=== PATIENT | female | born 1975 | race Caucasian/White ===

== ENCOUNTER → 2017-01-09 | Outpatient (CLI) | payer MEDICAID ==
--- NOTE | 2017-01-09 11:14 | US ---
Complete Abdominal Ultrasound CLINICAL HISTORY: 41-year-old female with a history of some "gurgling" abdominal symptoms and weight gain. ICD 10 Diagnostic Code: R 19.8. TECHNIQUE: A curvilinear 5 MHz transducer was used to sonographically evaluate the upper abdomen. Col or Doppler was used. COMPARISON STUDY: None. FINDINGS: The pancreatic contour is normal, and mildly echogenic, consistent with some fatty infiltra tion. The abdominal aorta is normal in size, and tapers normally. The visualized IVC is normal in torie iber. The hepatic vein trifurcation is normal. The main portal vein is patent. The liver is enlarged and diffusely echogenic, consistent with steatosis, measuring 19.1 cm along the right midaxillary fanny e. There is no intra or extrahepatic bile duct dilatation. The common bile duct measures 4.6 mm. The gallbladder is moderately distended, and there is no evidence of cholelithiasis, sludge, polyp, wall thickening, pericholecystic fluid, or sonographic Tam sign. The gallbladder wall thickness is 1.9 mm. The right and the left kidneys are normal in size, shape, and contour, with a normal renal cortic al thickness, and no focal renal mass or hydronephrosis. The right kidney measures 10.8 x 4.6 x 4.8 c m, and the left kidney measures 9.5 x 5.2 x 5.2 cm. The spleen is mildly enlarged, and homogeneous in echotexture, measuring 12.5 x 4.8 x 12.4 cm. There is no ascites or pleural effusion. IMPRESSION: 1. Hepatomegaly with diffuse steatosis. 2. Mild splenomegaly. 3. Normal appearance of the gallbladder with no cholelithiasis, cholecystitis, or bile duct dilatatio n.
== END ==
LOC: FIMAGING 10:06
PROVIDERS: ATTEND Physician Assistant
DX: R19.8 Other specified symptoms and signs involving the digestive system and abdomen (principal); R63.5 Abnormal weight gain; R16.2 Hepatomegaly with splenomegaly, not elsewhere classified

== ENCOUNTER 2018-06-11 12:42 | Emergency (ER) | payer MEDICAID, OTHER ==
--- NOTE | 2018-06-11 12:57 | EDPHY ---
H & P Smoking Status: Current every day smoker Time Seen by Provider: 06/11/18 12:57 HPI/ROS: CHIEF COMPLAINT: M1 hold HISTORY OF PRESENT ILLNESS: 43-year-old female with a known history of schizoaffective disorder presents to the emergency department on an M1 hold. The patient has a history of schizophrenia and has been noncompliant with her medications. She went to [facility] today and they placed on M1 hold brought her to the emergency department for evaluation. She states that she has been eating and drinking normally. She does not feel suicidal or homicidal. She denies auditory or visual hallucinations. She has been hospitalized multiple times for mental illness, most recently was 2 years ago to get stabilized on medication. REVIEW OF SYSTEMS: Constitutional: No fever, no chills. Eyes: No double or blurry vision. ENT: No sore throat. Respiratory: No cough, no shortness of breath. Cardiac: No chest pain. Gastrointestinal: No abdominal pain, vomiting or diarrhea. Genitourinary: No dysuria. Musculoskeletal: No neck or back pain. Skin: No rashes. Neurological: No headache. (Alicia Lombardi) Past Medical/Surgical History: Schizoaffective disorder (Alicia Lombardi) Social History: Lives alone in [place] (Alicia Lombardi) Physical Exam: General Appearance: Alert, no distress. Tearful. No signs of trauma to her head. Eyes: Pupils equal and round. Extraocular motions are all intact. ENT: Mouth: Mucous membranes moist. Respiratory: No wheezing, rhonchi, or rales, lungs are clear to auscultation. Cardiovascular: Regular rate and rhythm. Gastrointestinal: Abdomen is soft and nontender, no masses, no rebound or guarding, bowel sounds normal. Neurological: Alert and oriented x 3, cranial nerves II through XII grossly intact Skin: Warm and dry, no rashes. Musculoskeletal: Nontender to palpate along the cervical, thoracic or lumbar spine. Neck is supple. Extremities: Full range of motion and no peripheral edema. Psychiatric: Patient is oriented X 3, there is no agitation. (Alicia Lombardi) Constitutional: Initial Vital Signs Temperature (C) 37.0 C 06/11/18 13:01 Heart Rate 100 06/11/18 13:01 Respiratory Rate 18 06/11/18 13:01 Blood Pressure 157/98 H 06/11/18 13:01 O2 Sat (%) 93 06/11/18 13:01 O2 Delivery Mode Room Air Allergies/Adverse Reactions: No Known Allergies Allergy (Verified 06/11/18 13:03) Home Medications: Medication Instructions Recorded LORazepam [Ativan (*)] 1 mg PO DAILY #30 tab 08/29/16 cloZAPine [Clozaril (*)] 300 mg PO DAILY #90 tab 08/29/16 Medical Decision Making ED Course/Re-evaluation: 43-year-old female known history of schizoaffective disorder presents noncompliant with her medications. She is on an M1 hold. The patient was given 10 mg of IM Haldol. She was sent for medical clearance for likely inpatient placement to stabilize on medication. (Alicia Lombardi) 0616: Patient noted be rather psychotic. We have ordered her Zyprexa. She received Ativan in the evening earlier as well as Benadryl. She appears acutely psychotic. Zyprexa will be given will re-evaluate. Patient be signed over to Dr. Torrez at 7:00 a.m. Shift change. (Angelito Cash) Patient her some remained stable. At 7:45 a.m. The patient has been accepted to [facility] under the care of . (Angel Torrez) Differential Diagnosis: Depression including functional and major depression, situational depression, medication side effect, drugs and alcohol abuse. (Alicia Lombardi) - Data Points Laboratory Results: Laboratory Results 06/11/18 12:35 06/11/18 12:35 Medications Given: Discontinued Medications Diphenhydramine HCl (Benadryl) 50 mg PO EDNOW ONE Stop: 06/12/18 02:01 Last Admin: 06/12/18 02:05 Dose: 50 mg Haloperidol Lactate (Haldol Injection) 10 mg IM EDNOW ONE Stop: 06/11/18 15:36 Last Admin: 06/11/18 19:08 Dose: Not Given Lorazepam (Ativan) 2 mg PO EDNOW ONE Stop: 06/11/18 15:33 Last Admin: 06/11/18 16:15 Dose: 2 mg Lorazepam (Ativan) 2 mg PO EDNOW ONE Stop: 06/11/18 22:53 Last Admin: 06/11/18 22:53 Dose: 2 mg Lorazepam (Ativan) 1 mg PO EDNOW ONE Stop: 06/12/18 06:12 Last Admin: 06/12/18 06:13 Dose: 1 mg Olanzapine (Zyprexa Zydis) 10 mg PO EDNOW ONE Stop: 06/12/18 06:13 Last Admin: 06/12/18 06:13 Dose: 10 mg Departure - Departure Disposition: Other Psych, Not [facility] Clinical Impression: Schizoaffective disorder Qualifiers: Schizoaffective disorder type: unspecified Qualified Code(s): F25.9 - Schizoaffective disorder, unspecified Condition: Fair Referrals: Patient,NotPresent [Unknown] - As per Instructions
--- NOTE | 2018-06-11 13:09 | EDPHY ---
H & P Time Seen by Provider: 06/11/18 12:57 HPI/ROS: CHIEF COMPLAINT: M1 hold HISTORY OF PRESENT ILLNESS: [must have 4 elements] REVIEW OF SYSTEMS: Constitutional: [No fever, no chills.] Eyes: [No double or blurry vision.] ENT: [No sore throat.] Respiratory: [No cough, no shortness of breath.] Cardiac: [No chest pain.] Gastrointestinal: [No abdominal pain, vomiting or diarrhea.] Genitourinary: [No dysuria.] Musculoskeletal: [No neck or back pain.] Skin: [No rashes.] Neurological: [No headache.] Smoking Status: Current every day smoker Constitutional: Initial Vital Signs Temperature (C) 37.0 C 06/11/18 13:01 Heart Rate 100 06/11/18 13:01 Respiratory Rate 18 06/11/18 13:01 Blood Pressure 157/98 H 06/11/18 13:01 O2 Sat (%) 93 06/11/18 13:01 O2 Delivery Mode Room Air Allergies/Adverse Reactions: No Known Allergies Allergy (Verified 06/11/18 13:03) Home Medications: Medication Instructions Recorded LORazepam [Ativan (*)] 1 mg PO DAILY #30 tab 08/29/16 cloZAPine [Clozaril (*)] 300 mg PO DAILY #90 tab 08/29/16 Departure - Departure Referrals: Patient,NotPresent [Primary Care Provider] - As per Instructions
[2018-06-11 13:50] LABS: PLATELET COUNT 260 10^3/uL (150-400)
[2018-06-11] MEDS ORDERED: LORazepam 1 MG TAB PO ONE ×2 (15:32→22:52)
[2018-06-11] MEDS ORDERED: HALOPERIDOL LACT 5 MG/ML INJ IM ONE (15:35)
[2018-06-11] MEDS ORDERED: LORazepam 1 MG TAB ONE (22:50)
[2018-06-12] MEDS ORDERED: diphenhydrAMINE 25 MG CAP PO ONE (02:00)
[2018-06-12] MEDS ORDERED: OLANZapine 10 MG/2 ML VIAL IM ONE (05:58)
[2018-06-12] MEDS ORDERED: OLANZapine DISINTEGR 10 MG TAB ONE (06:00)
[2018-06-12] MEDS ORDERED: LORazepam 1 MG TAB ONE (06:07)
[2018-06-12] MEDS ORDERED: LORazepam 1 MG TAB PO ONE ×2 (06:11→09:08)
[2018-06-12] MEDS ORDERED: OLANZapine DISINTEGR 10 MG TAB PO ONE (06:12)
[2018-06-12 09:42] VITALS: BP 129/85
== END 2018-06-12 09:39 ==
LOC: EDUNIT#
DX: F25.9 Schizoaffective disorder, unspecified (principal); F17.200 Nicotine dependence, unspecified, uncomplicated
CPT/HCPCS: 80305; G0480; J1630

== ENCOUNTER 2018-11-27 13:42 | Inpatient (IN) | payer MEDICAID, OTHER ==
[2018-11-27] MEDS ORDERED: OLANZapine 10 MG/2 ML VIAL IM ONE (13:56)
--- NOTE | 2018-11-27 13:56 | EDPHY ---
H & P Source: Patient Exam Limitations: No limitations - Medical/Surgical History Hx Asthma: No Hx Chronic Respiratory Disease: No Hx Diabetes: No Hx Cardiac Disease: No Hx Renal Disease: No Hx Cirrhosis: No Hx Alcoholism: No Hx HIV/AIDS: No Hx Splenectomy or Spleen Trauma: No Other PMH: schizoaffective disorder - Social History Smoking Status: Current every day smoker Time Seen by Provider: 11/27/18 13:45 HPI/ROS: CHIEF COMPLAINT: M1 psychiatric hold HISTORY OF PRESENT ILLNESS: The patient presents the emergency department on M1 psychiatric hold. She has a history of schizoaffective disorder. The patient reportedly has been off of her regular medications. She was found psychotic in the [employer] the parking lot. In the emergency department the patient is quite disorganized and psychotic. She is unable to provide any significant history. The patient typically is followed at [facility]. The patient's mother is reportedly in route to the emergency department. REVIEW OF SYSTEMS: A comprehensive 10 point review of systems is otherwise negative aside from elements mentioned in the history of present illness. To the emergency department. (Zoran Collins) - Physical Exam Exam: General Appearance: Disheveled female Eyes: Pupils equal and round no pallor or injection ENT, Mouth: Mucous membranes moist Respiratory: There are no retractions, lungs are clear to auscultation Cardiovascular: Regular rate and rhythm Gastrointestinal: Abdomen is soft and nontender, no masses, bowel sounds normal Neurological: 5/5 strength all 4 extremities Skin: Warm and dry, no rashes Musculoskeletal: Neck is supple nontender Extremities: symmetrical, full range of motion Psychiatric: Psychotic (Zoran Collins) Constitutional: Initial Vital Signs Temperature (C) 36.4 C 11/27/18 13:45 Heart Rate 108 H 11/27/18 13:45 Respiratory Rate 18 11/27/18 13:45 Blood Pressure 183/74 H 11/27/18 13:45 O2 Sat (%) 94 11/27/18 13:45 O2 Delivery Mode Room Air Allergies/Adverse Reactions: No Known Allergies Allergy (Verified 06/11/18 13:03) Home Medications: Medication Instructions Recorded NK [No Known Home Meds] 11/28/18 Medical Decision Making ED Course/Re-evaluation: The patient presents the ED with acute psychosis. The patient did receive Zyprexa upon arrival. The patient is quite uncooperative and refuses to be examined even after taking this medication. The patient was placed on an M1 72 hr hold. Screening laboratories have been sent which do demonstrate a leukocytosis, evidence of dehydration and a slight lactic lactic acidosis. The patient's mother is reliable historian and has come to the emergency department. She tells me she has been concerned about the patient's increasing abdominal distension in the setting of her long-term psychiatric medications. The patient apparently has not consented to any laboratory testing or imaging in the past. The patient currently denies any complaints of abdominal pain and refuses to let me perform a adequate abdominal examination. The patient does consent to receiving IV fluids. She received an additional 1 mg of Ativan. In the setting of her leukocytosis I have ordered a CT scan of the abdomen pelvis. Patient is noted to have nonspecifically elevated liver function test. The patient was seen by the psychiatric service. She is tentatively accepted at [address] [place] [address] however the on-call psychiatrist would not accept her until her " labs looked better." The patient will receive 2 L of normal saline and have her laboratory studies repeated. Patient will be transferred to Dr. Logan at 9pm. (Zoran Collins) Differential Diagnosis: The differential diagnosis considered includes psychosis, bipolar mood disorder , dehydration, metabolic abnormalities, substance intoxication (Zoran Collins ) Other Provider: Care assumed from Dr. Collins at 9:00 p.m., plan for abdominal CT. Additionally CBC LFTs and chemistry will be repeated after IV fluids. 2124: CT report reviewed. 2204: Results and plan including CT reading discussed with the mother at this time, by myself. Signed out to Dr. Candelario Lemus with plan for repeat labs after IV fluids, psychiatric inpatient placement. (Gustavo Logan) [address] Logan pending IV hydration and reassessment of laboratory values for planned medical clearance for mental health facility. [address] corea are improved. I anticipate patient can be transferred to [address] [place] [address] in the morning. (Dean Lemus) I assumed care of this patient from Dr. Lemus at 7:00 a.m. On 11/28/2018. The patient has been somewhat agitated and was given a dose of Ativan 1 mg IV. Her last dose of Ativan was at 1:30 a.m.. This will be her 4th dose of Ativan since her admission to the emergency department. She also received Zyprexa 10 mg yesterday. Her agitation worsened after she was notified that she would be admitted to [address] [place] [address]. I reviewed her original labs and the repeat labs, drawn after she was hydrated. Her sodium has normalized. I reviewed her 8:00 a.m. Vital signs and she is no longer tachycardic. I feel that she is medically safe for admission to [address] [place] [address]. EMTALA form has been completed. Transfer will be arranged. (Zee Mosley) - Data Points Laboratory Results: Laboratory Results 11/27/18 22:30 11/27/18 22:30 Medications Given: Clozapine (Clozaril) 25 mg PO HS LYNDON Stop: 05/27/19 20:59 Last Admin: 11/28/18 22:11 Dose: 25 mg Discontinued Medications Sodium Chloride (Ns) 1,000 mls @ 0 mls/hr IV EDNOW ONE; Wide Open PRN Reason: Protocol Stop: 11/27/18 18:17 Last Admin: 11/27/18 19:09 Dose: Not Given Sodium Chloride (Ns) 1,000 mls @ 0 mls/hr IV EDNOW ONE; Wide Open PRN Reason: Protocol Stop: 11/27/18 18:17 Last Admin: 11/27/18 19:10 Dose: Not Given Sodium Chloride (Ns) 1,000 mls @ 0 mls/hr IV EDNOW ONE; Wide Open PRN Reason: Protocol Stop: 11/27/18 19:53 Last Admin: 11/27/18 19:53 Dose: 1,000 mls Sodium Chloride (Ns) 1,000 mls @ 0 mls/hr IV EDNOW ONE; Wide Open PRN Reason: Protocol Stop: 11/27/18 20:40 Last Admin: 11/27/18 20:40 Dose: 1,000 mls Lorazepam (Ativan Injection) 1 mg IVP EDNOW ONE Stop: 11/27/18 19:53 Last Admin: 11/27/18 19:54 Dose: 1 mg Lorazepam (Ativan Injection) 1 mg IVP EDNOW ONE Stop: 11/28/18 01:42 Last Admin: 11/28/18 01:42 Dose: 1 mg Lorazepam (Ativan Injection) 1 mg IVP EDNOW ONE Stop: 11/28/18 07:36 Last Admin: 11/28/18 07:45 Dose: 1 mg Lorazepam (Ativan Injection) 1 mg IVP EDNOW ONE Stop: 11/28/18 09:16 Last Admin: 11/28/18 09:23 Dose: 1 mg Olanzapine (Zyprexa Injection) 10 mg IM EDNOW ONE Stop: 11/27/18 13:57 Last Admin: 11/27/18 14:06 Dose: 10 mg Paliperidone (Invega) 6 mg PO ONCE ONE Stop: 11/28/18 10:50 Last Admin: 11/28/18 11:50 Dose: Not Given Departure - Departure Disposition: [facility] IP Clinical Impression: Dehydration Psychosis Qualifiers: Psychosis type: schizotypal disorder Qualified Code(s): F21 - Schizotypal disorder Schizoaffective disorder Qualifiers: Schizoaffective disorder type: unspecified Qualified Code(s): F25.9 - Schizoaffective disorder, unspecified Condition: Fair
[2018-11-27 16:26] LABS: PLATELET COUNT 327 10^3/uL (150-400)
[2018-11-27] MEDS ORDERED: NS 1,000 ML IV ONE ×4 (18:16→20:39)
[2018-11-27] MEDS ORDERED: LORazepam 2 MG/ML INJ ONE (19:41)
[2018-11-27] MEDS ORDERED: LORazepam 2 MG/ML INJ IVP ONE (19:52)
[2018-11-27] MEDS ORDERED: IOPAMIDOL (ISOVUE-300) 100 ML BTL ONE (20:11)
[2018-11-27 23:21] LABS: PLATELET COUNT 269 10^3/uL (150-400)
[2018-11-28] MEDS ORDERED: LORazepam 2 MG/ML INJ ONE (01:33)
[2018-11-28] MEDS ORDERED: LORazepam 2 MG/ML INJ IVP ONE ×3 (01:41→09:15)
--- NOTE | 2018-11-28 07:48 | ASMTTLCEVL ---
TLC Evaluation - Basic Information Evaluation Start Date and 11/27/2018 06:30 PM Time Hospital Status Answers: Court-Ordered Court-Ordered Start Date 09/30/2018 08:20 PM and Time Patient statement Notes: Im just really mad at people. No, Im just fine. Narrative Notes: Pt is a 43 year old female with a hx of schizophrenia, on a terminal clerk cert from Dr. Carmona at [facility]. Pt is an open client at [facility]. Per mother, Maddison, for the past weeks she has noticed pt declining. Maddison states pt believes she is a [employer] general and is saluting people, believes she is a doctor of psychiatry and insists people call her Dr. Clayton. Pt did tell this ad copy writer Dr. Clayton was her name. Maddison stated that pt also has been chanting in Telugu and talking to spirits. Maddison stated that today she called pt several time but she did not answer the phone so she went to her apt to check on her but pt would not answer the door. Maddison stated that is unlike her. Mother states she does have a mercado to pts apt and when he went inside, it appeared that nobody has been staying there for a while. Mother stated that the police believe she has been living on the streets. Mother stated that when pt stays on her medications she is able to function independlty. Per Dr. Carmona letters for [facility], Ms. Saleem has a serious mental illness and as a result, remains gravely disabled, Pt accepts voluntary but evidence suggests she would not follow recommended treatment if not on a court order. She is not competent to participate in decisions. Without medications, she is unable to meet her basic needs for survival. Pt was unable to participate in the evaluation. Information for this eval was obtained from [facility] and Mother Waldemar. Diagnosis History Notes: Pt has a hx of schizophrenia. Prior suicide attempts Notes: None reported. Prior hospitalizations Notes: Pt has a hx of 19 hospitalizations with her first one when she was 20 years old. Pt has been to [facility] multiple times and has stayed for a couple months. Pt was also at [facility] in June 2018. Pt was at [facility] on 08/2016. Treatment Responses Notes: Mother Maddison states that the longer pt stays in the hospital, the better she does when she discharges. History of violence Notes: None reported. Psychiatrist: Dr. Tristen Carmona Medications (name, dosage, route, freq uency) Notes: Clozapine. Per mother, pt has a hx of checking her meds. Mother suspects pt may not be taking her medications. Allergies/Reaction Notes: Nka Sleep Notes: Per mother, she doesnt believe pt has been sleeping. Appetite Notes: Unable to assess. Medical/Surgical history Notes: Mother suspects pt may have type 2 diabetes and reports she has had difficulty breathing and worries about sleep apnea. Substance use history (frequency, intensity, his tory, duration) Notes: Unable to assess. Pts utox was positive for marijuana. Family composition Notes: Pt has 2 sisters and 1 brother. Mother reports they are all very supportive of pt. Need for family Answers: Yes participation in patient's care Family psychiatric/substance abuse history Notes: Pts mother stated she suspects her mother may have been bipolar but was never dx. Mother stated that pts GMOC experienced extreme highs and lows and stated, I went through hell growing up. Mother also reported that on pts paternal side, someone in a mental institution but nobody would talk about it. Developmental history Notes: Mother stated that pt is highly intelligent and has tested at "a genius level." Mother stated prior to pt becoming ill, she was at the top of her class in high school. Abuse concerns Answers: None Marital status/children Notes: Unmarried, pt has one 8 year old daughter adopted. Living situation Notes: Pt lives alone in [address] 8 housing in [place]. Pt mother states she goes and checks on pt frequently. Sexual history/orientation Notes: Pt is heterosexual Peer support/family strengths Notes: Pts primary support is mother and therapeutic relationships. Education level/history Notes: Pt is reported to have always been artistic and earned several scholar ships to attend art school. However according to pts mother pt has only completed one year of college. 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 Notes: None reported. Legal Notes: Pt has a hx of being in [facility]ci. Reason unclear. Taoism/Spiritual Notes: Pt is reportedly Judaism and speaks Telugu well. Leisure Notes: Per mother, pt is artistic. Collateral Notes: Mother-Maddison MHP Patient's strengths Answers: Artistic/Creative/Musical (Please select at least TWO strengths): Intelligent Supportive Family [facility] Evaluation - Mental Status Exam Appearance: Answers: Unkempt Disheveled Eye Contact: Answers: Avoiding Mood: Answers: Irritable Affect: Answers: Distracted Hostile Behavior: Answers: Uncooperative Restless Wandering Speech: Answers: Illogical Thought Process: Answers: Disorganized Disoriented Insight: Answers: Poor Judgement: Answers: Poor Hallucinations: Answers: Auditory Command Delusions: Answers: Taoism/Spiritual Pt reported to have Answers: No suicidal/self-injuring ideation/behavior? Pt reported to be making Answers: No suicidal/self-injuring threats? Pt reported to have Answers: No aggression/assault ideation/behavior? Pt reported to be making Answers: No aggression/assault threats? Pt exhibits inability to Answers: Yes care for self/grave disability? Ideation/behavior is Answers: Yes chronic? Patient has a specific Answers: No plan? History of Answers: No suicidal/self-injuring ideation, behavior, or threats? History of Answers: No aggressive/assaultive ideation, behavior, or threats? History of serious Answers: No physical harm to self/others while in treatment setting? [facility] Evaluation - Suicide/Homicide Risk Suicide Risk Factors: Answers: Agitation Impulsivity Schizoaffective Disorder Schizophrenia Homicide/violence risk Answers: None factors: Current Suicidal Answers: No Ideation? Current Suicidal Ideation Answers: No in the Past 48 Hours? Current Suicidal Ideation Answers: No in the Past Month? Current Suicidal Answers: No Ideation, Worst Ever? Suicide Internal Answers: Taoism Beliefs Protective Factors: Suicide External Answers: Responsibility to Protective Factors: Children Social Support Ranking of patient's Answers: Moderate suicidal risk: Ranking of patient's Answers: Low homicidal risk: TLC Evaluation - Wrap-up BDI Total Score: Unable to complete BSS Total Score: Unable to complete AXIS I Diagnosis (include DSM-V and ICD-10 codes), must also be entered in [employer], which is the source of truth. Notes: Schizophrenia 295.90 (F20.9) In consultation with [facility] ED physician, Zee Mosley MD and on-call psychiatric clinican, Lemuel Mendez both concurred that pt appears to meet 27-65 criteria requiring psychiatric hospitalization as pt appears to be gravely disabled due to a mental illness condition. Evaluation End Date and 11/27/2018 08:35 PM Time (HH:SHRAVAN): Date Signed: 11/28/2018 07:48 AM Electronically Signed By:Violet Calle
--- NOTE | 2018-11-28 07:51 | ASMTLCPROG ---
Notes Note: Notes: TLC attempted to explain to pt need for inpt hospitalization and informed of admission to 3 with no success. Pt refused to sign pt. rights. TLC met with mother to inform of [facility] admission. Mother expressed agreement to pt.'s admission and satisfactiion with 3 admission since pt had been successfully treated at [facility] MH unit in the past. TLC informed MHP of pt.'s dispo, spoke jones Owusu who will initiate transfer of cert to . Date Signed: 11/28/2018 07:51 AM Electronically Signed By:Violet Calle
--- NOTE | 2018-11-28 07:53 | ASMTTCLDSP ---
TLC Discharge Disposition Disposition: Answers: Admit Disposition Notes: Notes: In consultation with [facility] ED physician, Zee Mosley MD and on-call psychiatric clinican, Lemuel Mendez both concurred that pt appears to meet 27-65 criteria requiring psychiatric hospitalization as pt appears to be gravely disabled due to a mental illness condition. For inpatient Lemuel Mendez [facility] admission, the following psychiatrist agreed to accept patient for admission to [facility] ([facility]): Hold initiated by: Answers: Other Notes: retirement certification Date Signed: 11/28/2018 07:52 AM Electronically Signed By:Violet Calle
[2018-11-28] MEDS ORDERED: MAGNESIUM HYDROXIDE 30 ML UDCUP PO PRN (10:43)
[2018-11-28] MEDS ORDERED: MAG HYDROX/AL HYDROX/SIMETH 30 ML UDCUP PO PRN (10:43)
[2018-11-28] MEDS ORDERED: OLANZapine DISINTEGR 10 MG TAB PO PRN (10:43)
[2018-11-28] MEDS ORDERED: LORazepam 0.5 MG TAB PO PRN ×2 (10:43→10:53)
[2018-11-28] MEDS ORDERED: ACETAMINOPHEN 325 MG TAB PO PRN (10:43)
[2018-11-28] MEDS ORDERED: PALIPERIDONE 3 MG TAB.ER PO ONE (10:49)
--- NOTE | 2018-11-28 13:28 | BAPA ---
DATE OF SERVICE: 11/28/2018 CHIEF COMPLAINT: "I am also a doctor. I am a doctor from the [facility]." HISTORY OF PRESENT ILLNESS: Patient refuses to meet with this MOLDER MACHINE for psychiatric assessment and history. The following information will be taken from previous records, emergency department note, TLC evaluation, and records from patient's outpatient provider at [facility]. From the ED note dated 11/27/2018, the patient presents to the emergency department on M1 psychiatric hold. The patient reportedly has a history of schizoaffective disorder. The patient has reportedly been off her regular medications. The patient was found psychotic in the [employer] parking lot. Patient presents to the emergency department disorganized and psychotic. The patient was unable to provide any significant information during ED evaluation. The patient is followed by [facility] for outpatient treatment. From the TLC evaluation dated 11/27/2018, patient is currently on a long-term certification and court-ordered medications from [facility]. The court-ordered start time of 09/30/2018, at 8:20 p.m. Patient reported to the [facility] seaman officer, "I'm just really mad at people. No, I'm just fine." The patient has a history of schizophrenia and is currently on a long-term certification from Dr. Carmona at [facility]. The patient is an open client at [facility]. The patient's mother reported she has noticed the patient has been declining over the past several weeks. Mother reports patient believes she is a [employer] and is saluting people, believes she is a doctor of Psychiatry and insists people call her Dr. Clayton. Patient did report to the [facility] seaman officer that her name is Dr. Clayton. Mother reported she visited the patient's apartment, and when she went inside, it appeared that nobody had been staying there for quite some time. Mother reported she believes patient has been living on the streets. Mother reported when patient is adherent with medications, she is able to function independently. The patient is currently on long-term certification and court- ordered medications due to being gravely disabled due to her mental illness. From the patient's outpatient provider, [facility], the patient did not present for daily monitored meds on Saturday after a 5-day med pass. Due to patient decompensating so quickly, outpatient providers are concerned she may have stopped taking medications over the holiday break. [facility] RN left patient a message recommending that she come in to the office before noon yesterday. The patient did not present, so a 24-hour post was delivered at 1:30 p.m. According to the outpatient provider's message, the patient has been not adherent to her outpatient medications. PAST PSYCHIATRIC HISTORY: From the TLC evaluation, the patient has a history of schizophrenia. Reportedly patient has a history of 19 hospitalizations with her first hospitalization when she was 20 years old. The patient has been hospitalized at [facility] at multiple times and has stayed for a course of a couple months. The patient has also been hospitalized at [facility] [place] in June of 2018. The patient was most recently hospitalized at [address] in August of 2016. The patient's mother reports that patient does respond well to treatment, and typically, the longer her hospital stay, the better she does when she discharges. The patient's mother reports the patient does have a history of cheeking her medications, and Mother reported she suspects the patient has not been taking her medications as prescribed. The patient is currently prescribed Clozaril, and this is a medication that is listed on her court-ordered medication from the court. Mother reported during the TLC evaluation, she believes patient has not been sleeping. ALLERGIES: No known allergies. CURRENT MEDICATIONS: 1. Zyprexa Zydis 10 mg p.o. q.4 hours p.r.n. for acute agitation and psychosis. 2. Ativan 1 mg p.o. q.4 hours p.r.n. for acute agitation. 3. Clozaril 25 mg p.o. q.h.s. PAST MEDICAL HISTORY: From the TLC evaluation, Mother reported to the [facility] seaman officer she suspects patient may have type 2 diabetes and reports patient has difficulty breathing and worries about sleep apnea. SOCIAL HISTORY: The patient has 2 sisters and 1 brother. The patient reports the family is very supportive of patient. The patient's mother reports patient has a history of being highly intelligent and has tested at a "genius level." The patient's mother reported that before becoming ill, patient was at the top of her class in high school. The patient is not and has one 8-year-old daughter who is adopted. The patient currently lives alone in [place] [address] in [place]. The patient's mother states she goes and checks on the patient frequently. The patient's sexual orientation is reported as heterosexual. The patient's primary support is her mother and her therapeutic relationships. The patient is reported to have always been artistic and earned several scholarships to attend art school. According to patient's mother, patient has only completed 1 year of college. 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 The patient has no history of duty. The patient does have a history of being in half-way for an unknown reason. The patient is reportedly Mormonism and speaks Korean well. SUBSTANCE USE HISTORY: From the TLC evaluation, this was unable to be assessed. The patient's urine toxicology was positive for marijuana and was negative for all other substances screened and negative for ethyl alcohol. FAMILY PSYCHIATRIC HISTORY: From the TLC evaluation, the patient's mother reported she suspects mother may have been bipolar but was never diagnosed. The patient's mother reports that the patient's maternal grandmother experienced extreme highs and lows. ADMISSION LABS AND STUDIES: 1. CBC from 11/27/2018, within normal limits except white blood cells were elevated at 16.79. Neutrophils were elevated at 82.4. Lymphocytes were low at 5.8. Eosinophils were low at 0.1. Basophils were low at 0.1. Absolute neutrophils were elevated at 13.83. Absolute lymphocytes low at 0.97. Absolute monocytes were elevated at 1.85. Absolute eosinophils were low at 0.02. 2. VBG lactic acid within normal limits at 1.33. 3. BMP within normal limits except chloride was elevated at 115. Carbon dioxide was low at 20. BUN was elevated at 48. Glucose was elevated at 110. 4. Liver function from 11/27/2018, within normal limits except conjugated bilirubin was elevated at 0.8. AST was elevated at 228. ALT elevated at 158, and albumin was elevated at 5.3. 5. Toxicology from 11/27/2018, non-negative for THC. Negative for all other substances screened and negative for ethyl alcohol. MENTAL STATUS EXAM: The patient is a well-nourished female looking older than stated chronological age. Attire is appropriate. Dress is hospital garb. Grooming status is inappropriate and disheveled. Ambulation is independent. Gait is normal and coordinated. Posture is normal and relaxed. Eye contact is inappropriate, at times staring, other times avoided. Motor activity is appropriate with purposeful, organized coordinated movements with no involuntary movements noted. Attitude is uncooperative, guarded, defensive, and irritable. The patient appears disinterested and does not relate well to this interviewer. Language production is spontaneous. Rate is rapid. Latency of response is shortened with irritable tone and high volume. Amount is at times, hyper talkative. Articulation is clear. Patient reports mood as okay with constricted, flat, and incongruent inappropriate affect. The patient's thought process is nonlinear and illogical with loose associations. The patient does not report suicidal, homicidal thoughts, ideas, or plans. The patient denies auditory or visual hallucinations. Patient reports delusions. The patient specifically reports delusions being a psychiatrist. The patient does not appear to be attending to internal stimuli. The patient is oriented to person and place. The patient's attention and concentration are poor. The patient's insight and judgment are poor. The patient does not report undesirable side effects from current medications. DIAGNOSES: Based on the patient's history and current presentation, the patient 's diagnoses are: 1. Schizophrenia. 2. Cannabis use disorder. FORMULATION: The patient is a 43-year-old female single, unemployed, currently living in [place], has most recently been reported homeless and not staying in her apartment, presents to the hospital involuntarily and currently on a long- term certification and court-ordered medications due to being gravely disabled. The patient requires continued inpatient care because of current psychosis. The patient presents with problems of increased psychosis that have likely been steadily increasing over the past week due to patient's nonadherence to outpatient medications. The patient's life has been affected by these problems including inability to test reality, communicate her basic needs, and attend to her ADLs. The exacerbation of symptoms was likely preceded by the patient's nonadherence to outpatient medications. The patient has a past psychiatric history of schizophrenia with multiple psychiatric hospitalizations since the age of 20. The patient is a high safety risk due to current psychosis, inability to test reality, communicate her basic needs, and independently care for herself. Protective factors while hospitalized include ongoing safety checks, active involvement in treatment, and support from our treatment team. The patient could benefit from inpatient hospitalization for safety, crisis stabilization, and medication evaluation. PLAN: 1. Psychotropic medications: After reviewing options, risks, and benefits with the patient, the patient agrees to continue current medications listed above. No other medication changes at this time as more time is needed to determine ongoing tolerability and efficacy. Plan is to continue to observe patient for response and side effects from medications, and ongoing monitoring and evaluation. 2. Review with patient informed consent and recommendations for psychotropic medication treatment listed below 3. Labs: A1c, lipid panel, TSH 4. Therapy: continue milieu and group therapy 5. Further investigation including gathering information from patients relatives and review of past case records to inform treatment plan. 6. Safety/Wellness plan and follow-up outpatient appointments to be established prior to discharge. Next steps are for patient to meet with career technical counselor to plan a safe discharge plan and establish outpatient services for ongoing treatment. 7. Confer with inpatient treatment team regarding treatment plan. 8. Address psychosocial stressors by meeting with special needs caregiver to establish discharge plan including referrals for outpatient services. 9. Legal status: LTC / COM 10. Consider discharge next week if patient is in stable condition, safe, and has a safe discharge plan. ESTIMATED LENGTH OF STAY: 7-10 days PSYCHOTROPIC MEDICATION TREATMENT INFORMED CONSENT and RECOMMENDATIONS: Review nature of condition, diagnosis, and prognosis. Review nature and purpose of psychotropic medication treatment. Review type of psychotropic medications being ordered. Review risk and benefits of psychotropic medication treatment. Review probable length of time will need to take medications. Review risk and benefits of not undergoing psychotropic medication treatment. Review alternative treatments to psychotropic medications. Review psychotropic medications contraindications, drug-drug interactions, side effects, and importance of reporting any side effects to a psychiatric provider or nurse during inpatient hospitalization, and upon discharge to patients psychiatric outpatient provider, primary care provider, or other health direct care counselor. Review importance of asking a nurse, psychiatric provider, or primary care provider any questions or problems concerning the psychotropic medications. Verify patient understands the information that has been provided, and understands, accepts, and agrees to psychotropic medications. Review patients safety plan and importance of patient to communicate to staff while hospitalized if patient is ever a danger to self/others, or unable to care for self, and upon discharge, the importance for patient to contact [facility] or [facility], or go to the nearest emergency room, if patient is ever a danger to self/others, or unable to care for self. Recommend that upon discharge patient establish medication management treatment with a psychiatric provider, establishes routine therapy appointments, and follow-up with primary care provider. Verify patient understands and agrees to these recommendations. /[id number]/MODL MTDD
--- NOTE | 2018-11-28 14:27 | PDMN ---
Medical Necessity Medical necessity: Pt meets inpt criteria per MD order and [facility] B-[id number], Schizophrenia Spectrum Disorders, Adult: Inpatient Care, 6 days. 43 y/o presenting on M1 hold and currently on terminal system operator certification and court- ordered medications due to being gravely disabled, hx of schizophrenia, now admitted w/schizophrenia w/current and increased psychosis requiring inpt psychiatric hospitalization.
--- NOTE | 2018-11-28 15:04 | BCON ---
INTERNAL MEDICINE CONSULTATION DATE OF CONSULTATION: 11/28/2018 REASON FOR REFERRAL: Medical clearance for inpatient behavioral health stay. HISTORY OF PRESENT ILLNESS: This patient came to the emergency department yesterday on an M1 hold. Reportedly, she had been off her psychiatric medications and was found psychotic in a parking lot at a shopping center in [place]. She was disorganized and psychotic in the emergency room and eventually had some improvement after treatment with olanzapine. She was evaluated by the mental health team and admitted for further psychiatric care. She currently complains of foot pain and requests ibuprofen but specifically requests real ibuprofen rather than substitute. PAST MEDICAL HISTORY: 1. Schizoaffective disorder. 2. Obesity. PAST SURGICAL HISTORY: She denies any history of surgeries. MEDICATIONS: 1. Clozapine daily. 2. Lorazepam 1 mg p.o. daily. SOCIAL HISTORY: She lives in supported housing by herself. She is a smoker. She does not use alcohol. Her toxicology screen was non-negative for marijuana. FAMILY HISTORY: Noncontributory. REVIEW OF SYSTEMS: On detailed discussion of her foot pain, she actually relates numbness in her feet. She denies any recent weight change but reports she has had considerable weight gain since she came into psychiatric care. She denies cough or dyspnea, fevers or chills, nausea, vomiting, constipation, or diarrhea, though she does relate that in the past week she was drinking aloe supplement and that did something to her stomach. She denies that she had diarrhea. She feels thirsty. Otherwise, a 10-point review of systems is negative. PHYSICAL EXAM: VITALS: Blood pressure is 132/91, heart rate is 123, respiratory rate is 16, oxygen saturation is 98% on room air, temperature is 36.5 degrees centigrade. Blood pressure on presentation to the emergency department was 183/74. She has not been weighed, but she is obese appearing. GENERAL: This is an obese woman, dressed in hospital smock, sitting up in bed, cooperative and in no acute distress. HEENT: Extraocular movements are intact. She is not compliant with gaze to assess pupillary response. Mucous membranes are somewhat dry. She has a crowded airway, Mallampati class 4. Dentition is in good condition. NECK: Supple. HEART: There is a regular rate and rhythm. She is tachycardic. There are no murmurs, rubs, or gallops. LUNGS: Clear to auscultation bilaterally. ABDOMEN: Obese and benign. EXTREMITIES: There is no cyanosis, clubbing, or edema. Radial and dorsalis pedis pulses are 2+ bilaterally. NEUROLOGIC: She is alert. Orientation was not checked, though she knows she is in a psychiatric hospital. Cranial nerves 2-12 to the extent that she was cooperative are grossly intact. There is no obvious focal weakness, and she is able to move all extremities. Sensation is absent to light touch on her great toes and reduced on the plantar surfaces of her feet bilaterally. LABORATORY STUDIES: Drawn yesterday in the emergency department, she had considerable leukocytosis initially with a white blood cell count of 25 and a mild right shift with 0.2, immature granulocytes. Subsequently after hydration white blood cell count was 16.79. The left shift had resolved. It was predominantly neutrophils and monocytes. There was no anemia, and platelets were normal. Venous blood gas revealed lactic acid at 1.3, which is within normal range. Serum chemistry was consistent with dehydration initially with a BUN of 53 and a creatinine of 1.3. Sodium was elevated at 147. After hydration , sodium had normalized at 141 and BUN had improved from 53 to 48. Creatinine had normalized to 1.0. She had an elevated chloride at 115 and a reduced carbon dioxide at 20. Glucose was elevated at 110 on the second determination and 142 initially. Liver function tests revealed an elevated bilirubin at 0.8, and AST and ALT were elevated at 228 and 158. Albumin was slightly high at 5.3. After hydration, bilirubin was still mildly high at 0.7 and AST and ALT had improved but were still elevated at 168 and 122. Lipid panel was done. Triglycerides were high at 191, cholesterol was low at 115, LDL was low at 42, and HDL was low at 35. Lipase was 112. TSH was normal at 0.546. Toxicology screen in the serum was negative for ethyl alcohol, and the urine was non- negative for marijuana but negative for other substances of abuse. On chart review within the past 2 years she had serologic testing for hepatitis and HIV, and these were all negative. ASSESSMENT/RECOMMENDATIONS: 1. Schizoaffective disorder and likely medication noncompliance: Pending further evaluation and management per Psychiatry and the mental health team. 2. Hepatic steatosis: Hemoglobin A1c has been ordered. If she has an elevated hemoglobin A1c, metformin would be a good medication both to treat diabetes or prediabetes and to treat hepatic steatosis. Metformin might help with weight loss as well. Advise that after discharge she be referred to Gastroenterology for further evaluation regarding her liver disease. 3. Obesity: This may be partly due to psychiatric medications. Advise consideration of avoiding medications that might cause further weight gain, but her psychosocial stabilization takes priority at present. 4. Dehydration: She was still dehydrated on the 2nd set of labs that were drawn after IV hydration in the emergency department. She currently is requesting water. Advise encouraging increased fluid intake. 5. Peripheral neuropathy of unclear etiology: Hesitate to prescribe any medications. I will add on a B12 to the labs that have already been drawn to rule out a B12 deficiency as contributory. Await hemoglobin A1c to evaluate for diabetes. She might benefit from gabapentin or pregabalin more so than ibuprofen. 6. Tobacco dependence syndrome: Advised smoking cessation. 7. Possible prediabetes or diabetes: Option of treatment with medication with metformin as discussed above. She would benefit from weight loss and dietary compliance, though these may be difficult given her psychiatric state. I see no medical contraindications to this patient's continued stay on the inpatient behavioral health unit or to any psychiatric medications or procedures. Thank you very much for including me in the care of this patient, and please do not hesitate to contact me or the hospitalist service should there be need for further medical evaluation. /[id number]/MODL MTDD
[2018-11-28] MEDS: cloZAPine 25 MG TAB PO SCH (22:11)
[2018-11-29 06:55] VITALS: BP 130/77
[2018-11-29] MEDS ORDERED: PALIPERIDONE 3 MG TAB.ER PO SCH (09:00)
--- NOTE | 2018-11-29 11:25 | ASMTBHMTP ---
Master Treatment Plan Master Treatment Plan Answers: Impaired Reality for: Date: 11/29/2018 Diagnosis on Admission: Schizophrenia 295.90 Expected length of stay: 3-5 Days Reason for admission: Notes: Per TLC Evaluation - Pt. is a 43 year old female with a hx of schizophrenia, on a sheet layer cert from Dr. Carmona at [facility]. Pt. is an open client at [facility]. Per mother, Maddison, for the past weeks she has noticed pt. declining. Maddison states pt believes she is a [employer] general and is saluting people, believes she is a doctor of psychiatry and insists people call her Dr. Clayton. Pt. did tell this write Dr. Clayton was her name. Maddison stated that pt. also has been chanting in Sinhala and talking to spirits. Maddison stated that today she called pt. several times but she did not answer the phone so she went to her apt to check on her but pt. would not answer the door. Maddison stated that is unlike her. Mother states she does have a mercado to pt's apt and when she went inside, it appeared that nobody has been staying there for a while. Mother stated that the police believe she has been living on the streets. Mother stated that when pt. stays on her medication, she is able to function independently. Pt. accepts voluntary but evidence suggests she would not follow recommended treatment if not on a court order. She is not competent to participate in decisions. Without medications, she is unable to meet her basic needs for survival." Pt. was unable to participate in the evaluation. Information for this eval was obtained from [facility] and Mother Maddison. Patient's stated presenting problems: Notes: Pt. stated she was "stripped out in a bad way" adding the police stated they had received a call from pt's mother. Patient's goals for treatment: Notes: "Get cleaned up and get out soon" Patient's strengths: Notes: Pt. stated "Not up for any of this" Identify supports outside of hospital: Notes: Pt. stated she "hates [facility]" Discharge criteria: Notes: Psychotic symptoms will be reduced or eliminated with return to baseline functioning in affect, thinking and behavior prior to discharge. Initial disposition plan/considerations: Notes: Return to apartment in [place] Master Treatment Plan Required Signatures Psychiatrist signature: Answers: Psychiatrist: RN on-shift signature: Answers: RN: Patient signature: Answers: Patient: Date Signed: 11/29/2018 11:24 AM Electronically Signed By:Codie Herrera
[2018-11-29] MEDS ORDERED: LORazepam 1 MG TAB PO PRN (13:30)
--- NOTE | 2018-11-29 15:01 | ASMTCMCOM ---
CM Note CM Note Notes: Pt and CC completed MTP and placed in pt's chart. Pt. stated she wants to be called "Dr. Clayton". Pt. stated "in the celestial timing of things this is a bad time for me to be here". Pt. reports being upset with her family for calling the police on her. Pt. stated she does not want any of her family allowed on the unit. Pt. stated she has had "issues with apartment" but declined to share more. Pt. stated she hates Dr. Carmona. Pt. declined to speak to CC further. Pt. presents as alert, disorganized, delusional, responding to internal stimuli, making odd gestures, and lacking eye contact. Staff report pt sleeping 6.5 hours and being medication compliant. Date Signed: 11/29/2018 03:01 PM Electronically Signed By:Codie Herrera
--- NOTE | 2018-11-29 16:07 | SOAPPROG ---
SOAP Progress Note Assessment/Plan: Assessment: 43 yo woman with h/o schizoaffective disorder who had been living on street was admitted to on M1 hold d/t grave disability after stopping her psych meds and exhibiting sxs of psychosis. Per ED note: The patient presents the emergency department on M1 psychiatric hold. She has a history of schizoaffective disorder. The patient reportedly has been off of her regular medications. She was found psychotic in the [place] the parking lot. In the emergency department the patient is quite disorganized and psychotic. She is unable to provide any significant history. The patient typically is followed at [facility]. The patient's mother is reportedly in route to the emergency department. Plan: 11/29/18 16:03 1. Patient is on LTC/COM. Per [facility] liaison, Antonella Lange, patient was last given Clozaril at [facility] clinic on 11/20/18. 2[address]. Carmona feels patient was doing well on Clozaril 300mg daily and would prefer no med changes, according to Antonella. Dr. Carmona claims patient is usually cooperative with taking PO meds when she's in hospital. 3. Patient took Clozaril 25mg last night. 4. CCM Subjective: Patient standing in hallway saluting peers. She told staff she is a "[employer] general." She also insists staff address her as "Dr. Clayton." She wants staff to know she is a "psychological doctor." Patient is angry that her family called police b/c she had left her apartment. She claims she is having "issues" with her apartment, but refuses to talk about it. Police found patient in parking lot acting bizarrely. Family believes she has been sleeping on street for several days b/c she was too scared at her apartment. The P liaison stated that patient was last given Clozaril at [facility] clinic on 11/20/18. Objective: Vital Signs Temp Pulse Resp BP Pulse Ox 36.5 C 128 H 16 130/77 H 97 11/28/18 10:52 11/29/18 06:00 11/29/18 06:00 11/29/18 06:00 11/29/18 06:00 MSE: Affect: Blunted Mood: "OK" TP: Disorganized, illogical TC: Denies any SI /HI, paranoid, delusional Insight/Judgment: Impaired - Time Spent With Patient Time Spent With Patient: 15" - Pending Discharge Pending Discharge Within 24 Hours: No Pending Discharge Within 48 Hours: No ICD10 Worksheet Patient Problems: Problems Problem Status Onset Dehydration Acute Psychosis Acute Schizoaffective disorder Acute Acute psychosis Acute
[2018-11-29] MEDS: cloZAPine 25 MG TAB PO SCH (19:20)
--- NOTE | 2018-11-30 17:08 | SOAPPROG ---
SOAP Progress Note Assessment/Plan: Assessment: 43 yo woman with h/o schizoaffective disorder who had been living on street was admitted to on M1 hold d/t grave disability after stopping her psych meds and exhibiting sxs of psychosis. Per ED note: The patient presents the emergency department on M1 psychiatric hold. She has a history of schizoaffective disorder. The patient reportedly has been off of her regular medications. She was found psychotic in the [place] the parking lot. In the emergency department the patient is quite disorganized and psychotic. She is unable to provide any significant history. The patient typically is followed at [facility]. The patient's mother is reportedly in route to the emergency department. Plan: 11/29/18 16:03 1. Patient is on LTC/COM. Per [facility] liaison, Antonella Lange, patient was last given Clozaril at [facility] clinic on 11/20/18. 2[address]. Carmona feels patient was doing well on Clozaril 300mg daily and would prefer no med changes, according to Antonella. Dr. Carmona claims patient is usually cooperative with taking PO meds when she's in hospital. 3. Patient took Clozaril 25mg last night. 4. CCM 11/30/18 17:05 1. Patient reluctantly taking Clozaril at HS. 2. Patient still quite psychotic, talking to herself, +RIS, insists she is "doctor." 3. Patient did not sleep last night. 4. CCM Subjective: Patient pacing in halls, talking to herself. When MD approached patient, she saluted. Last night, staff report patient stayed awake and washed her shoes in sink. She didn't believe she was given right meds until she looked at packaging herself and eventually took Clozaril. Objective: Vital Signs Temp Pulse Resp BP Pulse Ox 36.5 C 128 H 16 130/77 H 97 11/28/18 10:52 11/29/18 06:00 11/29/18 06:00 11/29/18 06:00 11/29/18 06:00 MSE: Affect: Irritable, labile Mood: "No" TP: Disorganized, illogical TC: Denies any SI/HI, +paranoid, +grandiose delusions Perception: Denies AH/VH Insight/Judgment: Impaired - Time Spent With Patient Time Spent With Patient: 15" - Pending Discharge Pending Discharge Within 24 Hours: No Pending Discharge Within 48 Hours: No ICD10 Worksheet Patient Problems: Problems Problem Status Onset Dehydration Acute Psychosis Acute Schizoaffective disorder Acute Acute psychosis Acute
[2018-11-30] MEDS: cloZAPine 25 MG TAB PO SCH (20:34)
[2018-12-01] MEDS ORDERED: cloZAPine 25 MG TAB PO SCH (06:32)
--- NOTE | 2018-12-01 06:38 | SOAPPROG ---
SOAP Progress Note Assessment/Plan: Assessment: Schizoaffective Disorder, Bipolar Type. No improvement noted. (see subjective/ objective note). Patient is not safe to discharge at this time as patient continues to exhibit signs of psychosis, and express psychosis symptoms. Patient requires continued inpatient care because of current psychosis, and requires inpatient level of care to stabilize in order to no longer be gravely disabled due to mental illness. Patient is unable to communicate her basic needs, unable to test reality, and continues to require prompting and direction from staff for all ADLs. Patient exhibits inability to provide for herself, neglecting self-care, withdrawn from social interactions, currently shows inability to maintain any appropriate aspect of personal responsibility as an adult, patient becomes agitated and irritable easily and continues exhibited irritable behavior toward staff, refusing PRN medications for acute agitation. Support system has inability to manage functional impairment at lower level of care. Patient could benefit from continued inpatient hospitalization for crisis stabilization, safety, and medication evaluation. Plan: 1. Psychotropic medications: After reviewing options, risks, and benefits patient agrees to continue current medications and agrees to increase Clozaril to 50 mg po QHS. No other medication changes at this time as more time is needed to determine ongoing tolerability and efficacy. Plan is to continue to observe patient for response and side effects from medications, and ongoing monitoring and evaluation. 2. Review with patient informed consent and recommendations for psychotropic medication treatment listed below 3. Labs: CBC (ANC) 12/04/17 4. Therapy: continue milieu and group therapy 5. Further investigation including gathering information from patients relatives and review of past case records to inform treatment plan. 6. Safety/Wellness plan and follow-up outpatient appointments to be established prior to discharge. Next steps are for patient to meet with dog daycare provider to plan a safe discharge plan and establish outpatient services for ongoing treatment. 7. Confer with inpatient treatment team regarding treatment plan. 8. Psychosocial stressors addressed through disability case manager 9. Legal status: LTC / COM 10. Consider discharge next week if patient is in stable condition, safe, and has a safe discharge plan. PSYCHOTROPIC MEDICATION TREATMENT INFORMED CONSENT and RECOMMENDATIONS: Review nature of condition, diagnosis, and prognosis. Review nature and purpose of psychotropic medication treatment. Review type of psychotropic medications being ordered. Review risk and benefits of psychotropic medication treatment. Review probable length of time patient will need to take medications. Review risk and benefits of not undergoing psychotropic medication treatment. Review alternative treatments to psychotropic medications. Review psychotropic medications contraindications, drug-drug interactions, side effects, and importance of reporting any side effects to a psychiatric provider or nurse during inpatient hospitalization, and upon discharge to patients psychiatric outpatient provider, primary care provider, or other health child day care center worker. Review importance of asking a nurse, psychiatric provider, or primary care provider any questions or problems concerning the psychotropic medications. Verify patient understands the information that has been provided, and understands, accepts, and agrees to psychotropic medications. Review patients safety plan and importance of patient to report to staff while hospitalized if patient is ever a danger to self/others, or unable to care for self, and upon discharge, the importance for patient to contact [facility] or [facility], or go to the nearest emergency room, if patient is ever a danger to self/others, or unable to care for self. Recommend that upon discharge patient establish medication management treatment with a psychiatric provider, establishes routine therapy appointments, and follow-up with primary care provider. Verify patient understands and agrees to these recommendations. 12/01/18 06:36 Subjective: Following up with patient for evaluation of psychosis, suzi, and safety. Patient states, "My name is Dr. Clayton." Patient reports taking medications as prescribed, and reports no side effects. Patient agrees to continue current medications. Objective: Vital Signs Temp Pulse Resp BP Pulse Ox 36.5 C 128 H 16 130/77 H 97 11/28/18 10:52 11/29/18 06:00 11/29/18 06:00 11/29/18 06:00 11/29/18 06:00 NURSING REPORT: Consulted with nursing for update on patients progress in treatment. Nurses report patient is not engaged in treatment, does not attend groups, slept 0 hours, was up most of the night standing in the hallway, refused PRN meds; expresses the following psychiatric symptoms: anxious and irritable; exhibits the following psychiatric symptoms: loss of reality testing , irritable, disorganized, tangential, loose associations; is eating all meals, requires continued prompting and direction from staff for ADLs, and is unable to communicate her basic needs; is agreeable to scheduled medications and taking as prescribed with no report of side effects, with no s/s of EPS/ akathisia, and denies SI/HI, denies A/V hallucinations, and reports delusions. Patient continues to refuse PRN medications. MD REPORT FROM WEEKEND: Patient reluctantly taking Clozaril, still paranoid and delusional, talking to herself. Believes she is a doctor or [employer] general. MSE: The patient is a well-nourished female looking older than stated chronological age. Attire is appropriate dress is hospital garb. Grooming status is inappropriate and disheveled. Ambulation is independent. Gait is normal and coordinated. Posture is abnormal and tense. Eye contact is inappropriate and avoided. Motor activity is appropriate with purposeful, organized, coordinated movements; with no involuntary movements. Attitude is uncooperative, defensive and guarded at times. Patient appears distracted and does not relate well to this interviewer. Language production is spontaneous. Rate is pressured. Latency of response is shortened with irritable tone. Articulation is clear. Patient reports mood as okay with expansive and inappropriate affect. Patients thought process is disorganized, non-linear and illogical, with loose associations, nonsensical. Patient does not report suicidal/homicidal thoughts, ideas, or plans. Patient denies auditory, visual hallucinations. Patient reports delusions. Patient does not appear to be attending to internal stimuli. Patients attention and concentration are poor. Patient is oriented x0. Patients insight is poor. Patients judgment is poor. - Time Spent With Patient Time Spent With Patient: 15 minutes, met with patient individually. - Pending Discharge Pending Discharge Within 24 Hours: No Pending Discharge Within 48 Hours: No ICD10 Worksheet Patient Problems: Problems Problem Status Onset Dehydration Acute Psychosis Acute Schizoaffective disorder Acute Acute psychosis Acute
--- NOTE | 2018-12-01 14:31 | ASMTCMCOM ---
CM Note CM Note Notes: CC approached pt to check in. Pt. stated she "get stressed out in here" and requested to speak to CC later. Pt. approached CC later stating she wants to make a call to her emergency contact. CC explained the pt's phone privileges have been restricted. Pt. became upset and yelled at CC. CC later interfered as pt was being verbally abusive to staff and requested pt to return to her room. Pt. then became verbally abusive to CC. Pt. presents as disorganized, irritated, rude, demanding, and uncooperative. Staff report pt. sleeping zero hours for the past two nights. Date Signed: 12/01/2018 02:29 PM Electronically Signed By:Codie Herrera
--- NOTE | 2018-12-02 10:43 | SOAPPROG ---
SOAP Progress Note Assessment/Plan: Assessment: Schizoaffective Disorder, Bipolar Type. No improvement noted. (see subjective/ objective note). Patient is not safe to discharge at this time as patient continues to exhibit signs of psychosis, and express psychosis symptoms. Patient requires continued inpatient care because of current psychosis, and requires inpatient level of care to stabilize in order to no longer be gravely disabled due to mental illness. Patient is unable to communicate her basic needs, unable to test reality, and continues to require prompting and direction from staff for ADLs. Patient exhibits inability to provide for herself, neglecting self-care, withdrawn from social interactions, currently shows inability to maintain any appropriate aspect of personal responsibility as an adult, patient becomes agitated and irritable easily and continues exhibited irritable behavior toward staff, refusing PRN medications for acute agitation. Support system has inability to manage functional impairment at lower level of care. Patient could benefit from continued inpatient hospitalization for crisis stabilization, safety, and medication evaluation. Plan: 1. Psychotropic medications: After reviewing options, risks, and benefits patient agrees to continue current medications and agrees to increase Clozaril to 50 mg po BID. No other medication changes at this time as more time is needed to determine ongoing tolerability and efficacy. Plan is to continue to observe patient for response and side effects from medications, and ongoing monitoring and evaluation. 2. Review with patient informed consent and recommendations for psychotropic medication treatment listed below 3. Labs: CBC 12/04/17 4. Therapy: continue milieu and group therapy 5. Further investigation including gathering information from patients relatives and review of past case records to inform treatment plan. 6. Safety/Wellness plan and follow-up outpatient appointments to be established prior to discharge. Next steps are for patient to meet with adult care provider to plan a safe discharge plan and establish outpatient services for ongoing treatment. 7. Confer with inpatient treatment team regarding treatment plan. 8. Psychosocial stressors addressed through complex case manager 9. Legal status: LTC / COM 10. Consider discharge next week if patient is in stable condition, safe, and has a safe discharge plan. PSYCHOTROPIC MEDICATION TREATMENT INFORMED CONSENT and RECOMMENDATIONS: Review nature of condition, diagnosis, and prognosis. Review nature and purpose of psychotropic medication treatment. Review type of psychotropic medications being ordered. Review risk and benefits of psychotropic medication treatment. Review probable length of time patient will need to take medications. Review risk and benefits of not undergoing psychotropic medication treatment. Review alternative treatments to psychotropic medications. Review psychotropic medications contraindications, drug-drug interactions, side effects, and importance of reporting any side effects to a psychiatric provider or nurse during inpatient hospitalization, and upon discharge to patients psychiatric outpatient provider, primary care provider, or other health child daycare worker. Review importance of asking a nurse, psychiatric provider, or primary care provider any questions or problems concerning the psychotropic medications. Verify patient understands the information that has been provided, and understands, accepts, and agrees to psychotropic medications. Review patients safety plan and importance of patient to report to staff while hospitalized if patient is ever a danger to self/others, or unable to care for self, and upon discharge, the importance for patient to contact [facility] or [facility], or go to the nearest emergency room, if patient is ever a danger to self/others, or unable to care for self. Recommend that upon discharge patient establish medication management treatment with a psychiatric provider, establishes routine therapy appointments, and follow-up with primary care provider. Verify patient understands and agrees to these recommendations. 12/02/18 10:42 Subjective: Following up with patient for evaluation of psychosis, suzi, and safety. Patient states, "Please you're standing too close." Patient reports taking medications as prescribed, and reports no side effects. Patient agrees to continue current medications. Objective: Vital Signs Temp Pulse Resp BP Pulse Ox 36.5 C 128 H 16 130/77 H 97 11/28/18 10:52 11/29/18 06:00 11/29/18 06:00 11/29/18 06:00 11/29/18 06:00 NURSING REPORT: Consulted with nursing for update on patients progress in treatment. Nurses report patient is not engaged in treatment, does not attend groups, slept 1.75 hours, was up most of the night standing in the hallway talking to herself, making hand motions as though she was talking to someone, refused PRN meds; expresses the following psychiatric symptoms: anxious and irritable; exhibits the following psychiatric symptoms: loss of reality testing , irritable, disorganized, tangential, loose associations; is eating all meals, requires continued prompting and direction from staff for ADLs, and is unable to communicate her basic needs; is agreeable to scheduled medications and taking as prescribed with no report of side effects, with no s/s of EPS/ akathisia, and denies SI/HI, denies A/V hallucinations, and reports delusions. Patient continues to refuse PRN medications. MD REPORT FROM WEEKEND: Patient reluctantly taking Clozaril, still paranoid and delusional, talking to herself. Believes she is a doctor or [employer] general. MSE: The patient is a well-nourished female looking older than stated chronological age. Attire is appropriate dress is hospital garb. Grooming status is inappropriate and disheveled. Ambulation is independent. Gait is normal and coordinated. Posture is abnormal and tense. Eye contact is inappropriate and avoided. Motor activity is appropriate with purposeful, organized, coordinated movements; with no involuntary movements. Attitude is uncooperative, defensive and guarded at times. Patient appears distracted and does not relate well to this interviewer. Language production is spontaneous. Rate is pressured. Latency of response is shortened with irritable tone. Articulation is clear. Patient reports mood as okay with expansive and inappropriate affect. Patients thought process is disorganized, non-linear and illogical, with loose associations, nonsensical. Patient does not report suicidal/homicidal thoughts, ideas, or plans. Patient denies auditory, visual hallucinations. Patient reports delusions. Patient does not appear to be attending to internal stimuli. Patients attention and concentration are poor. Patient is oriented x0. Patients insight is poor. Patients judgment is poor. - Time Spent With Patient Time Spent With Patient: 15 minutes, met with patient individually. - Pending Discharge Pending Discharge Within 24 Hours: No Pending Discharge Within 48 Hours: No ICD10 Worksheet Patient Problems: Problems Problem Status Onset Dehydration Acute Psychosis Acute Schizoaffective disorder Acute Acute psychosis Acute
[2018-12-02] MEDS: cloZAPine 25 MG TAB PO ONE ×2 (12:26→13:03)
[2018-12-02] MEDS ORDERED: cloZAPine 25 MG TAB PO ONE (12:34)
--- NOTE | 2018-12-02 13:01 | ASMTCMCOM ---
CM Note CM Note Notes: The patient was hostile, irritable, and suspicious. She was observed gesturing in the hallway with her hand raised. She explained that she is on a phone call restriction and requested a 2nd call to notify her "representation" that she is here. She stated, "I'm Dr. 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 Date Signed: 12/02/2018 01:00 PM Electronically Signed By:Ninfa Lawton
[2018-12-02] MEDS ORDERED: cloZAPine 25 MG TAB PO SCH (21:00)
--- NOTE | 2018-12-03 06:43 | SOAPPROG ---
SOAP Progress Note Assessment/Plan: Assessment: Schizoaffective Disorder, Bipolar Type. No improvement noted. (see subjective/ objective note). Patient is not safe to discharge at this time as patient continues to exhibit signs of psychosis, and express psychosis symptoms. Patient requires continued inpatient care because of current psychosis, and requires inpatient level of care to stabilize in order to no longer be gravely disabled due to mental illness. Patient is unable to communicate her basic needs, unable to test reality, and continues to require prompting and direction from staff for ADLs. Patient exhibits inability to provide for herself, neglecting self-care, withdrawn from social interactions, currently shows inability to maintain any appropriate aspect of personal responsibility as an adult, patient becomes agitated and irritable easily and continues exhibited irritable behavior toward staff, refusing PRN medications for acute agitation. Support system has inability to manage functional impairment at lower level of care. Patient could benefit from continued inpatient hospitalization for crisis stabilization, safety, and medication evaluation. Plan: 1. Psychotropic medications: After reviewing options, risks, and benefits patient agrees to continue current medications and agrees to change Clozaril to 100 mg po QD. No other medication changes at this time as more time is needed to determine ongoing tolerability and efficacy. Plan is to continue to observe patient for response and side effects from medications, and ongoing monitoring and evaluation. 2. Review with patient informed consent and recommendations for psychotropic medication treatment listed below 3. Labs: CBC 12/04/17 4. Therapy: continue milieu and group therapy 5. Further investigation including gathering information from patients relatives and review of past case records to inform treatment plan. 6. Safety/Wellness plan and follow-up outpatient appointments to be established prior to discharge. Next steps are for patient to meet with progressive care nurse to plan a safe discharge plan and establish outpatient services for ongoing treatment. 7. Confer with inpatient treatment team regarding treatment plan. 8. Psychosocial stressors addressed through director of casework services 9. Legal status: LTC / COM 10. Consider discharge next week if patient is in stable condition, safe, and has a safe discharge plan. PSYCHOTROPIC MEDICATION TREATMENT INFORMED CONSENT and RECOMMENDATIONS: Review nature of condition, diagnosis, and prognosis. Review nature and purpose of psychotropic medication treatment. Review type of psychotropic medications being ordered. Review risk and benefits of psychotropic medication treatment. Review probable length of time patient will need to take medications. Review risk and benefits of not undergoing psychotropic medication treatment. Review alternative treatments to psychotropic medications. Review psychotropic medications contraindications, drug-drug interactions, side effects, and importance of reporting any side effects to a psychiatric provider or nurse during inpatient hospitalization, and upon discharge to patients psychiatric outpatient provider, primary care provider, or other health child day care provider. Review importance of asking a nurse, psychiatric provider, or primary care provider any questions or problems concerning the psychotropic medications. Verify patient understands the information that has been provided, and understands, accepts, and agrees to psychotropic medications. Review patients safety plan and importance of patient to report to staff while hospitalized if patient is ever a danger to self/others, or unable to care for self, and upon discharge, the importance for patient to contact [facility] or [facility], or go to the nearest emergency room, if patient is ever a danger to self/others, or unable to care for self. Recommend that upon discharge patient establish medication management treatment with a psychiatric provider, establishes routine therapy appointments, and follow-up with primary care provider. Verify patient understands and agrees to these recommendations. 12/03/18 06:41 Subjective: Following up with patient for evaluation of psychosis, suzi, and safety. 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 Please respect me request. I usually take all of my medications during the day." Patient reports taking medications as prescribed, and reports no side effects. Patient agrees to continue current medications, and agrees to change Clozapine to AM dosing. Objective: Vital Signs Temp Pulse Resp BP Pulse Ox 36.5 C 128 H 16 130/77 H 97 11/28/18 10:52 11/29/18 06:00 11/29/18 06:00 11/29/18 06:00 11/29/18 06:00 NURSING REPORT: Consulted with nursing for update on patients progress in treatment. Nurses report patient is not engaged in treatment, does not attend groups, slept 0 hours, was up most of the night standing in the hallway talking to herself, making hand motions as though she was talking to someone, refused LYNDON and PRN meds; expresses the following psychiatric symptoms: anxious and irritable; exhibits the following psychiatric symptoms: loss of reality testing , irritable, disorganized, tangential, loose associations, nonsensical; is eating all meals, requires continued prompting and direction from staff for ADLs , and is unable to communicate her basic needs; is agreeable to scheduled medications and taking as prescribed with no report of side effects, with no s/ s of EPS/akathisia, and denies SI/HI, denies A/V hallucinations, and reports delusions. Patient continues to refuse PRN medications; patient refused Clozapine 50 mg po QHS. MD REPORT FROM WEEKEND: Patient reluctantly taking Clozaril, still paranoid and delusional, talking to herself. Believes she is a doctor or [place] general. MSE: The patient is a well-nourished female looking older than stated chronological age. Attire is appropriate dress is hospital garb. Grooming status is inappropriate and disheveled. Ambulation is independent. Gait is normal and coordinated. Posture is abnormal and tense. Eye contact is inappropriate and avoided. Motor activity is appropriate with purposeful, organized, coordinated movements; with no involuntary movements. Attitude is uncooperative, defensive and guarded at times. Patient appears distracted and does not relate well to this interviewer. Language production is spontaneous. Rate is pressured. Latency of response is shortened with irritable tone. Articulation is clear. Patient reports mood as okay with expansive and inappropriate affect. Patients thought process is disorganized, non-linear and illogical, with loose associations, nonsensical. Patient does not report suicidal/homicidal thoughts, ideas, or plans. Patient denies auditory, visual hallucinations. Patient reports delusions. Patient does not appear to be attending to internal stimuli. Patients attention and concentration are poor. Patient is oriented x0. Patients insight is poor. Patients judgment is poor. - Time Spent With Patient Time Spent With Patient: 15 minutes, met with patient individually. - Pending Discharge Pending Discharge Within 24 Hours: No Pending Discharge Within 48 Hours: No ICD10 Worksheet Patient Problems: Problems Problem Status Onset Psychosis Acute Schizoaffective disorder Chronic Acute psychosis Acute
[2018-12-03] MEDS: HALOPERIDOL LACT 5 MG/ML INJ IM PRN (11:38)
[2018-12-03] MEDS: LORazepam 2 MG/ML INJ IM PRN (11:38)
[2018-12-03] MEDS: cloZAPine 25 MG TAB PO SCH (11:43)
--- NOTE | 2018-12-03 14:25 | ASMTCMCOM ---
CM Note CM Note Notes: The patient initially attended clinical treatment team rounds. She was grandiose, escalated, and uncooperative. She was agitated, yelling, and refused to participate. She continued to refused medications; IM medication was administered. She is observed bizarrely gesturing and talking repetitively to herself both in her room, as well as in the milieu. Date Signed: 12/03/2018 02:24 PM Electronically Signed By:Ninfa Lawton
--- NOTE | 2018-12-04 07:47 | SOAPPROG ---
SOAP Progress Note Assessment/Plan: Assessment: Schizoaffective Disorder, Bipolar Type. No improvement noted. (see subjective/ objective note). Patient is not safe to discharge at this time as patient continues to exhibit signs of psychosis, and express psychosis symptoms. Patient requires continued inpatient care because of current psychosis, and requires inpatient level of care to stabilize in order to no longer be gravely disabled due to mental illness. Patient is unable to communicate her basic needs, unable to test reality, and continues to require prompting and direction from staff for ADLs. Patient exhibits inability to provide for herself, neglecting self-care, withdrawn from social interactions, currently shows inability to maintain any appropriate aspect of personal responsibility as an adult, patient becomes agitated and irritable easily and continues exhibited irritable behavior toward staff, refusing PRN medications for acute agitation, refused LYNDON medications yesterday, received ER medications (Haldol and Ativan). Support system has inability to manage functional impairment at lower level of care. Patient could benefit from continued inpatient hospitalization for crisis stabilization, safety, and medication evaluation. Plan: 1. Psychotropic medications: After reviewing options, risks, and benefits patient agrees to continue current medications. No medication changes at this time as more time is needed to determine ongoing tolerability and efficacy. Plan is to continue to observe patient for response and side effects from medications, and ongoing monitoring and evaluation. 2. Review with patient informed consent and recommendations for psychotropic medication treatment listed below 3. Labs: CBC 12/04/17 4. Therapy: continue milieu and group therapy 5. Further investigation including gathering information from patients relatives and review of past case records to inform treatment plan. 6. Safety/Wellness plan and follow-up outpatient appointments to be established prior to discharge. Next steps are for patient to meet with hospice care consultant to plan a safe discharge plan and establish outpatient services for ongoing treatment. 7. Confer with inpatient treatment team regarding treatment plan. 8. Psychosocial stressors addressed through manager of case management 9. Legal status: LTC / COM 10. Consider discharge next week if patient is in stable condition, safe, and has a safe discharge plan. PSYCHOTROPIC MEDICATION TREATMENT INFORMED CONSENT and RECOMMENDATIONS: Review nature of condition, diagnosis, and prognosis. Review nature and purpose of psychotropic medication treatment. Review type of psychotropic medications being ordered. Review risk and benefits of psychotropic medication treatment. Review probable length of time patient will need to take medications. Review risk and benefits of not undergoing psychotropic medication treatment. Review alternative treatments to psychotropic medications. Review psychotropic medications contraindications, drug-drug interactions, side effects, and importance of reporting any side effects to a psychiatric provider or nurse during inpatient hospitalization, and upon discharge to patients psychiatric outpatient provider, primary care provider, or other health healthcare liaison. Review importance of asking a nurse, psychiatric provider, or primary care provider any questions or problems concerning the psychotropic medications. Verify patient understands the information that has been provided, and understands, accepts, and agrees to psychotropic medications. Review patients safety plan and importance of patient to report to staff while hospitalized if patient is ever a danger to self/others, or unable to care for self, and upon discharge, the importance for patient to contact [facility] or [facility], or go to the nearest emergency room, if patient is ever a danger to self/others, or unable to care for self. Recommend that upon discharge patient establish medication management treatment with a psychiatric provider, establishes routine therapy appointments, and follow-up with primary care provider. Verify patient understands and agrees to these recommendations. 12/04/18 07:46 Subjective: Following up with patient for evaluation of psychosis, suzi, and safety. Patient states, "Good morning. I will work on taking my medications today." Patient agrees to continue current medications. Patient reports no side effects from current medications. Objective: Vital Signs Temp Pulse Resp BP Pulse Ox 36.5 C 128 H 16 130/77 H 97 11/28/18 10:52 11/29/18 06:00 11/29/18 06:00 11/29/18 06:00 11/29/18 06:00 NURSING REPORT: Consulted with nursing for update on patients progress in treatment. Nurses report patient is not engaged in treatment, does not attend groups, slept 2 hours, continues to be up most of the night standing in the hallway talking to herself, making hand motions as though she was talking to someone, refused LYNDON yesterday and received ER meds (Haldol and Ativan); expresses the following psychiatric symptoms: anxious and irritable; exhibits the following psychiatric symptoms: loss of reality testing, irritable, disorganized, tangential, loose associations, nonsensical; is eating all meals, requires continued prompting and direction from staff for ADLs, and is unable to communicate her basic needs; is agreeable to scheduled medications and taking as prescribed with no report of side effects, with no s/s of EPS/ akathisia, and denies SI/HI, denies A/V hallucinations, and reports delusions. MSE: The patient is a well-nourished female looking older than stated chronological age. Attire is appropriate dress is hospital garb. Grooming status is inappropriate and disheveled. Ambulation is independent. Gait is normal and coordinated. Posture is abnormal and tense. Eye contact is inappropriate and avoided. Motor activity is appropriate with purposeful, organized, coordinated movements; with no involuntary movements. Attitude is uncooperative, defensive and guarded at times. Patient appears distracted and does not relate well to this interviewer. Language production is spontaneous. Rate is pressured. Latency of response is shortened with irritable tone. Articulation is clear. Patient reports mood as okay with expansive and inappropriate affect. Patients thought process is disorganized, non-linear and illogical, with loose associations, nonsensical. Patient does not report suicidal/homicidal thoughts, ideas, or plans. Patient denies auditory, visual hallucinations. Patient reports delusions. Patient does not appear to be attending to internal stimuli. Patients attention and concentration are poor. Patient is oriented x0. Patients insight is poor. Patients judgment is poor. - Time Spent With Patient Time Spent With Patient: 15 minutes, met with patient individually. - Pending Discharge Pending Discharge Within 24 Hours: No Pending Discharge Within 48 Hours: No ICD10 Worksheet Patient Problems: Problems Problem Status Onset Psychosis Acute Schizoaffective disorder Chronic Acute psychosis Acute
[2018-12-04] MEDS: LORazepam 2 MG/ML INJ IM PRN (10:44)
[2018-12-04] MEDS: HALOPERIDOL LACT 5 MG/ML INJ IM PRN (10:44)
[2018-12-04] MEDS: cloZAPine 25 MG TAB PO SCH (10:51)
--- NOTE | 2018-12-04 12:35 | ASMTCMCOM ---
CM Note CM Note Notes: There is no observable change in the patient's affect and behavior. She continues to present as labile and hostile toward staff. The patient is seen posturing/gesturing in the hallway. She appears to be responding to internal stimuli. She is heard reciting to herself "Code 2, code 7, code, re-start code, code 1, code 3, code..." The patient continues to request multiple phone calls per shift. This ad writer explained the restriction to the patient. She replied, "You're fucked!" Date Signed: 12/04/2018 12:34 PM Electronically Signed By:Ninfa Lawton
--- NOTE | 2018-12-04 13:30 | SOAPPROG ---
SOAP Progress Note Assessment/Plan: Assessment: Dermatitis with skin fissures. Advise observing for excessive hand washing. I have prescribed triamcinolone ointment to 0.1% three times daily. Observe for resolution. 12/04/18 13:29 Subjective: Asked to see patient regarding rash and skin cracks on her hands. Patient says it is from the water. She is concerned that there is infection. Objective: Vital Signs Temp Pulse Resp BP Pulse Ox 36.5 C 128 H 16 130/77 H 97 11/28/18 10:52 11/29/18 06:00 11/29/18 06:00 11/29/18 06:00 11/29/18 06:00 Physical Exam - Physical Exam General Appearance: WD/WN, alert, no apparent distress, obese Skin: rash (Mildly erythematous flaky rash over her knuckles and scattered on the backs of her hands. Multiple fissures in the skin.) ICD10 Worksheet Patient Problems: Problems Problem Status Onset Psychosis Acute Schizoaffective disorder Chronic Acute psychosis Acute
[2018-12-04] MEDS ORDERED: HALOPERIDOL LACT 5 MG/ML INJ IM PRN (14:44)
[2018-12-04] MEDS: TRIAMCINOLONE 0.1% 15GM OINT TP SCH ×2 (16:25→19:33)
[2018-12-04] MEDS ORDERED: cloZAPine 25 MG TAB PO SCH (21:00)
--- NOTE | 2018-12-05 07:43 | SOAPPROG ---
SOAP Progress Note Assessment/Plan: Assessment: Schizoaffective Disorder, Bipolar Type. No improvement noted. (see subjective/ objective note). Patient is not safe to discharge at this time as patient continues to exhibit signs of psychosis, and express psychosis symptoms. Patient requires continued inpatient care because of current psychosis, and requires inpatient level of care to stabilize in order to no longer be gravely disabled due to mental illness. Patient is unable to communicate her basic needs, unable to test reality, and continues to require prompting and direction from staff for ADLs. Patient exhibits inability to provide for herself, neglecting self-care, withdrawn from social interactions, currently shows inability to maintain any appropriate aspect of personal responsibility as an adult, patient becomes agitated and irritable easily and continues exhibited irritable behavior toward staff, refusing PRN medications for acute agitation, refused LYNDON medications yesterday, received ER medications (Haldol and Ativan). Support system has inability to manage functional impairment at lower level of care. Patient could benefit from continued inpatient hospitalization for crisis stabilization, safety, and medication evaluation. Plan: 1. Psychotropic medications: After reviewing options, risks, and benefits patient agrees to continue current medications and increase Clozaril to 50 mg po BID. No medication changes at this time as more time is needed to determine ongoing tolerability and efficacy. Plan is to continue to observe patient for response and side effects from medications, and ongoing monitoring and evaluation. 2. Review with patient informed consent and recommendations for psychotropic medication treatment listed below 3. Labs: CBC 12/05/17 4. Therapy: continue milieu and group therapy 5. Further investigation including gathering information from patients relatives and review of past case records to inform treatment plan. 6. Safety/Wellness plan and follow-up outpatient appointments to be established prior to discharge. Next steps are for patient to meet with critical care nurse to plan a safe discharge plan and establish outpatient services for ongoing treatment. 7. Confer with inpatient treatment team regarding treatment plan. 8. Psychosocial stressors addressed through senior case manager 9. Legal status: LTC / COM 10. Consider discharge next week if patient is in stable condition, safe, and has a safe discharge plan. PSYCHOTROPIC MEDICATION TREATMENT INFORMED CONSENT and RECOMMENDATIONS: Review nature of condition, diagnosis, and prognosis. Review nature and purpose of psychotropic medication treatment. Review type of psychotropic medications being ordered. Review risk and benefits of psychotropic medication treatment. Review probable length of time patient will need to take medications. Review risk and benefits of not undergoing psychotropic medication treatment. Review alternative treatments to psychotropic medications. Review psychotropic medications contraindications, drug-drug interactions, side effects, and importance of reporting any side effects to a psychiatric provider or nurse during inpatient hospitalization, and upon discharge to patients psychiatric outpatient provider, primary care provider, or other health director of home care hospice. Review importance of asking a nurse, psychiatric provider, or primary care provider any questions or problems concerning the psychotropic medications. Verify patient understands the information that has been provided, and understands, accepts, and agrees to psychotropic medications. Review patients safety plan and importance of patient to report to staff while hospitalized if patient is ever a danger to self/others, or unable to care for self, and upon discharge, the importance for patient to contact [facility] or [facility], or go to the nearest emergency room, if patient is ever a danger to self/others, or unable to care for self. Recommend that upon discharge patient establish medication management treatment with a psychiatric provider, establishes routine therapy appointments, and follow-up with primary care provider. Verify patient understands and agrees to these recommendations. 12/05/18 07:42 Subjective: Following up with patient for evaluation of psychosis, suzi, and safety. Patient states, "Please do not interrupt me, I'm in the middle of something. FBI number 234-5, statue number 234-1, MARJORIE code 45-2." Patient reports taking medications as prescribed, and reports no side effects. Patient agrees to continue current medications. Objective: Vital Signs Temp Pulse Resp BP Pulse Ox 36.5 C 128 H 16 130/77 H 97 11/28/18 10:52 11/29/18 06:00 11/29/18 06:00 11/29/18 06:00 11/29/18 06:00 NURSING REPORT: Consulted with nursing for update on patients progress in treatment. Nurses report patient is not engaged in treatment, does not attend groups, slept 3 hours, continues to be up most of the night standing in the hallway talking to herself, making hand motions as though she was talking to someone, tearful at times, refused LYNDON yesterday and received ER meds (Haldol and Ativan); expresses the following psychiatric symptoms: anxious and irritable ; exhibits the following psychiatric symptoms: loss of reality testing, irritable, disorganized, tangential, loose associations, nonsensical; is eating all meals, requires continued prompting and direction from staff for ADLs, and is unable to communicate her basic needs; is agreeable to scheduled medications and taking as prescribed with no report of side effects, with no s/s of EPS/ akathisia, and denies SI/HI, denies A/V hallucinations, and reports delusions. MSE: The patient is a well-nourished female looking older than stated chronological age. Attire is appropriate dress is hospital garb. Grooming status is inappropriate and disheveled. Ambulation is independent. Gait is normal and coordinated. Posture is abnormal and tense. Eye contact is inappropriate and avoided. Motor activity is appropriate with purposeful, organized, coordinated movements; with no involuntary movements. Attitude is uncooperative, defensive and guarded at times. Patient appears distracted and does not relate well to this interviewer. Language production is spontaneous. Rate is pressured. Latency of response is shortened with irritable tone. Articulation is clear. Patient reports mood as okay with expansive and inappropriate affect. Patients thought process is disorganized, non-linear and illogical, with loose associations, nonsensical. Patient does not report suicidal/homicidal thoughts, ideas, or plans. Patient denies auditory, visual hallucinations. Patient reports delusions. Patient does not appear to be attending to internal stimuli. Patients attention and concentration are poor. Patient is oriented x0. Patients insight is poor. Patients judgment is poor. - Time Spent With Patient Time Spent With Patient: 15 minutes, met with patient individually. - Pending Discharge Pending Discharge Within 24 Hours: No Pending Discharge Within 48 Hours: No ICD10 Worksheet Patient Problems: Problems Problem Status Onset Psychosis Acute Schizoaffective disorder Chronic Acute psychosis Acute
[2018-12-05] MEDS ORDERED: cloZAPine 25 MG TAB PO SCH ×2 (09:00→12:30)
[2018-12-05] MEDS ORDERED: cloZAPine 100 MG TAB PO ONE (10:15)
[2018-12-05] MEDS: TRIAMCINOLONE 0.1% 15GM OINT TP SCH ×3 (10:25→20:55)
[2018-12-05] MEDS: cloZAPine 25 MG TAB PO SCH (12:46)
--- NOTE | 2018-12-05 13:14 | ASMTCMCOM ---
CM Note CM Note Notes: Pt reports feeling "fine". Pt. stated she slept "okay". Pt. stated she wants to speak with the doctor about "relief on this phone restricition", adding she would like to make 2 calls per shift and to increase the numbers she is allowed to call. Pt. stated her medications are now correct and willingly took them. CC continued to asked pt. questions, to which pt. stated she was eating and didn't want to answer any more questions. Pt. presents as alert, tense, delusional, fair eye contact, fidgety, and cooperative. Staff report pt. sleeping 3 hours and being medication compliant. Date Signed: 12/05/2018 01:13 PM Electronically Signed By:Codie Herrera
[2018-12-06] MEDS: cloZAPine 25 MG TAB PO SCH (09:00)
[2018-12-06] MEDS: TRIAMCINOLONE 0.1% 15GM OINT TP SCH ×3 (10:11→21:33)
[2018-12-06] MEDS ORDERED: HALOPERIDOL LACT 5 MG/ML INJ IM PRN (18:44)
--- NOTE | 2018-12-06 18:48 | SOAPPROG ---
SOAP Progress Note Assessment/Plan: Assessment: 43 yo woman with h/o schizoaffective disorder who had been living [address] was admitted to on M1 hold d/t grave disability after stopping her psych meds and exhibiting sxs of psychosis. Per ED note: The patient presents the emergency department on M1 psychiatric hold. She has a history of schizoaffective disorder. The patient reportedly has been off of her regular medications. She was found psychotic in the [place] the parking lot. In the emergency department the patient is quite disorganized and psychotic. She is unable to provide any significant history. The patient typically is followed at [facility]. The patient's mother is reportedly in route to the emergency department. Plan: 12/06/18 18:45 1. Patient requested Lemuel Mendez change her HS dose of Clozaril to AM. It was also increased from 50mg to 100mg on 12/05/18. 2. Patient pacing up and down halls talking out loud to herself. She has also been washing her feet compulsively in basin in her room. 3. Patient only slept 1 hr last night. 4. Staff have not been able to draw blood to check CBC. Her last CBC was on . Her ANC was elevated at 13.83. 5. Given the fact that patient has h/o nonadherence to meds and doesn't like to have blood drawn, she doesn't seem like great candidate for Clozaril. Discuss with Dr. Carmona, her OP psych MD, his assessment and if any other agents would be more effective. 6. LTC/COM Subjective: Patient is walking up and down halls talking to herself. Staff note she seems to be reciting numbers at times and chanting at other times. Patient continues to wash her feet in basin in her room. Objective: Vital Signs Temp Pulse Resp BP Pulse Ox 36.5 C 128 H 16 130/77 H 97 11/28/18 10:52 11/29/18 06:00 11/29/18 06:00 11/29/18 06:00 11/29/18 06:00 MSE: Affect: Constricted Mood: No response TP: Unable to assess b/c patient won't answer questions TC: No report of any SI/HI Insight/Judgment: Impaired - Time Spent With Patient Time Spent With Patient: 15" - Pending Discharge Pending Discharge Within 24 Hours: No Pending Discharge Within 48 Hours: No ICD10 Worksheet Patient Problems: Problems Problem Status Onset Psychosis Acute Schizoaffective disorder Chronic Acute psychosis Acute
[2018-12-07] MEDS: TRIAMCINOLONE 0.1% 15GM OINT TP SCH ×3 (09:25→22:38)
[2018-12-07] MEDS: cloZAPine 25 MG TAB PO SCH ×2 (09:25→21:07)
--- NOTE | 2018-12-07 16:02 | ASMTCMCOM ---
CM Note CM Note Notes: CC attempted to meet with pt several times throughout the weekend. Pt. would often refuse to speak with CC or was unwilling to answer any questions. Pt. refused her medication on Saturday and was given an IM injection. Pt. was then spitting around the unit. Staff report pt. sleeping 30 minutes and needing to be redirected often. Pt. appears to be responding to internal stimuli and is often irritated with staff. Staff report pt. hoarding toiletries in her room Date Signed: 12/07/2018 04:02 PM Electronically Signed By:Codie Herrera
[2018-12-07] MEDS ORDERED: HALOPERIDOL LACT 5 MG/ML INJ IM PRN (16:42)
--- NOTE | 2018-12-07 16:48 | SOAPPROG ---
SOAP Progress Note Assessment/Plan: Assessment: 43 yo woman with h/o schizoaffective disorder who [place] [address] was admitted to [facility] on M1 hold d/t grave disability after stopping her psych meds and exhibiting sxs of psychosis. Per ED note: The patient presents the emergency department on M1 psychiatric hold. She has a history of schizoaffective disorder. The patient reportedly has been off of her regular medications. She was found psychotic in the [place] the parking lot. In the emergency department the patient is quite disorganized and psychotic. She is unable to provide any significant history. The patient typically is followed at [facility]. The patient's mother is reportedly in route to the emergency department. Plan: 12/06/18 18:45 1. Patient requested Lemuel Mendez change her HS dose of Clozaril to AM. It was also increased from 50mg to 100mg on 12/05/18. 2. Patient pacing up and down halls talking out loud to herself. She has also been washing her feet compulsively in basin in her room. 3. Patient only slept 1 hr last night. 4. Staff have not been able to draw blood to check CBC. Her last CBC was on . Her ANC was elevated at 13.83. 5. Given the fact that patient has h/o nonadherence to meds and doesn't like to have blood drawn, she doesn't seem like great candidate for Clozaril. Discuss with Dr. Carmona, her OP psych MD, his assessment and if any other agents would be more effective. 6. LTC/COM PLAN: 12/07/18 16:42 1. Patient refused Clozaril this AM. Will change to HS dose since patient seemed to sleep better when she received her medication at HS. 2. Patient continues to talk out loud to herself and has started spitting. 3. Will order CBC for Saturday AM. Patient has not cooperated with previous attempts to draw blood. If that continues to be the case, may need to reconsider having her on Clozaril. 4. LTC/COM Subjective: Patient seen while sitting at table by window. Previously she has been pacing halls, gesticulating and making strange signs with her hands. Staff have overheard patient saying things like, "Code 4-7...there are bugs in our food...that's happening in [facility] [place]...[place]" to no one in particular. Patient has also started spitting on furniture, including the swinging doors to nurse's station. She refused Clozaril this AM. Objective: Vital Signs Temp Pulse Resp BP Pulse Ox 36.5 C 128 H 16 130/77 H 97 11/28/18 10:52 11/29/18 06:00 11/29/18 06:00 11/29/18 06:00 11/29/18 06:00 MSE: Affect: Blunted Mood: "Code 4" TP: Disorganized, illogical TC: Denies any SI/HI, delusional Perceptions: Clearly responding to IS/ES Insight/ Judgment: Impaired - Time Spent With Patient Time Spent With Patient: 15" - Pending Discharge Pending Discharge Within 24 Hours: No Pending Discharge Within 48 Hours: No ICD10 Worksheet Patient Problems: Problems Problem Status Onset Psychosis Acute Schizoaffective disorder Chronic Acute psychosis Acute
[2018-12-08 07:59] LABS: PLATELET COUNT 209 10^3/uL (150-400)
--- NOTE | 2018-12-08 08:40 | SOAPPROG ---
SOAP Progress Note Assessment/Plan: Assessment: Schizoaffective Disorder, Bipolar Type. No improvement noted. (see subjective/ objective note). Patient is not safe to discharge at this time as patient continues to exhibit signs of psychosis, and express psychosis symptoms. Patient requires continued inpatient care because of current psychosis, and requires inpatient level of care to stabilize in order to no longer be gravely disabled due to mental illness. Patient is unable to communicate her basic needs, unable to test reality, and continues to require prompting and direction from staff for ADLs. Patient exhibits inability to provide for herself, neglecting self-care, withdrawn from social interactions, currently shows inability to maintain any appropriate aspect of personal responsibility as an adult, patient becomes agitated and irritable easily and continues exhibited irritable behavior toward staff, refusing PRN medications for acute agitation, refused LYNDON medications Saturday, has not been consistently taking Clozaril, refusing, and slowing titration of medication. Support system has inability to manage functional impairment at lower level of care. Patient could benefit from continued inpatient hospitalization for crisis stabilization, safety, and medication evaluation. Plan: 1. Psychotropic medications: After reviewing options, risks, and benefits patient agrees to continue current medications. Will continue Clozaril at current 100 mg dose at HS as patient has not taken consistent for more than one day; refused this dose on Saturday. If patient adherent to this dose today at HS will increase to 150 mg for Saturday HS. No other medication changes at this time as more time is needed to determine ongoing tolerability and efficacy. Plan is to continue to observe patient for response and side effects from medications, and ongoing monitoring and evaluation. 2. Review with patient informed consent and recommendations for psychotropic medication treatment listed below 3. Labs: CBC 12/08/17 4. Therapy: continue milieu and group therapy 5. Further investigation including gathering information from patients relatives and review of past case records to inform treatment plan. 6. Safety/Wellness plan and follow-up outpatient appointments to be established prior to discharge. Next steps are for patient to meet with career based intervention coordinator to plan a safe discharge plan and establish outpatient services for ongoing treatment. 7. Confer with inpatient treatment team regarding treatment plan. 8. Psychosocial stressors addressed through housing case manager 9. Legal status: LTC / [facility] 10. Consider discharge next week if patient is in stable condition, safe, and has a safe discharge plan. PSYCHOTROPIC MEDICATION TREATMENT INFORMED CONSENT and RECOMMENDATIONS: Review nature of condition, diagnosis, and prognosis. Review nature and purpose of psychotropic medication treatment. Review type of psychotropic medications being ordered. Review risk and benefits of psychotropic medication treatment. Review probable length of time patient will need to take medications. Review risk and benefits of not undergoing psychotropic medication treatment. Review alternative treatments to psychotropic medications. Review psychotropic medications contraindications, drug-drug interactions, side effects, and importance of reporting any side effects to a psychiatric provider or nurse during inpatient hospitalization, and upon discharge to patients psychiatric outpatient provider, primary care provider, or other health behavioral health care coordinator. Review importance of asking a nurse, psychiatric provider, or primary care provider any questions or problems concerning the psychotropic medications. Verify patient understands the information that has been provided, and understands, accepts, and agrees to psychotropic medications. Review patients safety plan and importance of patient to report to staff while hospitalized if patient is ever a danger to self/others, or unable to care for self, and upon discharge, the importance for patient to contact [facility] or [facility], or go to the nearest emergency room, if patient is ever a danger to self/others, or unable to care for self. Recommend that upon discharge patient establish medication management treatment with a psychiatric provider, establishes routine therapy appointments, and follow-up with primary care provider. Verify patient understands and agrees to these recommendations. 12/08/18 08:39 Subjective: Following up with patient for evaluation of psychosis, suzi, and safety. Patient states, "I'm okay." Patient reports no side effects from current medications, and agrees to continue current medications. Objective: Vital Signs Temp Pulse Resp BP Pulse Ox 36.5 C 128 H 16 130/77 H 97 11/28/18 10:52 11/29/18 06:00 11/29/18 06:00 11/29/18 06:00 11/29/18 06:00 Laboratory Results 12/08/18 06:20 NURSING REPORT: Consulted with nursing for update on patients progress in treatment. Nurses report patient is not engaged in treatment, does not attend groups, slept 7 hours; expresses the following psychiatric symptoms: anxious and irritable; exhibits the following psychiatric symptoms: unable to test reality, irritable, disorganized, tangential, loose associations, nonsensical; is eating all meals, requires continued prompting and direction from staff for ADLs, and is unable to communicate her basic needs; is agreeable to scheduled medications and taking as prescribed with no report of side effects, with no s/ s of EPS/akathisia, and denies SI/HI, denies A/V hallucinations, and reports delusions. Patient agreed to blood draw this AM. MD REPORT FROM WEEKEND: Refused Clozaril twice; switched back to HS to help w/ sleep. Haldol IM as backup for COM. Still very psychotic. MSE: The patient is a well-nourished female looking older than stated chronological age. Attire is appropriate dress is hospital garb. Grooming status is inappropriate and disheveled. Ambulation is independent. Gait is normal and coordinated. Posture is abnormal and tense. Eye contact is inappropriate and avoided. Motor activity is appropriate with purposeful, organized, coordinated movements; with no involuntary movements. Attitude is uncooperative, defensive and guarded at times. Patient appears distracted and does not relate well to this interviewer. Language production is spontaneous. Rate is pressured. Latency of response is shortened with irritable tone. Articulation is clear. Patient reports mood as okay with expansive and inappropriate affect. Patients thought process is disorganized, non-linear and illogical, with loose associations, nonsensical. Patient does not report suicidal/homicidal thoughts, ideas, or plans. Patient denies auditory, visual hallucinations. Patient reports delusions. Patient does not appear to be attending to internal stimuli. Patients attention and concentration are poor. Patient is oriented x0. Patients insight is poor. Patients judgment is poor. - Time Spent With Patient Time Spent With Patient: 15 minutes, met with patient individually. - Pending Discharge Pending Discharge Within 24 Hours: No Pending Discharge Within 48 Hours: No ICD10 Worksheet Patient Problems: Problems Problem Status Onset Psychosis Acute Schizoaffective disorder Chronic Acute psychosis Acute
[2018-12-08] MEDS: TRIAMCINOLONE 0.1% 15GM OINT TP SCH ×3 (10:49→20:05)
--- NOTE | 2018-12-08 13:10 | ASMTCMCOM ---
CM Note CM Note Notes: Clt appears to be more calm towards this CC than previous days. Client denying any feelings of anxiety, depression, S/I-H/I or AVH. Client noted, receiving over 8 hours of sleep last night. However, client is still paranoid lose association with reality at times, nonsensical while on the phone, etc. Date Signed: 12/08/2018 01:09 PM Electronically Signed By:Morris Acharya
[2018-12-08] MEDS: cloZAPine 25 MG TAB PO SCH (20:05)
[2018-12-09] MEDS ORDERED: cloZAPine 25 MG TAB PO SCH ×2 (06:19→09:00)
--- NOTE | 2018-12-09 08:13 | SOAPPROG ---
SOAP Progress Note Assessment/Plan: Assessment: Schizoaffective Disorder, Bipolar Type. No improvement noted. (see subjective/ objective note). Patient is not safe to discharge at this time as patient continues to exhibit signs of psychosis, and express psychosis symptoms. Patient requires continued inpatient care because of current psychosis, and requires inpatient level of care to stabilize in order to no longer be gravely disabled due to mental illness. Patient is unable to communicate her basic needs, unable to test reality, and continues to require prompting and direction from staff for ADLs. Patient exhibits inability to provide for herself, neglecting self-care, withdrawn from social interactions, currently shows inability to maintain any appropriate aspect of personal responsibility as an adult, patient becomes agitated and irritable easily and continues exhibited irritable behavior toward staff, refusing PRN medications for acute agitation, refused LYNDON medications Saturday, has not been consistently taking Clozaril, refusing, and slowing titration of medication. Support system has inability to manage functional impairment at lower level of care. Patient could benefit from continued inpatient hospitalization for crisis stabilization, safety, and medication evaluation. Plan: 1. Psychotropic medications: After reviewing options, risks, and benefits patient agrees to continue current medications and increase Clozaril to 150 mg po QD. No other medication changes at this time as more time is needed to determine ongoing tolerability and efficacy. Plan is to continue to observe patient for response and side effects from medications, and ongoing monitoring and evaluation. 2. Review with patient informed consent and recommendations for psychotropic medication treatment listed below 3. Labs: CBC 12/15/17 4. Therapy: continue milieu and group therapy 5. Further investigation including gathering information from patients relatives and review of past case records to inform treatment plan. 6. Safety/Wellness plan and follow-up outpatient appointments to be established prior to discharge. Next steps are for patient to meet with career technology teacher to plan a safe discharge plan and establish outpatient services for ongoing treatment. 7. Confer with inpatient treatment team regarding treatment plan. 8. Psychosocial stressors addressed through vocational case manager 9. Legal status: LTC / COM 10. Consider discharge next week if patient is in stable condition, safe, and has a safe discharge plan. PSYCHOTROPIC MEDICATION TREATMENT INFORMED CONSENT and RECOMMENDATIONS: Review nature of condition, diagnosis, and prognosis. Review nature and purpose of psychotropic medication treatment. Review type of psychotropic medications being ordered. Review risk and benefits of psychotropic medication treatment. Review probable length of time patient will need to take medications. Review risk and benefits of not undergoing psychotropic medication treatment. Review alternative treatments to psychotropic medications. Review psychotropic medications contraindications, drug-drug interactions, side effects, and importance of reporting any side effects to a psychiatric provider or nurse during inpatient hospitalization, and upon discharge to patients psychiatric outpatient provider, primary care provider, or other health child care provider. Review importance of asking a nurse, psychiatric provider, or primary care provider any questions or problems concerning the psychotropic medications. Verify patient understands the information that has been provided, and understands, accepts, and agrees to psychotropic medications. Review patients safety plan and importance of patient to report to staff while hospitalized if patient is ever a danger to self/others, or unable to care for self, and upon discharge, the importance for patient to contact [facility] or [facility], or go to the nearest emergency room, if patient is ever a danger to self/others, or unable to care for self. Recommend that upon discharge patient establish medication management treatment with a psychiatric provider, establishes routine therapy appointments, and follow-up with primary care provider. Verify patient understands and agrees to these recommendations. 12/09/18 08:12 Subjective: Following up with patient for evaluation of psychosis, suzi, and safety. Patient states, "I'm okay, the medications are okay." Patient reports no side effects from current medications, and agrees to continue current medications. Patient requests Clozaril to be dosed in the morning. Objective: Vital Signs Temp Pulse Resp BP Pulse Ox 36.5 C 128 H 16 130/77 H 97 11/28/18 10:52 11/29/18 06:00 11/29/18 06:00 11/29/18 06:00 11/29/18 06:00 Laboratory Results 12/08/18 06:20 NURSING REPORT: Consulted with nursing for update on patients progress in treatment. Nurses report patient is not engaged in treatment, does not attend groups, slept 8 hours; expresses the following psychiatric symptoms: anxious and irritable; exhibits the following psychiatric symptoms: unable to test reality, irritable, disorganized, tangential, loose associations, nonsensical; is eating all meals, requires continued prompting and direction from staff for ADLs, and is unable to communicate her basic needs; is agreeable to scheduled medications and taking as prescribed with no report of side effects, with no s/ s of EPS/akathisia, and denies SI/HI, denies A/V hallucinations, and reports delusions. Patient agreed to blood draw this AM. RN NOTE 12/08/17: Pt approached this senior grant writer sitting in [place] and repeatedly said "close the account." When asked to clarify what she meant, pt said "I wasn't talking to you, I was talking to the computer. If I'm looking at you, that means that you're under arrest." MD REPORT FROM WEEKEND: Refused Clozaril twice; switched back to HS to help w/ sleep. Haldol IM as backup for COM. Still very psychotic. MSE: The patient is a well-nourished female looking older than stated chronological age. Attire is appropriate dress is hospital garb. Grooming status is inappropriate and disheveled. Ambulation is independent. Gait is normal and coordinated. Posture is abnormal and tense. Eye contact is inappropriate and avoided. Motor activity is appropriate with purposeful, organized, coordinated movements; with no involuntary movements. Attitude is uncooperative, defensive and guarded at times. Patient appears distracted and does not relate well to this interviewer. Language production is spontaneous. Rate is pressured. Latency of response is shortened with irritable tone. Articulation is clear. Patient reports mood as okay with expansive and inappropriate affect. Patients thought process is disorganized, non-linear and illogical, with loose associations, nonsensical. Patient does not report suicidal/homicidal thoughts, ideas, or plans. Patient denies auditory, visual hallucinations. Patient reports delusions. Patient does not appear to be attending to internal stimuli. Patients attention and concentration are poor. Patient is oriented x0. Patients insight is poor. Patients judgment is poor. - Time Spent With Patient Time Spent With Patient: 15 minutes, met with patient individually. - Pending Discharge Pending Discharge Within 24 Hours: No Pending Discharge Within 48 Hours: No ICD10 Worksheet Patient Problems: Problems Problem Status Onset Psychosis Acute Schizoaffective disorder Chronic Acute psychosis Acute
[2018-12-09] MEDS: TRIAMCINOLONE 0.1% 15GM OINT TP SCH ×3 (09:09→23:10)
[2018-12-10] MEDS ORDERED: cloZAPine 25 MG TAB PO SCH (06:23)
--- NOTE | 2018-12-10 06:30 | SOAPPROG ---
SOAP Progress Note Assessment/Plan: Assessment: Schizoaffective Disorder, Bipolar Type. No improvement noted. (see subjective/ objective note). Patient is not safe to discharge at this time as patient continues to exhibit signs of psychosis, and express psychosis symptoms. Patient requires continued inpatient care because of current psychosis, and requires inpatient level of care to stabilize in order to no longer be gravely disabled due to mental illness. Patient is unable to communicate her basic needs, unable to test reality, and continues to require prompting and direction from staff for ADLs. Patient exhibits inability to provide for herself, neglecting self-care, withdrawn from social interactions, currently shows inability to maintain any appropriate aspect of personal responsibility as an adult, patient becomes agitated and irritable easily and continues exhibited irritable behavior toward staff. Support system has inability to manage functional impairment at lower level of care. Patient could benefit from continued inpatient hospitalization for crisis stabilization, safety, and medication evaluation. Plan: 1. Psychotropic medications: After reviewing options, risks, and benefits patient agrees to continue current medications and increase Clozaril to 200 mg po QD. No other medication changes at this time as more time is needed to determine ongoing tolerability and efficacy. Plan is to continue to observe patient for response and side effects from medications, and ongoing monitoring and evaluation. 2. Review with patient informed consent and recommendations for psychotropic medication treatment listed below 3. Labs: CBC and Clozapine level 12/15/17 4. Therapy: continue milieu and group therapy 5. Further investigation including gathering information from patients relatives and review of past case records to inform treatment plan. 6. Safety/Wellness plan and follow-up outpatient appointments to be established prior to discharge. Next steps are for patient to meet with healthcare network pricing consultant to plan a safe discharge plan and establish outpatient services for ongoing treatment. 7. Confer with inpatient treatment team regarding treatment plan. 8. Psychosocial stressors addressed through counseling case manager 9. Legal status: LTC / COM 10. Consider discharge next week if patient is in stable condition, safe, and has a safe discharge plan. PSYCHOTROPIC MEDICATION TREATMENT INFORMED CONSENT and RECOMMENDATIONS: Review nature of condition, diagnosis, and prognosis. Review nature and purpose of psychotropic medication treatment. Review type of psychotropic medications being ordered. Review risk and benefits of psychotropic medication treatment. Review probable length of time patient will need to take medications. Review risk and benefits of not undergoing psychotropic medication treatment. Review alternative treatments to psychotropic medications. Review psychotropic medications contraindications, drug-drug interactions, side effects, and importance of reporting any side effects to a psychiatric provider or nurse during inpatient hospitalization, and upon discharge to patients psychiatric outpatient provider, primary care provider, or other health animal caretaker supervisor. Review importance of asking a nurse, psychiatric provider, or primary care provider any questions or problems concerning the psychotropic medications. Verify patient understands the information that has been provided, and understands, accepts, and agrees to psychotropic medications. Review patients safety plan and importance of patient to report to staff while hospitalized if patient is ever a danger to self/others, or unable to care for self, and upon discharge, the importance for patient to contact [facility] or [facility], or go to the nearest emergency room, if patient is ever a danger to self/others, or unable to care for self. Recommend that upon discharge patient establish medication management treatment with a psychiatric provider, establishes routine therapy appointments, and follow-up with primary care provider. Verify patient understands and agrees to these recommendations. 12/10/18 06:29 Subjective: Following up with patient for evaluation of psychosis, suzi, and safety. Patient states, I"'m doing okay, just concerned about the phone restriction, I would like to call at least two people per shift." Patient reports no side effects from current medications, and agrees to continue current medications. Patient agrees to increase Clozaril to 200 mg po QD. Objective: Vital Signs Temp Pulse Resp BP Pulse Ox 36.5 C 128 H 16 130/77 H 97 11/28/18 10:52 11/29/18 06:00 11/29/18 06:00 11/29/18 06:00 11/29/18 06:00 Laboratory Results 12/08/18 06:20 NURSING REPORT: Consulted with nursing for update on patients progress in treatment. Nurses report patient is not engaged in treatment, does not attend groups, slept 30 minutes; expresses the following psychiatric symptoms: anxious and irritable; exhibits the following psychiatric symptoms: unable to test reality, irritable, disorganized, tangential, loose associations, nonsensical; is eating all meals, requires continued prompting and direction from staff for ADLs, and is unable to communicate her basic needs; is agreeable to scheduled medications and taking as prescribed with no report of side effects, with no s/ s of EPS/akathisia, and denies SI/HI, denies A/V hallucinations, and reports delusions. Patient agreed to blood draw this AM. 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 RN NOTE from 12/08/17: Pt approached this job specification writer sitting in [place] and repeatedly said "close the account." When asked to clarify what she meant, pt said "I wasn 't talking to you, I was talking to the computer. If I'm looking at you, that means that you're under arrest." MD REPORT FROM WEEKEND: Refused Clozaril twice; switched back to HS to help w/ sleep. Haldol IM as backup for COM. Still very psychotic. MSE: The patient is a well-nourished female looking older than stated chronological age. Attire is appropriate dress is hospital garb. Grooming status is inappropriate and disheveled. Ambulation is independent. Gait is normal and coordinated. Posture is abnormal and tense. Eye contact is inappropriate and avoided. Motor activity is appropriate with purposeful, organized, coordinated movements; with no involuntary movements. Attitude is uncooperative, defensive and guarded at times. Patient appears distracted and does not relate well to this interviewer. Language production is spontaneous. Rate is pressured. Latency of response is shortened with irritable tone. Articulation is clear. Patient reports mood as okay with expansive and inappropriate affect. Patients thought process is disorganized, non-linear and illogical, with loose associations, nonsensical. Patient does not report suicidal/homicidal thoughts, ideas, or plans. Patient denies auditory, visual hallucinations. Patient reports delusions. Patient does not appear to be attending to internal stimuli. Patients attention and concentration are poor. Patient is oriented x0. Patients insight is poor. Patients judgment is poor. - Time Spent With Patient Time Spent With Patient: 15 minutes, met with patient individually. - Pending Discharge Pending Discharge Within 24 Hours: No Pending Discharge Within 48 Hours: No ICD10 Worksheet Patient Problems: Problems Problem Status Onset Psychosis Acute Schizoaffective disorder Chronic Acute psychosis Acute
[2018-12-10] MEDS: TRIAMCINOLONE 0.1% 15GM OINT TP SCH ×3 (10:21→20:00)
[2018-12-11] MEDS ORDERED: cloZAPine 25 MG TAB PO SCH ×2 (06:26→11:15)
--- NOTE | 2018-12-11 06:39 | SOAPPROG ---
SOAP Progress Note Assessment/Plan: Assessment: Schizoaffective Disorder, Bipolar Type. No improvement noted. (see subjective/ objective note). Patient is not safe to discharge at this time as patient continues to exhibit signs of psychosis, and express psychosis symptoms. Patient requires continued inpatient care because of current psychosis, and requires inpatient level of care to stabilize in order to no longer be gravely disabled due to mental illness. Patient is unable to communicate her basic needs, unable to test reality, and continues to require prompting and direction from staff for ADLs. Patient exhibits inability to provide for herself, neglecting self-care, withdrawn from social interactions, currently shows inability to maintain any appropriate aspect of personal responsibility as an adult, patient becomes agitated and irritable easily and continues exhibited irritable behavior toward staff. Support system has inability to manage functional impairment at lower level of care. Patient could benefit from continued inpatient hospitalization for crisis stabilization, safety, and medication evaluation. Plan: 1. Psychotropic medications: After reviewing options, risks, and benefits patient agrees to continue current medications and increase Clozaril to 250 mg po QD. Consider increasing Clozaril to 300 mg po QD starting tomorrow, dose patient was on most recently on outpatient basis, with Clozaril level on . No other medication changes at this time as more time is needed to determine ongoing tolerability and efficacy. Plan is to continue to observe patient for response and side effects from medications, and ongoing monitoring and evaluation. 2. Review with patient informed consent and recommendations for psychotropic medication treatment listed below 3. Labs: CBC and Clozapine level 12/15/17 4. Therapy: continue milieu and group therapy 5. Further investigation including gathering information from patients relatives and review of past case records to inform treatment plan. 6. Safety/Wellness plan and follow-up outpatient appointments to be established prior to discharge. Next steps are for patient to meet with day care provider to plan a safe discharge plan and establish outpatient services for ongoing treatment. 7. Confer with inpatient treatment team regarding treatment plan. 8. Psychosocial stressors addressed through field case manager 9. Legal status: LTC / COM 10. Consider discharge next week if patient is in stable condition, safe, and has a safe discharge plan. PSYCHOTROPIC MEDICATION TREATMENT INFORMED CONSENT and RECOMMENDATIONS: Review nature of condition, diagnosis, and prognosis. Review nature and purpose of psychotropic medication treatment. Review type of psychotropic medications being ordered. Review risk and benefits of psychotropic medication treatment. Review probable length of time patient will need to take medications. Review risk and benefits of not undergoing psychotropic medication treatment. Review alternative treatments to psychotropic medications. Review psychotropic medications contraindications, drug-drug interactions, side effects, and importance of reporting any side effects to a psychiatric provider or nurse during inpatient hospitalization, and upon discharge to patients psychiatric outpatient provider, primary care provider, or other health account executive healthcare. Review importance of asking a nurse, psychiatric provider, or primary care provider any questions or problems concerning the psychotropic medications. Verify patient understands the information that has been provided, and understands, accepts, and agrees to psychotropic medications. Review patients safety plan and importance of patient to report to staff while hospitalized if patient is ever a danger to self/others, or unable to care for self, and upon discharge, the importance for patient to contact [facility] or [facility], or go to the nearest emergency room, if patient is ever a danger to self/others, or unable to care for self. Recommend that upon discharge patient establish medication management treatment with a psychiatric provider, establishes routine therapy appointments, and follow-up with primary care provider. Verify patient understands and agrees to these recommendations. 12/11/18 06:39 Subjective: Following up with patient for evaluation of psychosis, suzi, and safety. Patient states, "I need to have more numbers added to my phone restriction and be able to make more than two calls per shift." Patient reports no side effects from current medications, and agrees to continue current medications. Patient agrees to increase Clozaril to 250 mg po QD. Objective: Vital Signs Temp Pulse Resp BP Pulse Ox 36.5 C 128 H 16 130/77 H 97 11/28/18 10:52 11/29/18 06:00 11/29/18 06:00 11/29/18 06:00 11/29/18 06:00 Laboratory Results 12/08/18 06:20 NURSING REPORT: Consulted with nursing for update on patients progress in treatment. Nurses report patient is not engaged in treatment, does not attend groups; patient slept total of 3 hours, at 15-20 minute increments; expresses the following psychiatric symptoms: anxious and irritable; exhibits the following psychiatric symptoms: unable to test reality, irritable, disorganized , tangential, loose associations, nonsensical; is eating all meals, requires continued prompting and direction from staff for ADLs, and is unable to communicate her basic needs; is agreeable to scheduled medications and taking as prescribed with no report of side effects, with no s/s of EPS/akathisia, and denies SI/HI, denies A/V hallucinations, and reports delusions. MSE: The patient is a well-nourished female looking older than stated chronological age. Attire is appropriate dress is hospital garb. Grooming status is inappropriate and disheveled. Ambulation is independent. Gait is normal and coordinated. Posture is abnormal and tense. Eye contact is inappropriate and avoided. Motor activity is appropriate with purposeful, organized, coordinated movements; with no involuntary movements. Attitude is uncooperative, defensive and guarded at times. Patient appears distracted and does not relate well to this interviewer. Language production is spontaneous. Rate is pressured. Latency of response is shortened with irritable tone. Articulation is clear. Patient reports mood as okay with expansive and inappropriate affect. Patients thought process is disorganized, non-linear and illogical, with loose associations, nonsensical. Patient does not report suicidal/homicidal thoughts, ideas, or plans. Patient denies auditory, visual hallucinations. Patient reports delusions. Patient does not appear to be attending to internal stimuli. Patients attention and concentration are poor. Patient is oriented to person, place, and time. Patients insight is poor. Patients judgment is poor. - Time Spent With Patient Time Spent With Patient: 15 minutes, met with patient individually. - Pending Discharge Pending Discharge Within 24 Hours: No Pending Discharge Within 48 Hours: No ICD10 Worksheet Patient Problems: Problems Problem Status Onset Psychosis Acute Schizoaffective disorder Chronic Acute psychosis Acute
[2018-12-11] MEDS ORDERED: cloZAPine 100 MG TAB PO SCH (09:00)
[2018-12-11] MEDS: TRIAMCINOLONE 0.1% 15GM OINT TP SCH ×3 (10:32→20:14)
--- NOTE | 2018-12-12 06:16 | SOAPPROG ---
SOAP Progress Note Assessment/Plan: Assessment: Schizoaffective Disorder, Bipolar Type. No improvement noted. (see subjective/ objective note). Patient is not safe to discharge at this time as patient continues to exhibit signs of psychosis, and express psychosis symptoms. Patient requires continued inpatient care because of current psychosis, and requires inpatient level of care to stabilize in order to no longer be gravely disabled due to mental illness. Patient is unable to communicate her basic needs, unable to test reality, and continues to require prompting and direction from staff for ADLs. Patient exhibits inability to provide for herself, neglecting self-care, withdrawn from social interactions, currently shows inability to maintain any appropriate aspect of personal responsibility as an adult, patient becomes agitated and irritable easily and continues exhibited irritable behavior toward staff. Support system has inability to manage functional impairment at lower level of care. Patient could benefit from continued inpatient hospitalization for crisis stabilization, safety, and medication evaluation. Plan: 1. Psychotropic medications: After reviewing options, risks, and benefits patient agrees to continue current medications and increase Clozaril to 300 mg po QD. No other medication changes at this time as more time is needed to determine ongoing tolerability and efficacy. Plan is to continue to observe patient for response and side effects from medications, and ongoing monitoring and evaluation. 2. Review with patient informed consent and recommendations for psychotropic medication treatment listed below 3. Labs: CBC and Clozapine level 12/15/17 4. Therapy: continue milieu and group therapy 5. Further investigation including gathering information from patients relatives and review of past case records to inform treatment plan. 6. Safety/Wellness plan and follow-up outpatient appointments to be established prior to discharge. Next steps are for patient to meet with animal care attendant to plan a safe discharge plan and establish outpatient services for ongoing treatment. 7. Confer with inpatient treatment team regarding treatment plan. 8. Psychosocial stressors addressed through case folder 9. Legal status: LTC / COM 10. Consider discharge next week if patient is in stable condition, safe, and has a safe discharge plan. PSYCHOTROPIC MEDICATION TREATMENT INFORMED CONSENT and RECOMMENDATIONS: Review nature of condition, diagnosis, and prognosis. Review nature and purpose of psychotropic medication treatment. Review type of psychotropic medications being ordered. Review risk and benefits of psychotropic medication treatment. Review probable length of time patient will need to take medications. Review risk and benefits of not undergoing psychotropic medication treatment. Review alternative treatments to psychotropic medications. Review psychotropic medications contraindications, drug-drug interactions, side effects, and importance of reporting any side effects to a psychiatric provider or nurse during inpatient hospitalization, and upon discharge to patients psychiatric outpatient provider, primary care provider, or other health animal caretaker. Review importance of asking a nurse, psychiatric provider, or primary care provider any questions or problems concerning the psychotropic medications. Verify patient understands the information that has been provided, and understands, accepts, and agrees to psychotropic medications. Review patients safety plan and importance of patient to report to staff while hospitalized if patient is ever a danger to self/others, or unable to care for self, and upon discharge, the importance for patient to contact [facility] or [facility], or go to the nearest emergency room, if patient is ever a danger to self/others, or unable to care for self. Recommend that upon discharge patient establish medication management treatment with a psychiatric provider, establishes routine therapy appointments, and follow-up with primary care provider. Verify patient understands and agrees to these recommendations. 12/12/18 06:15 Subjective: Following up with patient for evaluation of psychosis, suzi, and safety. Patient states, "Yes, I need to speak to someone about calling my physician." Patient reports no side effects from current medications, and agrees to continue current medications. Patient agrees to increase Clozaril to 300 mg po QD. Objective: Vital Signs Temp Pulse Resp BP Pulse Ox 36.5 C 128 H 16 130/77 H 97 11/28/18 10:52 11/29/18 06:00 11/29/18 06:00 11/29/18 06:00 11/29/18 06:00 Laboratory Results 12/08/18 06:20 NURSING REPORT: Consulted with nursing for update on patients progress in treatment. Nurses report patient is not engaged in treatment, does not attend groups; patient slept total of 3 hours; expresses the following psychiatric symptoms: anxious and irritable; exhibits the following psychiatric symptoms: unable to test reality, irritable, disorganized, tangential, loose associations , nonsensical; is eating all meals, requires continued prompting and direction from staff for ADLs, and is unable to communicate her basic needs; is agreeable to scheduled medications and taking as prescribed with no report of side effects , with no s/s of EPS/akathisia, and denies SI/HI, denies A/V hallucinations, and reports delusions. MSE: The patient is a well-nourished female looking older than stated chronological age. Attire is appropriate dress is hospital garb. Grooming status is inappropriate and disheveled. Ambulation is independent. Gait is normal and coordinated. Posture is abnormal and tense. Eye contact is inappropriate and avoided. Motor activity is appropriate with purposeful, organized, coordinated movements; with no involuntary movements. Attitude is uncooperative, defensive and guarded at times. Patient appears distracted and does not relate well to this interviewer. Language production is spontaneous. Rate is pressured. Latency of response is shortened with irritable tone. Articulation is clear. Patient reports mood as okay with expansive and inappropriate affect. Patients thought process is disorganized, non-linear and illogical, with loose associations, nonsensical. Patient does not report suicidal/homicidal thoughts, ideas, or plans. Patient denies auditory, visual hallucinations. Patient reports delusions. Patient does not appear to be attending to internal stimuli. Patients attention and concentration are poor. Patient is oriented to person, place, and time. Patients insight is poor. Patients judgment is poor. - Time Spent With Patient Time Spent With Patient: 15 minutes, met with patient individually. - Pending Discharge Pending Discharge Within 24 Hours: No Pending Discharge Within 48 Hours: No ICD10 Worksheet Patient Problems: Problems Problem Status Onset Psychosis Acute Schizoaffective disorder Chronic Acute psychosis Acute
[2018-12-12] MEDS: cloZAPine 25 MG TAB PO SCH ×2 (09:22→11:02)
[2018-12-12] MEDS: TRIAMCINOLONE 0.1% 15GM OINT TP SCH (09:25)
[2018-12-13] MEDS: cloZAPine 25 MG TAB PO SCH (08:32)
--- NOTE | 2018-12-13 14:47 | ASMTCMCOM ---
CM Note CM Note Notes: Pt. reports "doing alright". Pt. stated she was "knocked out" last night and slept well. Pt. stated she is "having trouble with the air in here". At this point, pt noticed CC taking notes and stated "I don't want notes taken down. I'm done" and refused to speak with CC. Pt. presents as alert, disorganized, less demanding, good eye contact and not cooperative. Staff report pt. sleeping zero hours last night and being medication compliant. Date Signed: 12/13/2018 02:46 PM Electronically Signed By:Codie Herrera
--- NOTE | 2018-12-13 17:41 | SOAPPROG ---
SOAP Progress Note Assessment/Plan: Assessment: 43 yo woman with h/o schizoaffective disorder who had [address] was admitted to N on M1 hold d/t grave disability after stopping her psych meds and exhibiting sxs of psychosis. Per Lemuel Mendez's note: Schizoaffective Disorder, Bipolar Type. No improvement noted. (see subjective/ objective note). Patient is not safe to discharge at this time as patient continues to exhibit signs of psychosis, and express psychosis symptoms. Patient requires continued inpatient care because of current psychosis, and requires inpatient level of care to stabilize in order to no longer be gravely disabled due to mental illness. Patient is unable to communicate her basic needs, unable to test reality, and continues to require prompting and direction from staff for ADLs. Patient exhibits inability to provide for herself, neglecting self-care, withdrawn from social interactions, currently shows inability to maintain any appropriate aspect of personal responsibility as an adult, patient becomes agitated and irritable easily and continues exhibited irritable behavior toward staff. Support system has inability to manage functional impairment at lower level of care. Patient could benefit from continued inpatient hospitalization for crisis stabilization, safety, and medication evaluation. Plan: 1. Psychotropic medications: After reviewing options, risks, and benefits patient agrees to continue current medications and increase Clozaril to 300 mg po QD. No other medication changes at this time as more time is needed to determine ongoing tolerability and efficacy. Plan is to continue to observe patient for response and side effects from medications, and ongoing monitoring and evaluation. PLAN: 12/13/18 17:37 1. Patient seems to be tolerating increased dose of Clozaril. Her weekly CBC is scheduled for Saturday. 2. 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 3. Patient still paranoid about people taking notes while talking to her. 4. Still insists she be addressed as "Dr. Clayton." 5. Has been compliant with COM. 6. LTC Subjective: Patient seems minimally improved. 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 She still makes random, nonsensical statements out loud to no one in particular, such as "Code 5, 7, 9...Carla." Objective: Vital Signs Temp Pulse Resp BP Pulse Ox 36.5 C 128 H 16 130/77 H 97 11/28/18 10:52 11/29/18 06:00 11/29/18 06:00 11/29/18 06:00 11/29/18 06:00 Laboratory Results 12/08/18 06:20 MSE: Affect: Less irritable Mood: "OK" TP: Word salad, loose TC: Denies any SI/HI Insight/Judgment: Poor - Time Spent With Patient Time Spent With Patient: 15" - Pending Discharge Pending Discharge Within 24 Hours: No Pending Discharge Within 48 Hours: No ICD10 Worksheet Patient Problems: Problems Problem Status Onset Psychosis Acute Schizoaffective disorder Chronic Acute psychosis Acute
[2018-12-14] MEDS: cloZAPine 25 MG TAB PO SCH (10:07)
--- NOTE | 2018-12-14 16:35 | SOAPPROG ---
SOAP Progress Note Assessment/Plan: Assessment: 43 yo woman with h/o schizoaffective disorder who [address] was admitted to [facility] on M1 hold d/t grave disability after stopping her psych meds and exhibiting sxs of psychosis. Per Lemuel Mendez's note: Schizoaffective Disorder, Bipolar Type. No improvement noted. (see subjective/ objective note). Patient is not safe to discharge at this time as patient continues to exhibit signs of psychosis, and express psychosis symptoms. Patient requires continued inpatient care because of current psychosis, and requires inpatient level of care to stabilize in order to no longer be gravely disabled due to mental illness. Patient is unable to communicate her basic needs, unable to test reality, and continues to require prompting and direction from staff for ADLs. Patient exhibits inability to provide for herself, neglecting self-care, withdrawn from social interactions, currently shows inability to maintain any appropriate aspect of personal responsibility as an adult, patient becomes agitated and irritable easily and continues exhibited irritable behavior toward staff. Support system has inability to manage functional impairment at lower level of care. Patient could benefit from continued inpatient hospitalization for crisis stabilization, safety, and medication evaluation. Plan: 1. Psychotropic medications: After reviewing options, risks, and benefits patient agrees to continue current medications and increase Clozaril to 300 mg po QD. No other medication changes at this time as more time is needed to determine ongoing tolerability and efficacy. Plan is to continue to observe patient for response and side effects from medications, and ongoing monitoring and evaluation. PLAN: 12/13/18 17:37 1. Patient seems to be tolerating increased dose of Clozaril. Her weekly CBC is scheduled for Saturday. 2. 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 3. Patient still paranoid about people taking notes while talking to her. 4. Still insists she be addressed as "Dr. Clayton." 5. Has been compliant with COM. 6. LTC PLAN: 12/14/18 16:31 1. CBC tomorrow 2. Slept significantly more hours than any other time during this admission. Staff report total of 7.5hrs (3.5 hrs overnight + 4 hrs this AM). 3. Patient makes a point of requesting MD not raise Clozaril above 300mg, which was her recent OP dose. 4. Patient using her phone privilege to call mapping analyst and patient advocate to complain about her treatment. 5. [facility] Subjective: Patient pacing in hallways. For lunch, patient stood in hallway and looked like she was praying over her food. She would raise her plate above her head and mumble something MD couldn't hear. Then she would eat her food while standing up. Patient slept 7.5 hrs which is the most during this admission. Patient still repeats words and phrases and still responding to internal stimuli. Objective: Vital Signs Temp Pulse Resp BP Pulse Ox 36.5 C 128 H 16 130/77 H 97 11/28/18 10:52 11/29/18 06:00 11/29/18 06:00 11/29/18 06:00 11/29/18 06:00 Laboratory Results 12/08/18 06:20 MSE: Affect: Blunted Mood: No response TP: Disorganized, word salad TC: Does not report any SI/HI Perception: Continues to demonstrate RIS Insight/Judgment : Poor - Time Spent With Patient Time Spent With Patient: 15" - Pending Discharge Pending Discharge Within 24 Hours: No Pending Discharge Within 48 Hours: No ICD10 Worksheet Patient Problems: Problems Problem Status Onset Psychosis Acute Schizoaffective disorder Chronic Acute psychosis Acute
--- NOTE | 2018-12-15 06:26 | SOAPPROG ---
SOAP Progress Note Assessment/Plan: Assessment: Schizoaffective Disorder, Bipolar Type. Slight improvement noted, notably improved sleep (see subjective/objective note). Patient is not safe to discharge at this time as patient continues to exhibit signs of psychosis, and express psychosis symptoms. Patient requires continued inpatient care because of current psychosis, and requires inpatient level of care to stabilize in order to no longer be gravely disabled due to mental illness. Patient is unable to communicate her basic needs, unable to test reality, and continues to require prompting and direction from staff for ADLs. Patient exhibits inability to provide for herself, neglecting self-care, withdrawn from social interactions, currently shows inability to maintain any appropriate aspect of personal responsibility as an adult, patient becomes agitated and irritable easily and continues exhibited irritable behavior toward staff. Support system has inability to manage functional impairment at lower level of care. Patient could benefit from continued inpatient hospitalization for crisis stabilization , safety, and medication evaluation. Plan: 1. Psychotropic medications: After reviewing options, risks, and benefits patient agrees to continue current medications. No other medication changes at this time as more time is needed to determine ongoing tolerability and efficacy. Plan is to continue to observe patient for response and side effects from medications, and ongoing monitoring and evaluation. 2. Review with patient informed consent and recommendations for psychotropic medication treatment listed below 3. Labs: CBC and Clozapine level today 4. Therapy: continue milieu and group therapy 5. Further investigation including gathering information from patients relatives and review of past case records to inform treatment plan. 6. Safety/Wellness plan and follow-up outpatient appointments to be established prior to discharge. Next steps are for patient to meet with home health care social worker to plan a safe discharge plan and establish outpatient services for ongoing treatment. 7. Confer with inpatient treatment team regarding treatment plan. 8. Psychosocial stressors addressed through case advocate 9. Legal status: [facility] 10. Consider discharge next week if patient is in stable condition, safe, and has a safe discharge plan. PSYCHOTROPIC MEDICATION TREATMENT INFORMED CONSENT and RECOMMENDATIONS: Review nature of condition, diagnosis, and prognosis. Review nature and purpose of psychotropic medication treatment. Review type of psychotropic medications being ordered. Review risk and benefits of psychotropic medication treatment. Review probable length of time patient will need to take medications. Review risk and benefits of not undergoing psychotropic medication treatment. Review alternative treatments to psychotropic medications. Review psychotropic medications contraindications, drug-drug interactions, side effects, and importance of reporting any side effects to a psychiatric provider or nurse during inpatient hospitalization, and upon discharge to patients psychiatric outpatient provider, primary care provider, or other health caregiver assisted living. Review importance of asking a nurse, psychiatric provider, or primary care provider any questions or problems concerning the psychotropic medications. Verify patient understands the information that has been provided, and understands, accepts, and agrees to psychotropic medications. Review patients safety plan and importance of patient to report to staff while hospitalized if patient is ever a danger to self/others, or unable to care for self, and upon discharge, the importance for patient to contact [facility] or [facility], or go to the nearest emergency room, if patient is ever a danger to self/others, or unable to care for self. Recommend that upon discharge patient establish medication management treatment with a psychiatric provider, establishes routine therapy appointments, and follow-up with primary care provider. Verify patient understands and agrees to these recommendations. 12/15/18 06:25 Subjective: Following up with patient for evaluation of psychosis, suzi, and safety. Patient states, "No, that is incorrect, my name is Dr. Byrne. I am fine, and I will speak to you later, thank you." Patient reports no side effects from current medications, and agrees to continue current medications. Objective: Vital Signs Temp Pulse Resp BP Pulse Ox 36.5 C 128 H 16 130/77 H 97 11/28/18 10:52 11/29/18 06:00 11/29/18 06:00 11/29/18 06:00 11/29/18 06:00 Laboratory Results 12/08/18 06:20 NURSING REPORT: Consulted with nursing for update on patients progress in treatment. Nurses report patient is not engaged in treatment, does not attend groups; patient slept total of 6 hours; expresses the following psychiatric symptoms: anxious and irritable; exhibits the following psychiatric symptoms: unable to test reality, irritable, disorganized, tangential, loose associations , nonsensical; is eating all meals, requires continued prompting and direction from staff for ADLs, and is unable to communicate her basic needs; is agreeable to scheduled medications and taking as prescribed with no report of side effects , with no s/s of EPS/akathisia, and denies SI/HI, denies A/V hallucinations, and reports delusions. MD REPORT FROM WEEKEND: some slight improvement. Given how decompensated she was at admission, may need more time to see full benefit of Clozaril. MSE: The patient is a well-nourished female looking older than stated chronological age. Attire is appropriate dress is hospital garb. Grooming status is inappropriate and disheveled. Ambulation is independent. Gait is normal and coordinated. Posture is normal. Eye contact is inappropriate and staring. Motor activity is appropriate with purposeful, organized, coordinated movements; with no involuntary movements. Attitude is uncooperative, defensive and guarded at times. Patient appears attentive and relates well to this interviewer. Language production is spontaneous. Rate is pressured. Latency of response is shortened with irritable tone. Articulation is clear. Patient reports mood as okay with expansive and inappropriate affect. Patients thought process is disorganized, non-linear and illogical, with loose associations, nonsensical. Patient does not report suicidal/homicidal thoughts, ideas, or plans. Patient denies auditory, visual hallucinations. Patient reports delusions. Patient does not appear to be attending to internal stimuli. Patients attention and concentration are poor. Patient is oriented to person, place, and time. Patients insight is poor. Patients judgment is poor. - Time Spent With Patient Time Spent With Patient: 15 minutes, met with patient individually. - Pending Discharge Pending Discharge Within 24 Hours: No Pending Discharge Within 48 Hours: No ICD10 Worksheet Patient Problems: Problems Problem Status Onset Psychosis Acute Schizoaffective disorder Chronic Acute psychosis Acute
[2018-12-15 08:18] LABS: PLATELET COUNT 216 10^3/uL (150-400)
[2018-12-15] MEDS: cloZAPine 25 MG TAB PO SCH (10:51)
--- NOTE | 2018-12-15 11:49 | ASMTCMCOM ---
CM Note CM Note Notes: Client was observed remaining calmer on the unit than previous days. Overall client is receiving more hours of sleep (10 +) noted. Still waiting on follow up appts from [facility].* Date Signed: 12/15/2018 11:49 AM Electronically Signed By:Morris Acharya
--- NOTE | 2018-12-16 08:13 | SOAPPROG ---
SOAP Progress Note Assessment/Plan: Assessment: Schizoaffective Disorder, Bipolar Type. Slight improvement noted, notably improved sleep (see subjective/objective note). Patient is not safe to discharge at this time as patient continues to exhibit signs of psychosis, and express psychosis symptoms. Patient requires continued inpatient care because of current psychosis, and requires inpatient level of care to stabilize in order to no longer be gravely disabled due to mental illness. Patient is unable to communicate her basic needs, unable to test reality, and continues to require prompting and direction from staff for ADLs. Patient exhibits inability to provide for herself, neglecting self-care, withdrawn from social interactions, currently shows inability to maintain any appropriate aspect of personal responsibility as an adult, patient becomes agitated and irritable easily and continues exhibited irritable behavior toward staff. Support system has inability to manage functional impairment at lower level of care. Patient could benefit from continued inpatient hospitalization for crisis stabilization , safety, and medication evaluation. Plan: 1. Psychotropic medications: After reviewing options, risks, and benefits patient agrees to continue current medications. No medication changes at this time as more time is needed to determine ongoing tolerability and efficacy. Plan is to continue to observe patient for response and side effects from medications, and ongoing monitoring and evaluation. 2. Review with patient informed consent and recommendations for psychotropic medication treatment listed below 3. Labs: CBC and Clozapine level today 4. Therapy: continue milieu and group therapy 5. Further investigation including gathering information from patients relatives and review of past case records to inform treatment plan. 6. Safety/Wellness plan and follow-up outpatient appointments to be established prior to discharge. Next steps are for patient to meet with youth care specialist to plan a safe discharge plan and establish outpatient services for ongoing treatment. 7. Confer with inpatient treatment team regarding treatment plan. 8. Psychosocial stressors addressed through case work aide 9. Legal status: LT / [facility] 10. Consider discharge this week if patient is in stable condition, safe, and has a safe discharge plan. PSYCHOTROPIC MEDICATION TREATMENT INFORMED CONSENT and RECOMMENDATIONS: Review nature of condition, diagnosis, and prognosis. Review nature and purpose of psychotropic medication treatment. Review type of psychotropic medications being ordered. Review risk and benefits of psychotropic medication treatment. Review probable length of time patient will need to take medications. Review risk and benefits of not undergoing psychotropic medication treatment. Review alternative treatments to psychotropic medications. Review psychotropic medications contraindications, drug-drug interactions, side effects, and importance of reporting any side effects to a psychiatric provider or nurse during inpatient hospitalization, and upon discharge to patients psychiatric outpatient provider, primary care provider, or other health childcare center director. Review importance of asking a nurse, psychiatric provider, or primary care provider any questions or problems concerning the psychotropic medications. Verify patient understands the information that has been provided, and understands, accepts, and agrees to psychotropic medications. Review patients safety plan and importance of patient to report to staff while hospitalized if patient is ever a danger to self/others, or unable to care for self, and upon discharge, the importance for patient to contact [facility] or [facility], or go to the nearest emergency room, if patient is ever a danger to self/others, or unable to care for self. Recommend that upon discharge patient establish medication management treatment with a psychiatric provider, establishes routine therapy appointments, and follow-up with primary care provider. Verify patient understands and agrees to these recommendations. 12/16/18 08:11 Subjective: Following up with patient for evaluation of psychosis, suzi, and safety. Patient states, "No it's Dr. Byrne. Perhaps you don't even know me? I want to call my physician about my pain. I live with a lot of pain and that is why I am taking Clozapine, for the pain." Patient reports no side effects from current medications, and agrees to continue current medications. Objective: Vital Signs Temp Pulse Resp BP Pulse Ox 36.5 C 128 H 16 130/77 H 97 11/28/18 10:52 11/29/18 06:00 11/29/18 06:00 11/29/18 06:00 11/29/18 06:00 Laboratory Results 12/15/18 06:00 NURSING REPORT: Consulted with nursing for update on patients progress in treatment. Nurses report patient is not engaged in treatment, does not attend groups; patient slept total of 6 hours; expresses the following psychiatric symptoms: anxious and irritable; exhibits the following psychiatric symptoms: unable to test reality, irritable, disorganized, tangential, loose associations , nonsensical, continues to refer to herself as a doctor and corrects staff when called by her first name; is eating all meals, requires continued prompting and direction from staff for ADLs, and is unable to communicate her basic needs; is agreeable to scheduled medications and taking as prescribed with no report of side effects, with no s/s of EPS/akathisia, and denies SI/HI, denies A/V hallucinations, and reports delusions. MD REPORT FROM WEEKEND: some slight improvement. Given how decompensated she was at admission, may need more time to see full benefit of Clozaril. TREATMENT TEAM: This MANUFACTURING LEAD to discuss those on tx team that are familiar with patient if she is at her baseline and ready for discharge. Update after treatment team. MSE: The patient is a well-nourished female looking older than stated chronological age. Attire is appropriate dress is hospital garb. Grooming status is inappropriate and disheveled. Ambulation is independent. Gait is normal and coordinated. Posture is normal. Eye contact is inappropriate and staring. Motor activity is appropriate with purposeful, organized, coordinated movements; with no involuntary movements. Attitude is uncooperative, defensive and guarded at times. Patient appears attentive and relates well to this interviewer. Language production is spontaneous. Rate is pressured. Latency of response is shortened with irritable tone. Articulation is clear. Patient reports mood as okay with expansive and inappropriate affect. Patients thought process is disorganized, non-linear and illogical, with loose associations, nonsensical. Patient does not report suicidal/homicidal thoughts, ideas, or plans. Patient denies auditory, visual hallucinations. Patient reports delusions. Patient does not appear to be attending to internal stimuli. Patients attention and concentration are poor. Patient is oriented to person, place, and time. Patients insight is poor. Patients judgment is poor. - Time Spent With Patient Time Spent With Patient: 15 minutes, met with patient individually. - Pending Discharge Pending Discharge Within 24 Hours: No Pending Discharge Within 48 Hours: No ICD10 Worksheet Patient Problems: Problems Problem Status Onset Psychosis Acute Schizoaffective disorder Chronic Acute psychosis Acute
[2018-12-16] MEDS: cloZAPine 25 MG TAB PO SCH (10:36)
[2018-12-17] MEDS: cloZAPine 25 MG TAB PO SCH ×2 (08:34→11:00)
--- NOTE | 2018-12-17 12:02 | BDS ---
REASON FOR ADMISSION: From the ED note dated 11/27/2018, patient presented to the emergency department on an M1 hold. Patient has a history of schizoaffective disorder and reportedly had been off her regular medications. Patient was found psychotic in the [employer] parking lot. In the emergency room, patient was quite disorganized, psychotic, and unable to provide any significant history. Patient is an open client at [facility]. Patient was admitted involuntarily on an M1 hold due to being gravely disabled due to mental illness. Patient was admitted for safety, crisis stabilization, and medication evaluation. ADMITTING DIAGNOSIS: 1. Schizoaffective disorder. 2. Cannabis Use Disorder, Severe. PHYSICAL EXAM: Patient was seen on 11/28/2018, for Internal Medicine consultation for medical clearance for inpatient psychiatric hospitalization and treatment. Patient was medically cleared for inpatient psychiatric hospitalization and treatment. For further details, please refer to consultation note dated 11/28/2018. ADMISSION LABORATORY DATA: 1. CBC within normal limits, except neutrophils were elevated at 78.4, lymphocytes were low at 9.9, eosinophils were low at 0.0, absolute lymphocytes were low at 0.62, absolute eosinophils were low at 0.00. 2. VBG: Lactic acid 1.3. 3. BMP within normal limits, except chloride was elevated at 115, carbon dioxide was low at 20, BUN was elevated at 48, glucose was elevated at 110. 4. Hemoglobin A1c within normal limits at 5.6. 5. Liver function within normal limits, except conjugated bilirubin was elevated at 0.7, AST elevated at 168, ALT elevated at 122, total protein was low at 6.0. 6. Lipid panel within normal limits, except triglycerides were elevated at 191 , cholesterol was low at 115, LDL cholesterol calculated was low at 42, VLDL cholesterol was elevated at 38, non-HDL cholesterol was low at 80. HDL cholesterol was low at 35. 7. Lipase within normal limits at 112. 8. Vitamin B12 within normal limits at 283. 9. TSH within normal limits at 0.546. 10. Toxicology screen within normal limits, except THC non-negative, negative for ethyl alcohol and negative for all other substances screened. 11. Clozapine, clozapine and norclozapine, and norclozapine are currently pending and this level was drawn on 12/15/2018. MAJOR PROCEDURES/TESTS: None. HOSPITAL COURSE: The most prominent symptoms and behaviors while the patient was here were delusions. Patient was not sleeping. Patient was irritable, agitated, hyper-talkative, tangential, nonlinear, illogical, and disorganized. Treatment modalities utilized were milieu and group therapy. Clozapine was started and titrated to the patient's most recent outpatient dose of 300 mg p.o. daily, was tolerated with no report of side effects, and with good response. The patient has improved considerably with no signs of psychiatric symptoms and no psychiatric symptoms expressed at time of discharge. Patient reports she has improved since admission, states to be in stable condition, feels safe to discharge, and she contracts for safety. Patient's response to treatment was good. There were no adverse or unexpected results of treatment. The patient was safe throughout her stay, active in treatment, engaged in groups , and was appropriate with staff and other patients. Patient met with the treatment team prior to discharge to assess readiness to discharge and review discharge plan. The treatment team consensus is the patient is in stable condition, has a safe discharge plan, and is ready to discharge today. CONDITION ON DISCHARGE: Patient is in stable condition and is no longer a danger to herself or others and is not gravely disabled due to a mental illness. Patient is no longer in need of inpatient level of care and can safely and effectively be treated within the community. The patient's level of risk at time of discharge is low. MENTAL STATUS EXAM: Patient is a well-nourished female looking stated chronological age. Attire is appropriate. Dress is casual, neat, clean, and kept. Grooming status is appropriate. Ambulation is independent. Gait is normal and coordinated. Posture is normal and relaxed. Eye contact is appropriate and adequate. Motor activity is appropriate with purposeful, organized, coordinated movements with no involuntary movements noted. Attitude is cooperative and friendly. Patient appears attentive and relates well to this interviewer. Language production is spontaneous. Rate is normal. Latency of response is adequate with variable tone and appropriate volume. Articulation is clear. Patient reports mood as "okay" with adequately ranged and appropriate affect. Patient's thought process is linear and logical with no loose associations, tangential thought, thought blocking concrete thinking, or any other signs of formal thought disorder. Patient does not report suicidal , homicidal thoughts, ideas, or plans. Patient denies auditory or visual hallucinations. Patient reports delusions. Patient continues to report fixed delusion, wanting to be referred to as a doctor. Patient is oriented to person , place, time. Patient's attention and concentration are fair. Patient's insight and judgment are fair. There is no evidence of gross cognitive dysfunction at any point during the discharge interview, and no evidence of apparent dysfunction in recent or remote memory noted. DISCHARGE DIAGNOSES: 1. Schizoaffective disorder. 2. Cannabis Use Disorder, Severe. CURRENT MEDICATIONS: After reviewing options, risks, and benefits with the patient, patient agrees to continue clozapine 300 mg p.o. daily. Patient has appointment with Dr. Carmona at [facility] today, and prescriptions will be provided at that time. DISPOSITION: Patient left hospital independently and voluntarily with the housekeeper caregiver who is walking the patient to her outpatient appointment with Dr. Carmona at [facility] today at 1:45 p.m. FOLLOWUP: billing coordinator reports the appropriate outpatient follow-up services have been established and outpatient appointments have been scheduled. The patient received written instructions with times and dates of outpatient follow-up appointments. The following follow-up recommendations were provided to the patient at discharge: Continue psychotropic medications as prescribed and attend appointments as scheduled. Report any side effects to a psychiatric outpatient provider, a primary care provider, or other health reservoir caretaker. Address any questions or problems concerning the psychotropic medications with a psychiatric outpatient provider, a primary care provider, or other health reservoir caretaker. Contact [facility] or [facility], or go to the nearest emergency room, if you are ever a danger to yourself/others, or unable to care for yourself. As soon as possible, establish a routine medication management treatment with a psychiatric provider, establish routine therapy appointments, and follow-up with a primary care provider. SUBSTANCE ABUSE BRIEF INTERVENTION: Brief intervention regarding the risks of cannabis abuse is provided to patient with goal to reduce the risk of harm that could result from the continued use of cannabis, with the general aim to investigate the problem, raise awareness of problem, develop a solution with the patient, recommend a specific change or activity, and motivate the patient toward change. Assess substance abuse behavior and give supportive advice about harm reduction, recommend a reduction in hazardous/at-risk consumption patterns, and facilitate referrals for additional specialized treatment with housekeeper caregiver. Intermediate goal is for the patient to quit and attend outpatient treatment. Intervention focus on intermediate goals to allow for more immediate success in the treatment process to keep the patient motivated. Review following with patient: Cannabis use risks: Short-term use: impaired short-term memory, impaired motor coordination, altered judgement, in high doses paranoia and psychosis. Long-term use addiction, diminished life satisfaction and achievement, symptoms of chronic bronchitis, and increased risk of chronic psychosis disorders if predisposition to such disorders. In withdrawal anger, aggression irritability, anxiety and nervousness, decreased appetite or weight loss, restlessness, and sleep difficulties with strange dreams. OUTPATIENT SUBSTANCE ABUSE TREATMENT: Patient referred to outpatient provider and treatment for continued treatment related to substance abuse. LEGAL COURSE: Patient was admitted on an M1 hold for inpatient psychiatric hospitalization. Patient is also on a long-term certification and court- ordered medications from [facility]. ATTITUDE AT TIME OF DISCHARGE: The patients attitude was positive at time of discharge, and patient reports looking forward to discharging today. The patient reports she feels safe to discharge, is no longer a danger to herself or others, is in stable condition, and contracts for safety. Patient states she will continue medications as prescribed, and establish medication management treatment with an outpatient provider after discharge. Patient reports she understands the information that has been provided to her, and she understands, accepts, and agrees to psychotropic medications. Patient describes internal protective factors as the coping skills she has learned while hospitalized here, and she plans to continue to practice these coping skills after discharge. LABORATORY/STUDIES: At time of discharge the following labs are pendin. Clozapine. 2. Clozapine and norclozapine. 3. Norclozapine. This MARINE PIPEFITTER HELPER will contact the patient's outpatient provider at [facility] when these labs are posted to provide results. ADVANCE DIRECTIVES: There were no advance directives on file, and the patient was full code during this hospitalization. The following psychotropic medication treatment informed consent and recommendations were provided to the patient at time of discharge. Patient reports she understands, accepts, and agrees to the information that has been provided. PSYCHOTROPIC MEDICATION TREATMENT INFORMED CONSENT and RECOMMENDATIONS: Review nature of condition, diagnosis, and prognosis. Review nature and purpose of psychotropic medication treatment. Review type of psychotropic medications being prescribed. Review risk and benefits of psychotropic medication treatment. Review probable length of time will need to take medications. Review risk and benefits of not undergoing psychotropic medication treatment. Review alternative treatments to psychotropic medications. Review psychotropic medications contraindications, side effects, and importance of reporting any side effects to a psychiatric provider, primary care provider, or other health reservoir caretaker. Review importance of her asking a psychiatric provider or primary care provider any questions or problems concerning the psychotropic medications. Review importance of reporting to a psychiatric provider, primary care provider, or other health reservoir caretaker if she plans to or becomes . Review safety plan and the importance to contact [facility] or [facility] , or go to the nearest emergency room, if ever a danger to yourself/others, or unable to care for yourself. Recommend upon discharge to establish routine medication management treatment with a psychiatric provider, establish routine therapy appointments, and follow-up with a primary care provider. Verify patient understands, accepts, and agrees to the information that has been provided. /[id number]/MODL MTDD
--- NOTE | 2018-12-17 12:13 | ASMTBHDC ---
Notes Note: Notes: Client's follow up includes: Follow up with: Power Hood, PCP [facility] [address], [facility] Next Appt: December 17 @ 14:00. Please arrive at 13:45. (YOU NEED TO meet with someone today after she sees Dr. Carmona, before she goes home, to update her care plan). Next Therapy Appt: December 19 (12/19/18) w/clinician Renetta Molina for 9 a.m., since shes coming in any way for her monitored meds. All at [address]. Date Signed: 12/17/2018 12:12 PM Electronically Signed By:Morris Acharya
== END 2018-12-17 13:30 | disposition home or self-care (01) | DRG 885 ==
LOC: EDUNIT# → BBEH 11-28 09:45
PROVIDERS: ADMIT Registered Nurse; ATTEND Registered Nurse
DX: F25.0 Schizoaffective disorder, bipolar type (principal); E66.9 Obesity, unspecified; F17.200 Nicotine dependence, unspecified, uncomplicated; E88.89 Other specified metabolic disorders; E86.0 Dehydration; G62.9 Polyneuropathy, unspecified
CPT/HCPCS: 80159-90; 80305; 82607-90; 96374; G0480; J1630; J2060; Q9967

== ENCOUNTER 2019-01-01 11:09 | Inpatient (IN) | payer MEDICAID, OTHER ==
[2019-01-01] MEDS ORDERED: LORazepam 2 MG/ML INJ IM ONE ×2 (11:10→11:20)
[2019-01-01] MEDS ORDERED: HALOPERIDOL LACT 5 MG/ML INJ ONE (11:11)
[2019-01-01] MEDS ORDERED: LORazepam 2 MG/ML INJ ONE (11:11)
--- NOTE | 2019-01-01 11:15 | EDPHY ---
H & P Time Seen by Provider: 01/01/19 11:14 HPI/ROS: CHIEF COMPLAINT: Agitation HISTORY OF PRESENT ILLNESS: 43-year-old female history of schizoaffective disorder arrives via EMS accompanied by police on an M1 hold for aggressive, agitated behavior, through coffee on k 9 police officer as well as her mother. Given 5 mg IM Haldol and route via EMS. Patient denies suicidal or homicidal ideation. PRIMARY CARE PROVIDER: REVIEW OF SYSTEMS: 10 systems reviewed and negative with the exception of the elements mentioned in the history of present illness PAST MEDICAL & SURGICAL HISTORY: Schizoaffective disorder SOCIAL HISTORY:History of cannabis use disorder. Patient denies acute usage PHYSICAL EXAM (Prior to examination, patient consented to physical exam, hands were washed and my usual and customary physical exam procedures followed) 1) GENERAL: obese, agitated, restrained in 4 point restraints, yelling 2) HEAD: Normocephalic, atraumatic 3) HEENT: Pupils equal, round, reactive to light bilaterally. Sclera anicteric. 4) NECK: Full range of motion, no meningeal signs. 5) LUNGS: Clear auscultation bilaterally, no wheezes, no rhonchi, no retractions. 6) HEART: Regular rate and rhythm, no murmur, no heave, no gallop. 7) ABDOMEN: No guarding, no rebound, no focal tenderness, negative McBurney's, negative Tam's, negative Rovsing's, negative peritoneal sign, 8) MUSCULOSKELETAL: Moving all extremities, no focal areas of tenderness, no obvious trauma. No peripheral edema or discoloration. 9) BACK: No CVA tenderness, no midline vertebral tenderness, no fluctuance, no step-off, no obvious trauma, no visual or palpable abnormality. 10) SKIN: No rash, no petechiae. 11) Psychiatric: Patient is oriented X 3, there is no agitation. DIFFERENTIAL DIAGNOSIS: In no particular order in including but not limited to acute agitation, depression, suicidal ideation , homicidal ideation - Medical/Surgical History Hx Asthma: No Hx Chronic Respiratory Disease: No Hx Diabetes: No Hx Cardiac Disease: No Hx Renal Disease: No Hx Cirrhosis: No Hx Alcoholism: No Hx HIV/AIDS: No Hx Splenectomy or Spleen Trauma: No Other PMH: schizoaffective disorder - Social History Smoking Status: Current every day smoker Constitutional: Initial Vital Signs Temperature (C) 36.6 C 01/01/19 11:15 Heart Rate 115 H 01/01/19 11:15 Respiratory Rate 01/01/19 11:15 Blood Pressure 125/105 H 01/01/19 11:15 O2 Sat (%) 95 01/01/19 11:15 O2 Delivery Mode Room Air Allergies/Adverse Reactions: No Known Allergies Allergy (Verified 06/11/18 13:03) Home Medications: Medication Instructions Recorded Acetaminophen [Tylenol 325mg (*)] 650 mg PO Q4HRS PRN tab 12/17/18 cloZAPine [Clozaril (*)] 300 mg PO DAILY tab 12/17/18 Medical Decision Making ED Course/Re-evaluation: 5:00 p.m.: Care turned over to Dr. Brandon Salamanca awaiting mental health evaluation. Patient remains calm cooperative after initially being given further Haldol and Ativan emergency department shortly after arrival. - Data Points Laboratory Results: Laboratory Results 01/01/19 12:07 01/01/19 12:07 01/01/19 01/01/19 01/01/19 12:07 12:07 12:07 WBC 11.16 10^3/uL H 10^3/uL (3.80-9.50) RBC 4.79 10^6/uL 10^6/uL (4.18-5.33) Hgb 14.6 g/dL g/dL (12.6-16.3) Hct 43.3 % % (38.0-47.0) MCV 90.4 fL fL (81.5-99.8) MCH 30.5 pg pg (27.9-34.1) MCHC 33.7 g/dL g/dL (32.4-36.7) RDW 14.2 % % (11.5-15.2) Plt Count 271 10^3/uL 10^3/uL (150-400) MPV 10.7 fL fL (8.7-11.7) Neut % (Auto) 86.3 % H % (39.3-74.2) Lymph % (Auto) 5.7 % L % (15.0-45.0) [place] % (Auto) 7.4 % % (4.5-13.0) Eos % (Auto) 0.0 % L % (0.6-7.6) Baso % (Auto) 0.2 % L % (0.3-1.7) Nucleat RBC Rel Count 0.0 % % (0.0-0.2) Absolute Neuts (auto) 9.62 10^3/uL H 10^3/uL (1.70-6.50) Absolute Lymphs (auto) 0.64 10^3/uL L 10^3/uL (1.00-3.00) Absolute Monos (auto) 0.83 10^3/uL H 10^3/uL (0.30-0.80) Absolute Eos (auto) 0.00 10^3/uL L 10^3/uL (0.03-0.40) Absolute Basos (auto) 0.02 10^3/uL 10^3/uL (0.02-0.10) Absolute Nucleated RBC 0.00 10^3/uL 10^3/uL (0-0.01) Immature Gran % 0.4 % % (0.0-1.1) Immature Gran # 0.05 10^3/uL 10^3/uL (0.00-0.10) Sodium 139 mEq/L mEq/L (135-145) Potassium 3.5 mEq/L mEq/L (3.5-5.2) Chloride 108 mEq/L mEq/L (97-110) Carbon Dioxide 23 mEq/l mEq/l (22-31) Anion Gap 8 mEq/L mEq/L (6-14) BUN 15 mg/dL mg/dL (7-23) Creatinine 0.8 mg/dL mg/dL (0.6-1.0) Estimated GFR > 60 Glucose 144 mg/dL H mg/dL (70-100) Calcium 9.8 mg/dL mg/dL (8.5-10.4) Creatine Kinase 192 IU/L H IU/L (0-156) CK-MB (CK-2) Fraction 2.58 ng/mL ng/mL (0.00-4.55) CK-MB (CK-2) % 1.3 % % (0.0-4.0) Creatine Kinase Interp NEGATIVE (NEGATIVE) Beta HCG, Qual NEGATIVE Salicylates < 1.0 mg/dL L mg/dL (2.0-20.0) Acetaminophen < 10 mcg/mL L mcg/mL (10-30) Ethyl Alcohol < 10 mg/dL mg/dL (0-10) Medications Given: Discontinued Medications Haloperidol Lactate (Haldol Injection) 5 mg IM EDNOW ONE Stop: 01/01/19 11:21 Last Admin: 01/01/19 11:20 Dose: 5 mg Lorazepam (Ativan Injection) 1 mg IM EDNOW ONE Stop: 01/01/19 11:11 Last Admin: 01/01/19 11:30 Dose: Not Given Lorazepam (Ativan Injection) 2 mg IM EDNOW ONE Stop: 01/01/19 11:21 Last Admin: 01/01/19 11:20 Dose: 2 mg Departure - Departure Referrals: Patient,NotPresent [Unknown] - As per Instructions
[2019-01-01] MEDS ORDERED: HALOPERIDOL LACT 5 MG/ML INJ IM ONE (11:20)
[2019-01-01 12:28] LABS: PLATELET COUNT 271 10^3/uL (150-400)
[2019-01-01 12:49] LABS: CREATINE KINASE 192 IU/L (0-156)
[2019-01-01] MEDS ORDERED: IBUPROFEN 600 MG TAB PO ONE (19:34)
[2019-01-01] MEDS ORDERED: LORazepam 1 MG TAB PO ONE (19:34)
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
--- NOTE | 2019-01-01 21:57 | ASMTTCLDSP ---
[facility] Discharge Disposition Disposition: Answers: Discharge Discharge Concerns/Recommendations: Notes: In consultation with [facility] ED physician, Brandon Salamanca MD and on-call psychiatrist Bernadine Nielsen MD both concurred that pt appears to meet 27-65 criteria requiring psychiatric hospitalization as pt appears to be gravely disabled due to a mental illness condition. Pt was given (but declined to sign) the [facility] prohibited belongings list while in the ED. For inpatient Bernadine Nielsen MD admission, the following psychiatrist agreed to accept patient [facility] Date Signed: 01/01/2019 09:56 PM Electronically Signed By:Yesy Horne
[2019-01-02] MEDS ORDERED: MAGNESIUM HYDROXIDE 30 ML UDCUP PO PRN (00:25)
[2019-01-02] MEDS ORDERED: NICOTINE POLACRILEX 2 MG GUM B PRN (00:25)
[2019-01-02] MEDS ORDERED: MAG HYDROX/AL HYDROX/SIMETH 30 ML UDCUP PO PRN (00:25)
[2019-01-02] MEDS ORDERED: OLANZapine DISINTEGR 5 MG TAB PO PRN (00:25)
[2019-01-02] MEDS ORDERED: LORazepam 0.5 MG TAB PO PRN (00:25)
[2019-01-02] MEDS ORDERED: ACETAMINOPHEN 325 MG TAB PO PRN (00:25)
[2019-01-02] MEDS ORDERED: cloZAPine 25 MG TAB PO SCH (09:00)
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
--- NOTE | 2019-01-02 09:16 | ASMTCMCOM ---
CM Note CM Note Notes: CC met with ct. to develop MTP. Ct. demanded to be called "Dr. Clayton". Ct. started answering CC questions when she abruptly stopped and asked to speak "with someone who can understand me". When CC indicated that she should continue ct. walked away. Date Signed: 01/02/2019 09:16 AM Electronically Signed By:Camilla Alvarado
--- NOTE | 2019-01-02 09:18 | PDMN ---
Medical Necessity Medical necessity: Pt meets IP criteria as of 01/02/2019 per and [facility]Schizophrenia spectrum disorders, Adult: IP care); los > 2 mn for crisis stabilization as pt is gravely disabled, a danger to herself and others, presents on M1 hold.
[2019-01-02] MEDS: cloZAPine 25 MG TAB PO SCH (11:05)
[2019-01-02] MEDS ORDERED: PALIPERIDONE 3 MG TAB.ER PO ONE (12:53)
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
[2019-01-03] MEDS ORDERED: PALIPERIDONE 3 MG TAB.ER PO SCH (09:00)
--- NOTE | 2019-01-03 10:45 | SOAPPROG ---
SOAP Progress Note Assessment/Plan: Assessment: 43yo F with SZP and THC on LTC and c.o. med clozapine, recent d/c, med n/c and quickly decompensated. plan now to add RIDER to c.o. meds. 01/03/19 15:36 did not sleep last night. refusing VS refused invega 6mg took clozapine 25mg on eval, pt was in room, casually dressed, fair ec, nml speech rate but vol varied with affect, mood irritable, affect congruent, expressed frustration abot being in hosp again and thought she had 24hr to get in for appt does not want to start w/6mg invega, and argues that if plan is to add RIDER, she would like less clozaril. able to state that "I like how it works" but doesn't want 300mg bc that was " too much". 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 did not appear RIS, denied AH/VH or SI . directed conversation and ended it when she was done talking. did agree to take Invega at lower dose. PLAN: change Invega to 3mg from 6mg po to improve compliance pending amendment of COM incr clozapine to 50mg, took 25 today. has tolerated more rapid up titration during prior admission continues on M-1, needing txf of LTC from outpt [facility] weekly CBC 01/04/19 20:52 Objective: Vital Signs Temp Pulse Resp BP Pulse Ox 36.7 C 100 18 129/74 H 96 01/01/19 22:36 01/01/19 22:36 01/01/19 22:36 01/01/19 22:36 01/01/19 22:36 - Time Spent With Patient Time Spent With Patient: 15min - Pending Discharge Pending Discharge Within 24 Hours: No Pending Discharge Within 48 Hours: No ICD10 Worksheet Patient Problems: Problems Problem Status Onset Acute psychosis Acute Cannabis use disorder, severe, dependence Acute Psychosis Acute Schizoaffective disorder Chronic
[2019-01-03] MEDS: cloZAPine 25 MG TAB PO SCH (11:14)
--- NOTE | 2019-01-03 15:32 | ASMTCMCOM ---
CM Note CM Note Notes: CC attempted to meet with pt., but pt yelled at for talking to her while she was eating. Pt. has been observed responding to internal stimuli and making odd gesture. Pt. was overheard leaving a detailed message in code on the phone. Staff report pt. sleeping zero hours and refusing her medications, including Invega. Pt. has been unwilling to sign any ROIs to help coordinate her outpatient plan. Date Signed: 01/03/2019 03:32 PM Electronically Signed By:Codie Herrera
[2019-01-03] MEDS: PALIPERIDONE 3 MG TAB.ER PO SCH (21:17)
[2019-01-04] MEDS ORDERED: cloZAPine 25 MG TAB PO SCH (10:00)
--- NOTE | 2019-01-04 13:48 | ASMTCMCOM ---
CM Note CM Note Notes: CC attempted to meet with pt today, including calling pt. by her preferred name. Pt. stated "no" when asked if she would be willing to speak with CC. Staff report pt. took her Invega last evening. Staff report pt. sleeping zero hours for the third day in a row. CC will reach out to [facility] for follow up appointments with Dr. Carmona and Renetta Barton ([facility] clinician for monitored meds). Pt's PCP is Magui Neal with [facility] Date Signed: 01/04/2019 01:48 PM Electronically Signed By:Codie Herrera
--- NOTE | 2019-01-04 21:04 | SOAPPROG ---
SOAP Progress Note Assessment/Plan: Assessment: 43yo F with SZP and THC on LTC and c.o. med clozapine, recent d/c, med n/c and quickly decompensated. plan now to add RIDER to c.o. meds. 01/03/19 15:36 did not sleep last night. refusing VS refused invega 6mg took clozapine 25mg on eval, pt was in room, casually dressed, fair ec, nml speech rate but vol varied with affect, mood irritable, affect congruent, expressed frustration abot being in hosp again and thought she had 24hr to get in for appt does not want to start w/6mg invega, and argues that if plan is to add RIDER, she would like less clozaril. able to state that "I like how it works" but doesn't want 300mg bc that was " too much". 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 did not appear RIS, denied AH/VH or SI . directed conversation and ended it when she was done talking. did agree to take Invega at lower dose. PLAN: change Invega to 3mg from 6mg po to improve compliance pending amendment of COM incr clozapine to 50mg, took 25 today. has tolerated more rapid up titration during prior admission continues on M-1, needing txf of LTC from outpt [facility] weekly CBC 01/04/19 16:54 again did not sleep last night. noted napping briefly this AM, continues to insist clozaril be given in AM took Invega 3mg last night mse: fair ec, casually dressed, nml speech articulation and rate, abrupt interactions verbally and preferred not to engage in any conversation, remained in behav control, mood "fine", affect irritable, thought p/c- continues w/ grandiose delusions as noted by nsg staff, ambulating with steady gait denied physical complaints. denied any medication side effects at current doses PLAN cont Invega 3mg hs as she is compliant with this dose, and pending amendment of COM incr clozapine to 100mg in AM and monitor, has tolerated more rapid uptitration of clozaril previous admission placed on C after briefly reviewing options, also pending LTC transfer from outpt weekly CBC with diff, last on 01/01 will need to f/u VS, pt has been refusing since 01/01 Objective: Vital Signs Temp Pulse Resp BP Pulse Ox 36.7 C 100 18 129/74 H 96 01/01/19 22:36 01/01/19 22:36 01/01/19 22:36 01/01/19 22:36 01/01/19 22:36 - Time Spent With Patient Time Spent With Patient: 10min - Pending Discharge Pending Discharge Within 24 Hours: No Pending Discharge Within 48 Hours: No ICD10 Worksheet Patient Problems: Problems Problem Status Onset Acute psychosis Acute Cannabis use disorder, severe, dependence Acute Psychosis Acute Schizoaffective disorder Chronic
[2019-01-04] MEDS ORDERED: cloZAPine 100 MG TAB PO SCH (21:07)
[2019-01-04] MEDS: PALIPERIDONE 3 MG TAB.ER PO SCH (21:25)
--- NOTE | 2019-01-05 07:44 | SOAPPROG ---
SOAP Progress Note Assessment/Plan: Assessment: Schizoaffective Disorder, Bipolar Type. No improvement noted. (see subjective/ objective note). Patient is not safe to discharge at this time as patient continues to exhibit signs of psychosis, and express psychosis symptoms. Patient requires continued inpatient care because of current psychosis, and requires inpatient level of care to stabilize in order to no longer be gravely disabled due to mental illness. Patient is unable to communicate her basic needs, unable to test reality, and continues to require prompting and direction from staff for ADLs. Patient exhibits inability to provide for herself, neglecting self-care, withdrawn from social interactions, currently shows inability to maintain any appropriate aspect of personal responsibility as an adult, patient becomes agitated and irritable easily and continues exhibited irritable behavior toward staff. Support system has inability to manage functional impairment at lower level of care. Patient could benefit from continued inpatient hospitalization for crisis stabilization, safety, and medication evaluation. Plan: 1. Psychotropic medications: After reviewing options, risks, and benefits patient agrees to continue current medications, change Invega to AM dosing. Invega Sustenna 234 mg IM for Saturday and 156 mg IM on Saturday. No other medication changes at this time as more time is needed to determine ongoing tolerability and efficacy. Plan is to continue to observe patient for response and side effects from medications, and ongoing monitoring and evaluation. 2. Review with patient informed consent and recommendations for psychotropic medication treatment listed below 3. Labs: no additional labs at this time 4. Therapy: continue milieu and group therapy 5. Further investigation including gathering information from patients relatives and review of past case records to inform treatment plan. 6. Safety/Wellness plan and follow-up outpatient appointments to be established prior to discharge. Next steps are for patient to meet with career agent to plan a safe discharge plan and establish outpatient services for ongoing treatment. 7. Confer with inpatient treatment team regarding treatment plan. 8. Psychosocial stressors addressed through pillowcase folder 9. Legal status: LTC / COM 10. Consider discharge next week if patient is in stable condition, safe, and has a safe discharge plan. PSYCHOTROPIC MEDICATION TREATMENT INFORMED CONSENT and RECOMMENDATIONS: Review nature of condition, diagnosis, and prognosis. Review nature and purpose of psychotropic medication treatment. Review type of psychotropic medications being ordered. Review risk and benefits of psychotropic medication treatment. Review probable length of time patient will need to take medications. Review risk and benefits of not undergoing psychotropic medication treatment. Review alternative treatments to psychotropic medications. Review psychotropic medications contraindications, drug-drug interactions, side effects, and importance of reporting any side effects to a psychiatric provider or nurse during inpatient hospitalization, and upon discharge to patients psychiatric outpatient provider, primary care provider, or other health care consultant. Review importance of asking a nurse, psychiatric provider, or primary care provider any questions or problems concerning the psychotropic medications. Verify patient understands the information that has been provided, and understands, accepts, and agrees to psychotropic medications. Review patients safety plan and importance of patient to report to staff while hospitalized if patient is ever a danger to self/others, or unable to care for self, and upon discharge, the importance for patient to contact [facility] or [facility], or go to the nearest emergency room, if patient is ever a danger to self/others, or unable to care for self. Recommend that upon discharge patient establish medication management treatment with a psychiatric provider, establishes routine therapy appointments, and follow-up with primary care provider. Verify patient understands and agrees to these recommendations. 01/05/19 07:44 Subjective: Following up with patient for evaluation of psychosis, suzi, and safety. Patient states, "No its Dr. Byrne. Who are you? What are you made of?" Patient reports no side effects from current medications, and agrees to continue current medications. Patient requests Invega to be dosed in AM along with Clozapine. With regard to RIDER patient states, "I will think about it. If I do it, I only want the lowest dose." Objective: Vital Signs Temp Pulse Resp BP Pulse Ox 36.7 C 100 18 129/74 H 96 01/01/19 22:36 01/01/19 22:36 01/01/19 22:36 01/01/19 22:36 01/01/19 22:36 NURSING REPORT: Consulted with nursing for update on patients progress in treatment. Nurses report patient is not engaged in treatment, does not attend groups; patient slept total of 1 hour; expresses the following psychiatric symptoms: anxious and irritable; exhibits the following psychiatric symptoms: unable to test reality, irritable, disorganized, tangential, loose associations , nonsensical, continues to refer to herself as a doctor and corrects staff when called by her first name; is eating all meals, requires continued prompting and direction from staff for ADLs, and is unable to communicate her basic needs; is agreeable to scheduled medications and taking as prescribed with no report of side effects, with no s/s of EPS/akathisia, and denies SI/HI, denies A/V hallucinations, and reports delusions. RN REPORT FROM 01/04/19 : Pt did make one phone call this evening, which began in an unintelligible language that this ad copy writer did not understand,nor exists. Later,when approached with medications,became upset because she was not addressed ,as 'Doctor/margy". Very dramatic, initially refused medication, made nurse get a different pill. Lectured this nurse for ten minutes about how horrible he was, then took pill. Got upset when nurse mentioned lack of sleep for her, adamantly refused vital signs. MSE: The patient is a well-nourished female looking older than stated chronological age. Attire is appropriate dress is hospital garb. Grooming status is inappropriate and disheveled. Ambulation is independent. Gait is normal and coordinated. Posture is normal. Eye contact is inappropriate and staring. Motor activity is appropriate with purposeful, organized, coordinated movements; with no involuntary movements. Attitude is uncooperative, defensive and guarded at times. Patient appears attentive and relates well to this interviewer. Language production is spontaneous. Rate is pressured. Latency of response is shortened with irritable tone. Articulation is clear. Patient reports mood as okay with expansive and inappropriate affect. Patients thought process is disorganized, non-linear and illogical, with loose associations, nonsensical. Patient does not report suicidal/homicidal thoughts, ideas, or plans. Patient denies auditory, visual hallucinations. Patient reports delusions. Patient does not appear to be attending to internal stimuli. Patients attention and concentration are poor. Patient is oriented to person, place, and time. Patients insight is poor. Patients judgment is poor. - Time Spent With Patient Time Spent With Patient: 15 minutes, met with patient individually. - Pending Discharge Pending Discharge Within 24 Hours: No Pending Discharge Within 48 Hours: No ICD10 Worksheet Patient Problems: Problems Problem Status Onset Acute psychosis Acute Cannabis use disorder, severe, dependence Acute Psychosis Acute Schizoaffective disorder Chronic
[2019-01-05] MEDS ORDERED: cloZAPine 25 MG TAB PO SCH (10:00)
[2019-01-05] MEDS: PALIPERIDONE 3 MG TAB.ER PO SCH (11:09)
--- NOTE | 2019-01-06 06:39 | SOAPPROG ---
SOAP Progress Note Assessment/Plan: Assessment: Schizoaffective Disorder, Bipolar Type. No improvement noted. (see subjective/ objective note). Patient is not safe to discharge at this time as patient continues to exhibit signs of psychosis, and express psychosis symptoms. Patient requires continued inpatient care because of current psychosis, and requires inpatient level of care to stabilize in order to no longer be gravely disabled due to mental illness. Patient is unable to communicate her basic needs, unable to test reality, and continues to require prompting and direction from staff for ADLs. Patient exhibits inability to provide for herself, neglecting self-care, withdrawn from social interactions, currently shows inability to maintain any appropriate aspect of personal responsibility as an adult, patient becomes agitated and irritable easily and continues exhibited irritable behavior toward staff. Support system has inability to manage functional impairment at lower level of care. Patient could benefit from continued inpatient hospitalization for crisis stabilization, safety, and medication evaluation. Plan: 1. Psychotropic medications: After reviewing options, risks, and benefits patient agrees to continue current medications and increase Clozapine to 150 mg po QD. No other medication changes at this time as more time is needed to determine ongoing tolerability and efficacy. Plan is to continue to observe patient for response and side effects from medications, and ongoing monitoring and evaluation. 2. Review with patient informed consent and recommendations for psychotropic medication treatment listed below 3. Labs: no additional labs at this time 4. Therapy: continue milieu and group therapy 5. Further investigation including gathering information from patients relatives and review of past case records to inform treatment plan. 6. Safety/Wellness plan and follow-up outpatient appointments to be established prior to discharge. Next steps are for patient to meet with director of healthcare systems to plan a safe discharge plan and establish outpatient services for ongoing treatment. 7. Confer with inpatient treatment team regarding treatment plan. 8. Psychosocial stressors addressed through mental health case manager 9. Legal status: LT / [facility] 10. Consider discharge next week if patient is in stable condition, safe, and has a safe discharge plan. PSYCHOTROPIC MEDICATION TREATMENT INFORMED CONSENT and RECOMMENDATIONS: Review nature of condition, diagnosis, and prognosis. Review nature and purpose of psychotropic medication treatment. Review type of psychotropic medications being ordered. Review risk and benefits of psychotropic medication treatment. Review probable length of time patient will need to take medications. Review risk and benefits of not undergoing psychotropic medication treatment. Review alternative treatments to psychotropic medications. Review psychotropic medications contraindications, drug-drug interactions, side effects, and importance of reporting any side effects to a psychiatric provider or nurse during inpatient hospitalization, and upon discharge to patients psychiatric outpatient provider, primary care provider, or other health childbirth and infant care teacher. Review importance of asking a nurse, psychiatric provider, or primary care provider any questions or problems concerning the psychotropic medications. Verify patient understands the information that has been provided, and understands, accepts, and agrees to psychotropic medications. Review patients safety plan and importance of patient to report to staff while hospitalized if patient is ever a danger to self/others, or unable to care for self, and upon discharge, the importance for patient to contact [facility] or [facility], or go to the nearest emergency room, if patient is ever a danger to self/others, or unable to care for self. Recommend that upon discharge patient establish medication management treatment with a psychiatric provider, establishes routine therapy appointments, and follow-up with primary care provider. Verify patient understands and agrees to these recommendations. 01/06/19 06:39 Subjective: Following up with patient for evaluation of psychosis, suzi, and safety. Patient states, "Not right now please. Don't want to meet. I need another day on the injection too, more to read-up on." Patient reports no side effects from current medications, and agrees to continue current medications. Patient agrees to increase Clozapine to 150 mg po QD. Objective: Vital Signs Temp Pulse Resp BP Pulse Ox 36.7 C 100 18 129/74 H 96 01/01/19 22:36 01/01/19 22:36 01/01/19 22:36 01/01/19 22:36 01/01/19 22:36 NURSING REPORT: Consulted with nursing for update on patients progress in treatment. Nurses report patient is not engaged in treatment, does not attend groups; patient did not sleep; expresses the following psychiatric symptoms: anxious and irritable; exhibits the following psychiatric symptoms: unable to test reality, irritable, disorganized, tangential, loose associations, nonsensical, continues to refer to herself as a doctor and corrects staff when called by her first name; is eating all meals, requires continued prompting and direction from staff for ADLs, and is unable to communicate her basic needs; is agreeable to scheduled medications and taking as prescribed with no report of side effects, with no s/s of EPS/akathisia, and denies SI/HI, denies A/V hallucinations, and reports delusions. RN REPORT FROM 01/05/19: Remains irritable. Feels that her black trousers were stolen while she napped this afternoon. Insists on being addressed as Matilde. MSE: The patient is a well-nourished female looking older than stated chronological age. Attire is appropriate dress is hospital garb. Grooming status is inappropriate and disheveled. Ambulation is independent. Gait is normal and coordinated. Posture is normal. Eye contact is inappropriate and staring. Motor activity is appropriate with purposeful, organized, coordinated movements; with no involuntary movements. Attitude is uncooperative, defensive and guarded at times. Patient appears attentive and relates well to this interviewer. Language production is spontaneous. Rate is pressured. Latency of response is shortened with irritable tone. Articulation is clear. Patient reports mood as okay with expansive and inappropriate affect. Patients thought process is disorganized, non-linear and illogical, with loose associations, nonsensical. Patient does not report suicidal/homicidal thoughts, ideas, or plans. Patient denies auditory, visual hallucinations. Patient reports delusions. Patient does not appear to be attending to internal stimuli. Patients attention and concentration are poor. Patient is oriented to person, place, and time. Patients insight is poor. Patients judgment is poor. - Time Spent With Patient Time Spent With Patient: 15 minutes, met with patient individually. - Pending Discharge Pending Discharge Within 24 Hours: No Pending Discharge Within 48 Hours: No ICD10 Worksheet Patient Problems: Problems Problem Status Onset Acute psychosis Acute Cannabis use disorder, severe, dependence Acute Psychosis Acute Schizoaffective disorder Chronic
[2019-01-06] MEDS ORDERED: PALIPERIDONE PALMITATE 234 MG/1.5 ML SYR IM ONE (09:00)
[2019-01-06] MEDS ORDERED: cloZAPine 100 MG TAB PO SCH (10:00)
[2019-01-06] MEDS: PALIPERIDONE 3 MG TAB.ER PO SCH (10:51)
--- NOTE | 2019-01-07 06:29 | SOAPPROG ---
SOAP Progress Note Assessment/Plan: Assessment: Schizoaffective Disorder, Bipolar Type. No improvement noted. (see subjective/ objective note). Patient is not safe to discharge at this time as patient continues to exhibit signs of psychosis, and express psychosis symptoms. Patient requires continued inpatient care because of current psychosis, and requires inpatient level of care to stabilize in order to no longer be gravely disabled due to mental illness. Patient is unable to communicate her basic needs, unable to test reality, and continues to require prompting and direction from staff for ADLs. Patient exhibits inability to provide for herself, neglecting self-care, withdrawn from social interactions, currently shows inability to maintain any appropriate aspect of personal responsibility as an adult, patient becomes agitated and irritable easily and continues exhibited irritable behavior toward staff. Support system has inability to manage functional impairment at lower level of care. Patient could benefit from continued inpatient hospitalization for crisis stabilization, safety, and medication evaluation. Plan: 1. Psychotropic medications: After reviewing options, risks, and benefits patient agrees to continue current medications and increase Clozapine to 200 mg po QD and agrees to Invega Sustenna 234 mg IM today. No other medication changes at this time as more time is needed to determine ongoing tolerability and efficacy. Plan is to continue to observe patient for response and side effects from medications, and ongoing monitoring and evaluation. 2. Review with patient informed consent and recommendations for psychotropic medication treatment listed below 3. Labs: no additional labs at this time 4. Therapy: continue milieu and group therapy 5. Further investigation including gathering information from patients relatives and review of past case records to inform treatment plan. 6. Safety/Wellness plan and follow-up outpatient appointments to be established prior to discharge. Next steps are for patient to meet with urgent care to plan a safe discharge plan and establish outpatient services for ongoing treatment. 7. Confer with inpatient treatment team regarding treatment plan. 8. Psychosocial stressors addressed through telehealth case manager 9. Legal status: LTC / COM 10. Consider discharge next week if patient is in stable condition, safe, and has a safe discharge plan. PSYCHOTROPIC MEDICATION TREATMENT INFORMED CONSENT and RECOMMENDATIONS: Review nature of condition, diagnosis, and prognosis. Review nature and purpose of psychotropic medication treatment. Review type of psychotropic medications being ordered. Review risk and benefits of psychotropic medication treatment. Review probable length of time patient will need to take medications. Review risk and benefits of not undergoing psychotropic medication treatment. Review alternative treatments to psychotropic medications. Review psychotropic medications contraindications, drug-drug interactions, side effects, and importance of reporting any side effects to a psychiatric provider or nurse during inpatient hospitalization, and upon discharge to patients psychiatric outpatient provider, primary care provider, or other health ocular care aide. Review importance of asking a nurse, psychiatric provider, or primary care provider any questions or problems concerning the psychotropic medications. Verify patient understands the information that has been provided, and understands, accepts, and agrees to psychotropic medications. Review patients safety plan and importance of patient to report to staff while hospitalized if patient is ever a danger to self/others, or unable to care for self, and upon discharge, the importance for patient to contact [facility] or [facility], or go to the nearest emergency room, if patient is ever a danger to self/others, or unable to care for self. Recommend that upon discharge patient establish medication management treatment with a psychiatric provider, establishes routine therapy appointments, and follow-up with primary care provider. Verify patient understands and agrees to these recommendations. 01/07/19 06:28 Subjective: Following up with patient for evaluation of psychosis, suzi, and safety. Patient states, "Please, I'm in the middle of something." Patient reports no side effects from current medications, and agrees to continue current medications. Patient agrees to increase Clozapine to 200 mg po QD and agrees to Invega Sustenna 234 mg IM today. Objective: Vital Signs Temp Pulse Resp BP Pulse Ox 36.7 C 100 18 129/74 H 96 01/01/19 22:36 01/01/19 22:36 01/01/19 22:36 01/01/19 22:36 01/01/19 22:36 NURSING REPORT: Consulted with nursing for update on patients progress in treatment. Nurses report patient is not engaged in treatment, does not attend groups; patient did not sleep; expresses the following psychiatric symptoms: anxious and irritable; exhibits the following psychiatric symptoms: unable to test reality, irritable, disorganized, tangential, loose associations, nonsensical, continues to refer to herself as a doctor and corrects staff when called by her first name; is eating all meals, requires continued prompting and direction from staff for ADLs, and is unable to communicate her basic needs; is agreeable to scheduled medications and taking as prescribed with no report of side effects, with no s/s of EPS/akathisia, and denies SI/HI, denies A/V hallucinations, and reports delusions. MSE: The patient is a well-nourished female looking older than stated chronological age. Attire is appropriate dress is hospital garb. Grooming status is inappropriate and disheveled. Ambulation is independent. Gait is normal and coordinated. Posture is normal. Eye contact is inappropriate and staring. Motor activity is appropriate with purposeful, organized, coordinated movements; with no involuntary movements. Attitude is uncooperative, defensive and guarded at times. Patient appears attentive and relates well to this interviewer. Language production is spontaneous. Rate is pressured. Latency of response is shortened with irritable tone. Articulation is clear. Patient reports mood as okay with expansive and inappropriate affect. Patients thought process is disorganized, non-linear and illogical, with loose associations, nonsensical. Patient does not report suicidal/homicidal thoughts, ideas, or plans. Patient denies auditory, visual hallucinations. Patient reports delusions. Patient does not appear to be attending to internal stimuli. Patients attention and concentration are poor. Patient is oriented to person, place, and time. Patients insight is poor. Patients judgment is poor. - Time Spent With Patient Time Spent With Patient: 15 minutes, met with patient individually. - Pending Discharge Pending Discharge Within 24 Hours: No Pending Discharge Within 48 Hours: No ICD10 Worksheet Patient Problems: Problems Problem Status Onset Acute psychosis Acute Cannabis use disorder, severe, dependence Acute Psychosis Acute Schizoaffective disorder Chronic
[2019-01-07] MEDS ORDERED: PALIPERIDONE PALMITATE 234 MG/1.5 ML SYR IM ONE (09:00)
[2019-01-07] MEDS: cloZAPine 100 MG TAB PO SCH (10:16)
[2019-01-07] MEDS: PALIPERIDONE 3 MG TAB.ER PO SCH (10:16)
--- NOTE | 2019-01-08 06:39 | SOAPPROG ---
SOAP Progress Note Assessment/Plan: Assessment: Schizoaffective Disorder, Bipolar Type. Slight improvement noted; notably sleep (see subjective/objective note). Patient is not safe to discharge at this time as patient continues to exhibit signs of psychosis, and express psychosis symptoms. Patient requires continued inpatient care because of current psychosis, and requires inpatient level of care to stabilize in order to no longer be gravely disabled due to mental illness. Patient is unable to communicate her basic needs, unable to test reality, and continues to require prompting and direction from staff for ADLs. Patient exhibits inability to provide for herself, neglecting self-care, withdrawn from social interactions, currently shows inability to maintain any appropriate aspect of personal responsibility as an adult, patient becomes agitated and irritable easily and continues exhibited irritable behavior toward staff. Support system has inability to manage functional impairment at lower level of care. Patient could benefit from continued inpatient hospitalization for crisis stabilization , safety, and medication evaluation. Plan: 1. Psychotropic medications: After reviewing options, risks, and benefits patient agrees to continue current medications. No other medication changes at this time as more time is needed to determine ongoing tolerability and efficacy. Patient is showing response from current dose of Clozapine 200 mg. Will continue at current dose with Clozapine level on Saturday. Plan is to continue to observe patient for response and side effects from medications, and ongoing monitoring and evaluation. 2. Review with patient informed consent and recommendations for psychotropic medication treatment listed below 3. Labs: Clozapine level Saturday 4. Therapy: continue milieu and group therapy 5. Further investigation including gathering information from patients relatives and review of past case records to inform treatment plan. 6. Safety/Wellness plan and follow-up outpatient appointments to be established prior to discharge. Next steps are for patient to meet with career transition specialist to plan a safe discharge plan and establish outpatient services for ongoing treatment. 7. Confer with inpatient treatment team regarding treatment plan. 8. Psychosocial stressors addressed through onsite case manager 9. Legal status: LTC / COM 10. Consider discharge next week if patient is in stable condition, safe, and has a safe discharge plan. PSYCHOTROPIC MEDICATION TREATMENT INFORMED CONSENT and RECOMMENDATIONS: Review nature of condition, diagnosis, and prognosis. Review nature and purpose of psychotropic medication treatment. Review type of psychotropic medications being ordered. Review risk and benefits of psychotropic medication treatment. Review probable length of time patient will need to take medications. Review risk and benefits of not undergoing psychotropic medication treatment. Review alternative treatments to psychotropic medications. Review psychotropic medications contraindications, drug-drug interactions, side effects, and importance of reporting any side effects to a psychiatric provider or nurse during inpatient hospitalization, and upon discharge to patients psychiatric outpatient provider, primary care provider, or other health career discovery teacher. Review importance of asking a nurse, psychiatric provider, or primary care provider any questions or problems concerning the psychotropic medications. Verify patient understands the information that has been provided, and understands, accepts, and agrees to psychotropic medications. Review patients safety plan and importance of patient to report to staff while hospitalized if patient is ever a danger to self/others, or unable to care for self, and upon discharge, the importance for patient to contact [facility] or [facility], or go to the nearest emergency room, if patient is ever a danger to self/others, or unable to care for self. Recommend that upon discharge patient establish medication management treatment with a psychiatric provider, establishes routine therapy appointments, and follow-up with primary care provider. Verify patient understands and agrees to these recommendations. 01/08/19 06:37 Subjective: Following up with patient for evaluation of psychosis, suzi, and safety. Patient states, "Yes, everything is okay. Thank you." Patient reports no side effects from current medications, and agrees to continue current medications. Objective: Vital Signs Temp Pulse Resp BP Pulse Ox 36.7 C 100 18 129/74 H 96 01/01/19 22:36 01/01/19 22:36 01/01/19 22:36 01/01/19 22:36 01/01/19 22:36 NURSING REPORT: Consulted with nursing for update on patients progress in treatment. Nurses report patient is not engaged in treatment, does not attend groups; slept 6 hours; expresses the following psychiatric symptoms: anxious and irritable; exhibits the following psychiatric symptoms: unable to test reality, irritable, disorganized, tangential, loose associations, nonsensical, continues to refer to herself as a doctor and corrects staff when called by her first name; is eating all meals, requires continued prompting and direction from staff for ADLs, and is unable to communicate her basic needs; is agreeable to scheduled medications and taking as prescribed with no report of side effects , with no s/s of EPS/akathisia, and denies SI/HI, denies A/V hallucinations, and reports delusions. MSE: The patient is a well-nourished female looking older than stated chronological age. Attire is appropriate dress is hospital garb. Grooming status is inappropriate and disheveled. Ambulation is independent. Gait is normal and coordinated. Posture is normal. Eye contact is inappropriate and staring. Motor activity is appropriate with purposeful, organized, coordinated movements; with no involuntary movements. Attitude is uncooperative, defensive and guarded at times. Patient appears attentive and relates well to this interviewer. Language production is spontaneous. Rate is pressured. Latency of response is shortened with irritable tone. Articulation is clear. Patient reports mood as okay with expansive and inappropriate affect. Patients thought process is disorganized, non-linear and illogical, with loose associations, nonsensical. Patient does not report suicidal/homicidal thoughts, ideas, or plans. Patient denies auditory, visual hallucinations. Patient reports delusions. Patient does not appear to be attending to internal stimuli. Patients attention and concentration are poor. Patient is oriented to person, place, and time. Patients insight is poor. Patients judgment is poor. - Time Spent With Patient Time Spent With Patient: 15 minutes, met with patient individually. - Pending Discharge Pending Discharge Within 24 Hours: No Pending Discharge Within 48 Hours: No ICD10 Worksheet Patient Problems: Problems Problem Status Onset Acute psychosis Acute Cannabis use disorder, severe, dependence Acute Psychosis Acute Schizoaffective disorder Chronic
--- NOTE | 2019-01-08 06:52 | ASMTCMCOM ---
CM Note CM Note Notes: Client continues to remain nonsensical (for the most part) while on the unit. She makes several calls to unknown individuals while rambling off numbers and "codes." Client appears to be disorganized; however, making some improvements while titrating meds. Date Signed: 01/08/2019 06:52 AM Electronically Signed By:Morris Acharya
[2019-01-08 08:01] LABS: PLATELET COUNT 218 10^3/uL (150-400)
[2019-01-08] MEDS ORDERED: IBUPROFEN 200 MG TAB PO PRN (11:02)
[2019-01-08] MEDS: PALIPERIDONE 3 MG TAB.ER PO SCH (12:20)
[2019-01-08] MEDS: cloZAPine 100 MG TAB PO SCH (12:20)
[2019-01-08] MEDS: cloZAPine 25 MG TAB PO SCH (12:20)
--- NOTE | 2019-01-08 13:10 | ASMTBHDC ---
Notes Note: Notes: The patient participated in clinical treatment team rounds. She was engaged and appropriate. She remained standing for the duration of the meeting. She reported that she is tolerating the medication although she had some pain from the initial injection. The patient lacked insight into the need for a RIDER due to her hx of noncompliance. The patient agreed to follow up with her outpatient team upon discharge. Date Signed: 01/08/2019 01:09 PM Electronically Signed By:Ninfa Lawton
--- NOTE | 2019-01-09 06:35 | SOAPPROG ---
SOAP Progress Note Assessment/Plan: Assessment: Schizoaffective Disorder, Bipolar Type. No improvement noted (see subjective/ objective note). Patient is not safe to discharge at this time as patient continues to exhibit signs of psychosis, and express psychosis symptoms. Patient requires continued inpatient care because of current psychosis, and requires inpatient level of care to stabilize in order to no longer be gravely disabled due to mental illness. Patient is unable to communicate her basic needs, unable to test reality, and continues to require prompting and direction from staff for ADLs. Patient exhibits inability to provide for herself, neglecting self-care, withdrawn from social interactions, currently shows inability to maintain any appropriate aspect of personal responsibility as an adult, patient becomes agitated and irritable easily and continues exhibited irritable behavior toward staff. Support system has inability to manage functional impairment at lower level of care. Patient could benefit from continued inpatient hospitalization for crisis stabilization, safety, and medication evaluation. Plan: 1. Psychotropic medications: After reviewing options, risks, and benefits patient agrees to continue current medications. No other medication changes at this time as more time is needed to determine ongoing tolerability and efficacy. Patient is showing response from current dose of Clozapine 200 mg. Will continue at current dose with Clozapine level on Saturday. Plan is to continue to observe patient for response and side effects from medications, and ongoing monitoring and evaluation. 2. Review with patient informed consent and recommendations for psychotropic medication treatment listed below 3. Labs: Clozapine level Saturday 4. Therapy: continue milieu and group therapy 5. Further investigation including gathering information from patients relatives and review of past case records to inform treatment plan. 6. Safety/Wellness plan and follow-up outpatient appointments to be established prior to discharge. Next steps are for patient to meet with child care development specialist to plan a safe discharge plan and establish outpatient services for ongoing treatment. 7. Confer with inpatient treatment team regarding treatment plan. 8. Psychosocial stressors addressed through insurance case manager 9. Legal status: LTC / COM 10. Consider discharge next week if patient is in stable condition, safe, and has a safe discharge plan. PSYCHOTROPIC MEDICATION TREATMENT INFORMED CONSENT and RECOMMENDATIONS: Review nature of condition, diagnosis, and prognosis. Review nature and purpose of psychotropic medication treatment. Review type of psychotropic medications being ordered. Review risk and benefits of psychotropic medication treatment. Review probable length of time patient will need to take medications. Review risk and benefits of not undergoing psychotropic medication treatment. Review alternative treatments to psychotropic medications. Review psychotropic medications contraindications, drug-drug interactions, side effects, and importance of reporting any side effects to a psychiatric provider or nurse during inpatient hospitalization, and upon discharge to patients psychiatric outpatient provider, primary care provider, or other health rn homecare. Review importance of asking a nurse, psychiatric provider, or primary care provider any questions or problems concerning the psychotropic medications. Verify patient understands the information that has been provided, and understands, accepts, and agrees to psychotropic medications. Review patients safety plan and importance of patient to report to staff while hospitalized if patient is ever a danger to self/others, or unable to care for self, and upon discharge, the importance for patient to contact [facility] or [facility], or go to the nearest emergency room, if patient is ever a danger to self/others, or unable to care for self. Recommend that upon discharge patient establish medication management treatment with a psychiatric provider, establishes routine therapy appointments, and follow-up with primary care provider. Verify patient understands and agrees to these recommendations. 01/09/19 06:35 Subjective: Following up with patient for evaluation of psychosis, suzi, and safety. Patient states, "I am doing fine." Patient reports no side effects from current medications, and agrees to continue current medications. Objective: Vital Signs Temp Pulse Resp BP Pulse Ox 36.7 C 100 18 129/74 H 96 01/01/19 22:36 01/01/19 22:36 01/01/19 22:36 01/01/19 22:36 01/01/19 22:36 Laboratory Results 01/08/19 07:00 NURSING REPORT: Consulted with nursing for update on patients progress in treatment. Nurses report patient is not engaged in treatment, does not attend groups; slept 2 hours; expresses the following psychiatric symptoms: anxious and irritable; exhibits the following psychiatric symptoms: unable to test reality, irritable, disorganized, tangential, loose associations, nonsensical, continues to refer to herself as a doctor and corrects staff when called by her first name; is eating all meals, requires continued prompting and direction from staff for ADLs, and is unable to communicate her basic needs; is agreeable to scheduled medications and taking as prescribed with no report of side effects , with no s/s of EPS/akathisia, and denies SI/HI, denies A/V hallucinations, and reports delusions. MSE: The patient is a well-nourished female looking older than stated chronological age. Attire is appropriate dress is hospital garb. Grooming status is inappropriate and disheveled. Ambulation is independent. Gait is normal and coordinated. Posture is normal. Eye contact is inappropriate and staring. Motor activity is appropriate with purposeful, organized, coordinated movements; with no involuntary movements. Attitude is uncooperative, defensive and guarded at times. Patient appears attentive and relates well to this interviewer. Language production is spontaneous. Rate is pressured. Latency of response is shortened with irritable tone. Articulation is clear. Patient reports mood as okay with expansive and inappropriate affect. Patients thought process is disorganized, non-linear and illogical, with loose associations, nonsensical. Patient does not report suicidal/homicidal thoughts, ideas, or plans. Patient denies auditory, visual hallucinations. Patient reports delusions. Patient does not appear to be attending to internal stimuli. Patients attention and concentration are poor. Patient is oriented to person, place, and time. Patients insight is poor. Patients judgment is poor. - Time Spent With Patient Time Spent With Patient: 15 minutes, met with patient individually. - Pending Discharge Pending Discharge Within 24 Hours: No Pending Discharge Within 48 Hours: No ICD10 Worksheet Patient Problems: Problems Problem Status Onset Acute psychosis Acute Cannabis use disorder, severe, dependence Acute Psychosis Acute Schizoaffective disorder Chronic
[2019-01-09] MEDS ORDERED: PALIPERIDONE PALMITATE 156 MG/ML SYR IM ONE (09:00)
[2019-01-09] MEDS: cloZAPine 25 MG TAB PO SCH (11:53)
[2019-01-09] MEDS: PALIPERIDONE 3 MG TAB.ER PO SCH (11:53)
--- NOTE | 2019-01-09 13:09 | ASMTBHDC ---
Notes Note: Notes: This insurance underwriter requested follow up from [facility], Inpatient Liaison, who reported concern about the patient's improvement and questioned the medication regimen; she plans to connect the providers to further discuss. This insurance underwriter left a voice mail with the patient's mother to discuss the patient's current presentation and plan for discharge. The patient presents as calm with a positive mood. She is sleeping approximately six hours per night. Additionally, the patient is medication adherent. Date Signed: 01/09/2019 01:08 PM Electronically Signed By:Ninfa Lawton
[2019-01-10] MEDS ORDERED: PALIPERIDONE PALMITATE 156 MG/ML SYR IM ONE ×2 (09:00→12:00)
[2019-01-10 09:39] VITALS: BP 121/70
[2019-01-10] MEDS: PALIPERIDONE 3 MG TAB.ER PO SCH (11:03)
[2019-01-10] MEDS: cloZAPine 25 MG TAB PO SCH (11:04)
--- NOTE | 2019-01-10 14:56 | ASMTBHFAM ---
Notes Note: Notes: CC spoke with pt's MOC, Maddison, (cell -[phone], home -[phone]). MOC called and left a message on CC's voicemail. MOC stated she is "very concerned " about pt potentially discharging on Saturday. CC reached out to MOC. MOC stated pt "can presents herself really well". MOC stated she doesn't feel the pt. is ready to discharge on Saturday. MO asked to please call her prior to pt. discharging. MOC stated pt "becomes dangerous when released too early". MOC stated pt. is known to cheek her medications or throw them up in the past. MOC stated in the past between pt. not showing up for her medications and [facility] coming to her apartment, pt. became afraid of her home and was homeless in 6 degree weather, with no coat, begging for money. MOC stated she lives in [place], about [place] hours away from [place] and pt.. MOC stated pt. has "been known to take buses and trains" in the past when in a psychotic state and became lost. MOC stated when pt. is psychotic she "trashes her apartment" and is a "danger to neighbors". MOC stated she would "hate for her to lose roof over her head". MOC stated "two weeks is not enough" for pt. to be in the hospital. MOC stated she recently learned pt has been smoking pot for years for fibromyalgia. MOC stated "trying to get help for her is horrendous". MOC stated pt. had a daughter 11 years ago who was adopted. MOC stated this is the pt's 19th hospitalization in 20 years. MOC stated she can come up to the unit on Saturday. MO requested a call prior to pt. being discharged. [facility] wants to assist pt. when she discharges and goes home. Date Signed: 01/10/2019 02:56 PM Electronically Signed By:Codie Herrera
--- NOTE | 2019-01-10 16:36 | SOAPPROG ---
SOAP Progress Note Assessment/Plan: Assessment: Per Lemuel Mendez's note: Schizoaffective Disorder, Bipolar Type. No improvement noted (see subjective/ objective note). Patient is not safe to discharge at this time as patient continues to exhibit signs of psychosis, and express psychosis symptoms. Patient requires continued inpatient care because of current psychosis, and requires inpatient level of care to stabilize in order to no longer be gravely disabled due to mental illness. Patient is unable to communicate her basic needs, unable to test reality, and continues to require prompting and direction from staff for ADLs. Patient exhibits inability to provide for herself, neglecting self-care, withdrawn from social interactions, currently shows inability to maintain any appropriate aspect of personal responsibility as an adult, patient becomes agitated and irritable easily and continues exhibited irritable behavior toward staff. Support system has inability to manage functional impairment at lower level of care. Patient could benefit from continued inpatient hospitalization for crisis stabilization, safety, and medication evaluation. Plan: 1. Psychotropic medications: After reviewing options, risks, and benefits patient agrees to continue current medications. No other medication changes at this time as more time is needed to determine ongoing tolerability and efficacy. Patient is showing response from current dose of Clozapine 200 mg. Will continue at current dose with Clozapine level on Saturday. Plan is to continue to observe patient for response and side effects from medications, and ongoing monitoring and evaluation. WEEKEND PLAN: 01/10/19 16:32 1. Patient received 2nd Invega Sustenna IM injection today. Reports injection site is sore, but no noticeable swelling, redness. 2. Clozaril level and CBC on Saturday. 3. Patient still talking to herself and responding to IS. Still quite psychotic. 4. Sleeping and eating well. 5. LTC/COM Subjective: Patient pacing in [place], mumbling to herself and making exaggerated hand gestures. MD overheard patient talking to herself in her room, stating "I don't want to be here" and talking about "getting out of this town." Patient refuses to respond to her name, "Amrit" and insists on being called "Doctor" or Dr. Byrne." Objective: Vital Signs Temp Pulse Resp BP Pulse Ox 36.5 C 112 H 18 121/70 H 94 01/10/19 08:00 01/10/19 08:00 01/10/19 08:00 01/10/19 08:00 01/10/19 08:00 Laboratory Results 01/08/19 07:00 MSE: Affect: Irritable Mood: No response TP: Disorganized, illogical TC: Denies SI/HI, still paranoid, delusional Perceptions: Denies AH/VH, but responds to IS Insight/Judgment: Impaired - Time Spent With Patient Time Spent With Patient: 15" - Pending Discharge Pending Discharge Within 24 Hours: No Pending Discharge Within 48 Hours: No ICD10 Worksheet Patient Problems: Problems Problem Status Onset Acute psychosis Acute Cannabis use disorder, severe, dependence Acute Psychosis Acute Schizoaffective disorder Chronic
[2019-01-11] MEDS: PALIPERIDONE 3 MG TAB.ER PO SCH (11:04)
[2019-01-11] MEDS: cloZAPine 25 MG TAB PO SCH (11:04)
--- NOTE | 2019-01-11 18:06 | SOAPPROG ---
SOAP Progress Note Assessment/Plan: Assessment: Per Lemuel Mendez's note: Schizoaffective Disorder, Bipolar Type. No improvement noted (see subjective/ objective note). Patient is not safe to discharge at this time as patient continues to exhibit signs of psychosis, and express psychosis symptoms. Patient requires continued inpatient care because of current psychosis, and requires inpatient level of care to stabilize in order to no longer be gravely disabled due to mental illness. Patient is unable to communicate her basic needs, unable to test reality, and continues to require prompting and direction from staff for ADLs. Patient exhibits inability to provide for herself, neglecting self-care, withdrawn from social interactions, currently shows inability to maintain any appropriate aspect of personal responsibility as an adult, patient becomes agitated and irritable easily and continues exhibited irritable behavior toward staff. Support system has inability to manage functional impairment at lower level of care. Patient could benefit from continued inpatient hospitalization for crisis stabilization, safety, and medication evaluation. Plan: 1. Psychotropic medications: After reviewing options, risks, and benefits patient agrees to continue current medications. No other medication changes at this time as more time is needed to determine ongoing tolerability and efficacy. Patient is showing response from current dose of Clozapine 200 mg. Will continue at current dose with Clozapine level on Saturday. Plan is to continue to observe patient for response and side effects from medications, and ongoing monitoring and evaluation. WEEKEND PLAN: 01/10/19 16:32 1. Patient received 2nd Invega Sustenna IM injection today. Reports injection site is sore, but no noticeable swelling, redness. 2. Clozaril level and CBC on Saturday. 3. Patient still talking to herself and responding to IS. Still quite psychotic. 4. Sleeping and eating well. 5. LTC/COM 01/11/19 18:02 1. MOC spoke to CC and was concerned that patient had decompensated so quickly after stopping meds for few days. She refused to return to her apartment and was found out in freezing cold without proper clothes. MO wants to be sure patient is "more stable" when she returns home. 2. Patient is compliant with medications. 3. Clozaril level on Saturday. Next CBC is due on 01/15/19. 4. LTC/COM Subjective: Patient still c/o soreness in her arm after 2 injections. However, there is no redness or swelling around injection site. Patient is still pacing in halls making unusual gestures with her hands. She is pleasant and cooperative with staff when making requests for more food and snacks. Patient is still reluctant to take IM meds stating "there is something in that shot that isn't good for me. " MOC spoke to CC and is concerned about patient returning home too soon since there is no one to supervise her. Objective: Vital Signs Temp Pulse Resp BP Pulse Ox 36.5 C 112 H 18 121/70 H 94 01/10/19 08:00 01/10/19 08:00 01/10/19 08:00 01/10/19 08:00 01/10/19 08:00 Laboratory Results 01/08/19 07:00 MSE: Affect: Blunted Mood: "Fine" TP: Disorganized TC: Denies SI/HI Insight /Judgment: Impaired - Time Spent With Patient Time Spent With Patient: 15" - Pending Discharge Pending Discharge Within 24 Hours: No Pending Discharge Within 48 Hours: No ICD10 Worksheet Patient Problems: Problems Problem Status Onset Acute psychosis Acute Cannabis use disorder, severe, dependence Acute Psychosis Acute Schizoaffective disorder Chronic
--- NOTE | 2019-01-12 06:32 | SOAPPROG ---
SOAP Progress Note Assessment/Plan: Assessment: Schizoaffective Disorder, Bipolar Type. No improvement noted (see subjective/ objective note). Patient is not safe to discharge at this time as patient continues to exhibit signs of psychosis, and express psychosis symptoms. Patient requires continued inpatient care because of current psychosis, and requires inpatient level of care to stabilize in order to no longer be gravely disabled due to mental illness. Patient is unable to communicate her basic needs, unable to test reality, and continues to require prompting and direction from staff for ADLs. Patient exhibits inability to provide for herself, withdrawn from social interactions, currently shows inability to maintain any appropriate aspect of personal responsibility as an adult, patient becomes agitated and irritable easily and continues exhibited irritable behavior toward staff. Support system has inability to manage functional impairment at lower level of care. Patient could benefit from continued inpatient hospitalization for crisis stabilization, safety, and medication evaluation. Plan: 1. Psychotropic medications: After reviewing options, risks, and benefits patient agrees to continue current medications. No medication changes at this time as more time is needed to determine ongoing tolerability and efficacy. Will continue at current dose with Clozapine level today. Plan is to continue to observe patient for response and side effects from medications, and ongoing monitoring and evaluation. 2. Review with patient informed consent and recommendations for psychotropic medication treatment listed below 3. Labs: Clozapine level today 4. Therapy: continue milieu and group therapy 5. Further investigation including gathering information from patients relatives and review of past case records to inform treatment plan. 6. Safety/Wellness plan and follow-up outpatient appointments to be established prior to discharge. Next steps are for patient to meet with personal caregiver to plan a safe discharge plan and establish outpatient services for ongoing treatment. 7. Confer with inpatient treatment team regarding treatment plan. 8. Psychosocial stressors addressed through manager of case 9. Legal status: LT / [facility] 10. Consider discharge this week if patient is in stable condition, safe, and has a safe discharge plan. PSYCHOTROPIC MEDICATION TREATMENT INFORMED CONSENT and RECOMMENDATIONS: Review nature of condition, diagnosis, and prognosis. Review nature and purpose of psychotropic medication treatment. Review type of psychotropic medications being ordered. Review risk and benefits of psychotropic medication treatment. Review probable length of time patient will need to take medications. Review risk and benefits of not undergoing psychotropic medication treatment. Review alternative treatments to psychotropic medications. Review psychotropic medications contraindications, drug-drug interactions, side effects, and importance of reporting any side effects to a psychiatric provider or nurse during inpatient hospitalization, and upon discharge to patients psychiatric outpatient provider, primary care provider, or other health rn progressive care unit. Review importance of asking a nurse, psychiatric provider, or primary care provider any questions or problems concerning the psychotropic medications. Verify patient understands the information that has been provided, and understands, accepts, and agrees to psychotropic medications. Review patients safety plan and importance of patient to report to staff while hospitalized if patient is ever a danger to self/others, or unable to care for self, and upon discharge, the importance for patient to contact [facility] or [facility], or go to the nearest emergency room, if patient is ever a danger to self/others, or unable to care for self. Recommend that upon discharge patient establish medication management treatment with a psychiatric provider, establishes routine therapy appointments, and follow-up with primary care provider. Verify patient understands and agrees to these recommendations. 01/12/19 06:32 Subjective: Following up with patient for evaluation of psychosis, suzi, and safety. Patient states, "Hello, I am doing fine. Thank you." Patient reports no side effects from current medications, and agrees to continue current medications. Objective: Vital Signs Temp Pulse Resp BP Pulse Ox 36.5 C 112 H 18 121/70 H 94 01/10/19 08:00 01/10/19 08:00 01/10/19 08:00 01/10/19 08:00 01/10/19 08:00 Laboratory Results 01/08/19 07:00 NURSING REPORT: Consulted with nursing for update on patients progress in treatment. Nurses report patient is not engaged in treatment, does not attend groups; slept 7 hours; expresses the following psychiatric symptoms: anxious and irritable; exhibits the following psychiatric symptoms: unable to test reality, irritable, disorganized, tangential, loose associations, nonsensical, continues to refer to herself as a doctor and corrects staff when called by her first name, continues to respond to internal stimuli; is eating all meals, requires continued prompting and direction from staff for ADLs, and is unable to communicate her basic needs; is agreeable to scheduled medications and taking as prescribed with no report of side effects, with no s/s of EPS/ akathisia, and denies SI/HI, denies A/V hallucinations, and reports delusions. MSE: The patient is a well-nourished female looking older than stated chronological age. Attire is appropriate dress is hospital garb. Grooming status is inappropriate and disheveled. Ambulation is independent. Gait is normal and coordinated. Posture is normal. Eye contact is inappropriate and staring. Motor activity is appropriate with purposeful, organized, coordinated movements; with no involuntary movements. Attitude is fairly cooperative, defensive and guarded at times. Patient appears attentive and relates well to this interviewer. Language production is spontaneous. Rate is pressured. Latency of response is shortened with irritable tone. Articulation is clear. Patient reports mood as okay with expansive and inappropriate affect. Patients thought process is disorganized, non-linear and illogical. Patient does not report suicidal/homicidal thoughts, ideas, or plans. Patient denies auditory, visual hallucinations. Patient reports delusions. Patient does not appear to be attending to internal stimuli. Patients attention and concentration are poor. Patient is oriented to person, place, and time. Patients insight is poor. Patients judgment is poor. - Time Spent With Patient Time Spent With Patient: 15 minutes, met with patient individually. - Pending Discharge Pending Discharge Within 24 Hours: No Pending Discharge Within 48 Hours: No ICD10 Worksheet Patient Problems: Problems Problem Status Onset Acute psychosis Acute Cannabis use disorder, severe, dependence Acute Psychosis Acute Schizoaffective disorder Chronic
[2019-01-12] MEDS: cloZAPine 25 MG TAB PO SCH ×2 (08:52→10:19)
--- NOTE | 2019-01-12 11:33 | ASMTBHDC ---
Notes Note: Notes: CC faxed [facility] client's chart; waiting to hear back if they can accept. Provider spoke to client and provided 24 hour notice to client. Date Signed: 01/12/2019 11:33 AM Electronically Signed By:Morris Acharya
--- NOTE | 2019-01-12 14:11 | ASMTCMCOM ---
CM Note CM Note Notes: CC confirmed [facility]- p/u for client to be tomorrow AM at 9am. Date Signed: 01/12/2019 02:10 PM Electronically Signed By:Morris Acharya
--- NOTE | 2019-01-12 14:35 | ASMTBHDC ---
Notes Note: Notes: CC faxed all necessary ppw to [facility] staff at the request of Antonella via P. [facility] is willing to accept client; Lemuel provided the 24 hour notice to client and [facility] is scheduled to p/u client tomorrow at 9am.* Date Signed: 01/12/2019 02:35 PM Electronically Signed By:Morris Acharya
[2019-01-13] MEDS: cloZAPine 25 MG TAB PO SCH (08:41)
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
== END 2019-01-13 09:02 | DRG 885 ==
LOC: EDUNIT# → BBEH 23:50
PROVIDERS: ADMIT Psychiatry & Neurology Behavioral Neurology & Neuropsychiatry; ATTEND Psychiatry & Neurology Behavioral Neurology & Neuropsychiatry
DX: F25.0 Schizoaffective disorder, bipolar type (principal); F12.20 Cannabis dependence, uncomplicated; F17.210 Nicotine dependence, cigarettes, uncomplicated; E66.09 Other obesity due to excess calories; Z68.34 Body mass index [BMI] 34.0-34.9, adult; K75.81 Nonalcoholic steatohepatitis (NASH); G62.9 Polyneuropathy, unspecified
CPT/HCPCS: 80159-90; 80305; G0480; J1630; J2060; J2426